=== PATIENT | male | born 1970 | race Caucasian/White ===

== ENCOUNTER 2018-01-04 18:21 | Emergency (ER) | payer MEDICARE, SELFPAY ==
[2018-01-04 18:22] VITALS: BP 115/76; PULSE 89; RESP 16; TEMP 36.6; O2SAT 94; BMI 17.4
--- NOTE | 2018-01-04 18:57 | CT_ITS ---
STUDY: CT BRAIN WITHOUT CONTRAST REASON FOR EXAM: Male, 47 years old. Trauma RADIATION DOSAGE (If Supplied By Facility): CTDIvol = ( 44.99 ) mGy, DLP = ( 1659.71 ) mGycm TECHNIQUE: Transaxial CT imaging of the brain was performed without administration of intravenous contrast material. Individualized dose optimization techniques were used for this CT. COMPARISON: None. FINDINGS: Normal soft tissue structures. Postsurgical changes status post right frontal and left parietal craniotomy.. There is depression of the left parietal bone at the surgical site.. There is markedly distention of the lateral third ventricles with normal size fourth ventricle and tiny sylvian aqueduct which may be consistent with aqueduct stenosis Normal white matter tracts of the cerebral hemispheres. Normal basal ganglia and thalami. Normal brainstem. Normal cerebellum. There are small bilateral bifrontal subdural effusions or cystic hygromas. There is no intracranial hemorrhage. There are no findings of an acute ischemic infarction. Mild mucosal thickening in the right ethmoid sinus CT/Brain/Head without Contrast IMPRESSION: Small bilateral bifrontal subdural effusions or cystic hygromas. 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 At the surgical site on the left there is depression of the bone flap but no evidence for acute hemorrhage Electronically Signed: Ghulam Levin MD at 19:50 EDT , Service support ,
[2018-01-04] MEDS: Lidocaine/Epi/Tetracaine 50 ML 1 APPLIC TOPICAL (19:23)
--- NOTE | 2018-01-04 20:22 | ED.VISSUMM ---
- ER Visit Summary Date of Service: 01/04/18 Chief Complaint: Fall History of Present Illness: The patient is a 47 M with history of schizophrenia, explosive anger fits, and TBI. Patient fell from his wheelchair at his extended care facility. He hit his forehead on the floor. There is no loss of consciousness per staff members. Patient has no complaints on arrival. Physical Examination: Vital signs unremarkable. Patient is lying in bed no acute distress. Head and neck examination was a 3 cm linear laceration of the upper forehead. Bleeding is well controlled at this time. There is no C-spine tenderness. Heart is regular rate and rhythm. Lung sounds are clear. There is no chest wall tenderness. Abdomen is soft nontender. Pelvis is stable. Extremity examination reveals no focal tenderness with good range of motion throughout. Test Results: CT head shows small bilateral bifrontal subdural effusions or cystic hygromas. 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 Postop changes are noted. There is no evidence of hemorrhage. Emergency Department Course and Treatment: Let was initially applied to the laceration. This was followed by 2 cc 1% lidocaine. Wound was cleansed and 6 simple interrupted sutures of 5-0 nylon were placed with good approximation. Patient tolerated the procedure well. I have recommended follow-up with neurology to compare this CT to any that he has had prior to see if the hydrocephalus changes are new. Treatment Plan: [] Disposition: Discharge Impression: 1. Mechanical fall 2. Closed head injury 3. Forehead laceration status post suture This note was generated with [employer] dictation software. It may contain incorrect words, spelling, and punctuation that were not noted in review of the chart prior to signing ED Disposition - Plan for ED Patient: Chief Complaint: Head Injury Referrals: Juan David Lyons [Primary Care Provider] -
--- NOTE | 2018-01-04 20:25 | ED.DEP ---
ED Disposition - Plan for ED Patient: Disposition: Home or Assisted Living Chief Complaint: Head Injury Instructions: ED Head Injury Closed, ED Laceration Facial Sutr Tape Referrals: Juan David Lyons [Primary Care Provider] - 7 Days for suture removal Additional Instructions: CT scan reveals possible changes of hydrocephalus. He needs to be evaluated by his doctor and possibly a neurologist who can compare this to prior CT scans.
[2018-01-04 21:28] VITALS: PULSE 82; RESP 16; O2SAT 95
--- NOTE | 2018-01-04 21:36 | ED.RN ---
report given to staff member at bedside who was on the phone with nurse at facility. States no need to call [facility] Health care for any further report. States understanding of care for wound/sutures. Denies questions.
== END 2018-01-04 21:39 | disposition home or self-care (01) ==
PROVIDERS: Emergency Provider Emergency Medicine; Family Provider Family Medicine; PCP Family Medicine
DX: S01.81XA Laceration without foreign body of other part of head, initial encounter (principal); W05.0XXA Fall from non-moving wheelchair, initial encounter; Y93.9 Activity, unspecified; Y92.129 Unspecified place in nursing home as the place of occurrence of the external cause; F20.9 Schizophrenia, unspecified; Z87.820 Personal history of traumatic brain injury; Z79.899 Other long term (current) drug therapy
CPT/HCPCS: 12013; 70450; 99284

== ENCOUNTER 2018-05-11 20:29 | Observation (INO) | payer MEDICARE, MEDICAID, SELFPAY ==
[2018-05-11 20:30] VITALS: BP 155/87; PULSE 62; RESP 14; TEMP 36.8; O2SAT 97; BMI 21.4
[2018-05-11 20:35] VITALS: BP 155/87; PULSE 60; RESP 14; TEMP 36.8
--- NOTE | 2018-05-11 20:47 | RAD_ITS ---
STUDY: X-RAY CHEST REASON FOR EXAM: Male, 48 years old. Cough TECHNIQUE: PA and 2 lateral views of the chest. COMPARISON: None. FINDINGS: Catheter noted in the upper abdomen The lungs are clear and expanded. There is no demonstrated pleural abnormality. Normal size heart. Normal mediastinum and myles. Normal visualized pulmonary arteries. Normal visualized aortic arch and descending thoracic aorta. Normal visualized thoracic spine. Normal visualized ribs, clavicles, and shoulders. There is no demonstrated abnormality of the visualized soft tissue structures of the upper abdomen. RAD/Chest PA and Lateral IMPRESSION: No acute pulmonary process Electronically Signed: Kevin Torres MD at 22:57 EST , Service support ,
--- NOTE | 2018-05-11 20:50 | ED.VISSUMM ---
- ER Visit Summary Date of Service: 05/11/18 Chief Complaint: Decreased oral intake and decreased urine output History of Present Illness: The patient is a 48 M who presents with decreased oral intake and decreased urine output per [facility] staff that began yesterday. Staff states the patient has not had any urine output since 0700 today. Staff reports that the patient has had decreased oral intake as well however, EMS states the patient was eating upon their arrival. Patient denies any fevers or chills. Patient denies any shortness of breath or chest pain. Patient denies any nausea or vomiting. Patient only answers yes/no questions and is a poor historian. Physical Examination: Vital signs are stable. Patient is afebrile. Patient is not tachycardic. Patient is in no acute distress. Oral mucosa is pink and somewhat dry. Neck is supple. Trachea is midline. There is no JVD noted. Heart was regular rate and rhythm. Lungs are clear but diminished bilaterally. There is adequate respiratory effort noted. Abdomen is soft. Bowel sounds are normal. There is no tenderness. There is no guarding noted. There is an erythematous macular rash to the face. There are no vesicles or crusting noted. There is no discharge or drainage. The rash is consistent with eczema. Patient is alert. Cranial nerves II through XII are intact. There are no focal motor or sensory deficits noted. Test Results: CBC was normal. Basic metabolic profile showed a mild hypokalemia at 3.4. Urinalysis did not show any evidence of urinary tract infection. PA and lateral chest x-ray does not show any acute cardiopulmonary process. Dilantin level was obtained and was elevated at 42.1. Emergency Department Course and Treatment: Patient was given an injection of Haldol. Patient became more cooperative after this. Case was discussed with the hospitalist. Patient will be admitted. Disposition: Admit to hospital Impression: Dilantin toxicity This note was generated with [employer] dictation software. It may contain incorrect words, spelling, and punctuation that were not noted in review of the chart prior to signing ED Disposition - Plan for ED Patient: Disposition: Acute Care Hospital [facility] Chief Complaint: General Illness Diagnosis: Dilantin toxicity Referrals: Juan David Lyons [Primary Care Provider] -
--- NOTE | 2018-05-11 20:55 | ED.DCSUM_ITS ---
- ER Visit Summary Date of Service: 05/11/18 Chief Complaint: Decreased oral intake and decreased urine output History of Present Illness: The patient is a 48 M who presents with decreased oral intake and decreased urine output per assisted staff that began yesterday. Staff states the patient has not had any urine output since 0700 today. Staff reports that the patient has had decreased oral intake as well however, EMS states the patient was eating upon their arrival. Patient denies any fevers or chills. Patient denies any shortness of breath or chest pain. Patient denies any nausea or vomiting. Patient only answers yes/no questions and is a poor historian. Physical Examination: Vital signs are stable. Patient is afebrile. Patient is not tachycardic. Patient is in no acute distress. Oral mucosa is pink and somewhat dry. Neck is supple. Trachea is midline. There is no JVD noted. Heart was regular rate and rhythm. Lungs are clear but diminished bilaterally. There is adequate respiratory effort noted. Abdomen is soft. Bowel sounds are normal. There is no tenderness. There is no guarding noted. There is an erythematous macular rash to the face. There are no vesicles or crusting noted. There is no discharge or drainage. The rash is consistent with eczema. Patient is alert. Cranial nerves II through XII are intact. There are no focal motor or sensory deficits noted. Test Results: CBC was normal. Basic metabolic profile showed a mild hypokalemia at 3.4. Urinalysis did not show any evidence of urinary tract infection. PA and lateral chest x-ray does not show any acute cardiopulmonary process. Dilantin level was obtained and was elevated at 42.1. Emergency Department Course and Treatment: Patient was given an injection of Haldol. Patient became more cooperative after this. Case was discussed with the hospitalist. Patient will be admitted. Disposition: Admit to hospital Impression: Dilantin toxicity This note was generated with [employer] dictation software. It may contain incorrect words, spelling, and punctuation that were not noted in review of the chart prior to signing ED Disposition - Plan for ED Patient: Disposition: Acute Care Hospital [facility] Chief Complaint: General Illness Diagnosis: Dilantin toxicity Referrals: Juan David Lyons [Primary Care Provider] -
[2018-05-11] MEDS: Haloperidol Lactate 5 MG/ML Vial 2 MG IM (21:35)
--- NOTE | 2018-05-11 21:47 | ED.RN ---
PT REFUSING IV AND BLOOD WORK. PT REPORTS, I WANT TO LEAVE, WHERE ARE MY KEYS? PT TRYING TO CLIMB OUT OF BED.THIS RN EDUCATED PT WHY HE IS IS PRESENT IN ED AND WHY HE CANNOT LEAVE. PT MAKING MULTIPLE ATTEMPTS TO HIT THIS RN. DR. RICHTER INFORMED OF PT AGITATION AND ATTEMPTS TO CRAWL OUT OF BED. PT REMOVES MONITOR AND GOWN AND MOVES RESTLESSLY IN THE BED. PT MEDICATED WITH HALDOL, SEE MAR. PT BEING OBSERVED.
[2018-05-11 22:03] LABS: Absolute Neutrophil Count 3.8 X10^3/uL (2.0-7.7); Basophil# 0.04 X10^3/uL; Basophil% 0.4 % (0-1); Eosinophil# 0.44 X10^3/uL; Eosinophils% 4.1 % (0-5); Hematocrit 40.1 % (40-54); Hemoglobin 13.2 g/dl (13.0-16.5); Lymphocyte % 48.1 % (19-41); Mean Corp Hgb Conc 32.9 g/gl (32-36); Mean Corpuscular Hgb 29.9 pg (27.0-32.0); Mean Corpuscular Volume 90.7 fL (80-94); Mean Platelet Vol. 8.9 fl (6.2-12.0); Monocyte# 1.36 X10^3/uL; Monocyte% 12.6 % (0-10); Neutrophil # 3.76 X10^3/uL (2.7-7.7); Neutrophil % 34.7 % (47-70); Platelet Count 317 K/mm3 (150-450); RBC Distribution Width CV 12.5 % (11.6-14.6); RBC Distribution Width SD 41.7 fl (35.1-43.9); Red Blood Count 4.42 M/mm3 (4.6-6.2); White Blood Count 10.8 K/mm3 (4.4-11.0)
[2018-05-11 22:04] LABS: Differential Indicated SCAN CRITERIA MET; POSITIVE COUNT NO; POSITIVE DIFFERENTIAL YES; POSITIVE MORPHOLOGY YES
[2018-05-11] MEDS: 0.9% Normal Saline 1,000 ML 1000 ML IV (22:21)
[2018-05-11 22:22] VITALS: BP 127/85; PULSE 70; RESP 16; O2SAT 95
[2018-05-11 22:31] LABS: Differential Comment SCANNED; Platelet Estimate ADEQUATE (ADEQ)
[2018-05-11 22:37] LABS: AST(SGOT) 17 U/L (15-37); Alanine Aminotransfer ALT/SGPT 26 U/L (16-61); Albumin, Serum 3.7 g/dL (3.2-5.0); Alkaline Phosphatase 225 U/L (45-117); Anion Gap 9 (5-15); BUN 19 mg/dL (7-18); BUN/Creat Ratio 31.1 RATIO (10-20); Calcium,Total 8.7 mg/dL (8.5-10.1); Chloride 103 mmol/L (98-107); Creatinine, Serum 0.61 mg/dL (0.70-1.30); EST Glomerular Filtration Rate 149 mL/min (>60); Est Glom Filt Rate - Afr Amer 180 mL/min (>60); Estimated Creatinine Clearance 120.08 ml/min; Globulin 3.7 g/dL (2.2-4.2); Glucose 61 mg/dL (74-106); Potassium 3.4 mmol/L (3.5-5.1); Protein, Total 7.4 g/dL (6.4-8.2); Sodium Level 141 mmol/L (136-145)
[2018-05-11 23:09] LABS: Mucous, Urine 0 SEEN /hpf (<or=2+); Red Blood Cells-Urine 0 SEEN /hpf (0-5); Squamous Epithelial Cells - UA 0 SEEN /hpf (0-5)
[2018-05-11 23:18] LABS: Color, Urine Yellow (Yellow); Glucose, Dipstick Normal (Normal); Ketone-Dipstick Negative (Negative); Leukocyte Esterase-Dipstick 25 /ul (Negative); Nitrite-Dipstick Negative (Negative); Occult Blood-Urine 10 /ul (Negative); Protein-Dipstick Negative (Negative); Urine Bilirubin Dipstick Negative (Negative); Urine Clarity Sl. Cloudy (Clear); Urine Urobilinogen Normal (Normal)
[2018-05-11 23:19] LABS: Amorphous Sediment 1+; Bacteria RARE /hpf (None Seen); White Blood Cells 0-5 SEEN /hpf (0-5)
[2018-05-11 23:22] LABS: Phenytoin (Dilantin) Level 42.1 mL (10.0-20.0)
--- NOTE | 2018-05-11 23:32 | HP.PCM_ITS ---
Problem List (1) Dilantin toxicity Status: Acute History of Present Illness Date of Admission: 05/11/18 Chief Complaint: Decreased oral intake and no urine output The patient is a 48 year old M who lives at a longterm with a previous history hypertension; subarachnoid hemorrhage and brain surgery; seizure disorder who was sent from the extended care facility to the emergency department because of decreased oral intake and no urine output for 1 day. At emergency department patient was found to have high Dilantin level. His potassium level was 3.4 and his glucose was 61. His creatinine was 0.61. BUN over creatinine was 31.1. On papers from the longterm his temperature was marked at 100.9; respiration of 8. However patient has been afebrile at the hospital. Past Medical History Medical History: Medical History (Last Updated 05/12/18 @ 01:45 by Leonardo Nieves MD) Seizure R56.9 HTN (hypertension) I10 Allergies No Known Allergies Allergy (Verified 05/11/18 20:30) Home Medications: Ambulatory Orders Medication Instructions Recorded Docusate Sodium [Colace Clear] 50 mg PO DAILY 01/04/18 Gabapentin [Neurontin] 400 mg PO QHS 01/04/18 Gabapentin [Neurontin] 400 mg PO TID 01/04/18 Haloperidol Decanoate [Haldol 50 mg IM QWEEK 01/04/18 Decanoate 50] Hydroxyzine Pamoate [Vistaril] 50 mg PO TID PRN PRN 01/04/18 Magnesium Oxide [Mag-Ox 400] 400 mg PO BID 01/04/18 Metoprolol Tartrate 25 mg PO TID 01/04/18 Multivit-Min/Iron Fum/Folic AC 1 each PO DAILY 01/04/18 [Izpqd-Pgbbbry-Pcakdhbl Tablet] Paroxetine HCl [Paxil] 40 mg PO DAILY 01/04/18 Phenytoin Na [Dilantin] 160 mg PO DAILY 01/04/18 Phenytoin Na [Dilantin] 200 mg PO BID 01/04/18 Quetiapine Fumarate [Seroquel] 100 mg PO DAILY 01/04/18 Sodium Bicarbonate 650 mg PO TID 01/04/18 Aspirin 81 mg PO DAILY 05/11/18 Phenytoin Sodium Extended 60 mg PO TID 05/11/18 [Dilantin] Surgical History: - - Unable to obtain since patient is not nontalkative. However emergency department doctor reported history of brain surgery. Lives: Longterm Smoking Status: Current every day smoker - *Family History Maternal History Items: - - Unable to obtain from patient since he is non talkative Paternal History Items: - - Unable to obtain from patient since he is non talkative Review of Systems Unable to obtain accurate/complete ROS d/t: Unable to obtain from patient since he is non talkative VTE Information - Inpt Only VTE Present on Admission: No VTE Mechan Device Prophylaxis: None VTE Pharm Prophylaxis ordered?: Yes Patient Problems: Active and Suspected Problems (Last Updated 05/12/18 @ 01:45 by Leonardo Nieves MD) Dilantin toxicity (Acute) - Physical Exam General: Alert, - - Mom took her to HEENT: Atraumatic Neck: Supple, No JVD, Negative Carotid Bruits Lungs: Clear to auscultation, Normal air movement Cardiovascular: Regular rate, No murmurs Abdomen: Bowel Sounds Present, Soft, Non Tender Extremities: No edema, Capillary Refill Less than 3 Seconds Skin: - - Erythematous rash with yellowish surrounding discolorations. Musculoskeletal: No Tenderness to Palpation of Joints or Extremities Neurological: - - Patient is not following commands. Psych/Mental Status: Normal Affect Vital Signs Temp Pulse Resp BP Pulse Ox 98.2 F 70 16 127/85 H 95 05/11/18 20:35 05/11/18 22:22 05/11/18 22:22 05/11/18 22:22 05/11/18 22:22 Oxygen Delivery Method Room Air Weight: 58.6 kg Body Mass Index (BMI) 21.4 Laboratory Tests Past 24 Hrs 05/11/18 05/11/18 05/11/18 11:00 22:05 22:12 WBC 10.8 RBC 4.42 L Hgb 13.2 Hct 40.1 MCV 90.7 MCH 29.9 MCHC 32.9 RDW 12.5 RDW Differential 41.7 Plt Count 317 MPV 8.9 Immature Gran % (Auto) 0.100 Neut % (Auto) 34.7 L Lymph % (Auto) 48.1 H [place] % (Auto) 12.6 H Eos % (Auto) 4.1 Baso % (Auto) 0.4 Absolute Neuts (auto) 3.8 Absolute Lymphs (auto) 5.20 H Total Counted Not Reportable Differential Comment SCANNED Platelet Estimate ADEQUATE Sodium 141 Potassium 3.4 L Chloride 103 Carbon Dioxide 29.0 Anion Gap 9 BUN 19 H Creatinine 0.61 L Estim Creat Clear Calc 120.08 Est GFR (MDRD) Af Amer 180 Est GFR (MDRD) Non-Af 149 BUN/Creatinine Ratio 31.1 H Glucose 61 L Calcium 8.7 Total Bilirubin 0.20 AST 17 ALT 26 Alkaline Phosphatase 225 H Total Protein 7.4 Albumin 3.7 Globulin 3.7 Albumin/Globulin Ratio 1.0 Urine Color Yellow Urine Clarity Sl. Cloudy Urine pH 7.0 Ur Specific Stamps 1.010 Urine Protein Negative Urine Glucose (UA) Normal Urine Ketones Negative Urine Occult Blood 10 H Urine Nitrite Negative Urine Bilirubin Negative Urine Urobilinogen Normal Ur Leukocyte Esterase 25 H Urine RBC 0 SEEN Urine WBC 0-5 SEEN Ur Squamous Epith Cells 0 SEEN Amorphous Sediment 1+ Urine Bacteria RARE Urine Mucus 0 SEEN Phenytoin 05/11/18 22:12 WBC RBC Hgb Hct MCV MCH MCHC RDW RDW Differential Plt Count MPV Immature Gran % (Auto) Neut % (Auto) Lymph % (Auto) [place] % (Auto) Eos % (Auto) Baso % (Auto) Absolute Neuts (auto) Absolute Lymphs (auto) Total Counted Differential Comment Platelet Estimate Sodium Potassium Chloride Carbon Dioxide Anion Gap BUN Creatinine Estim Creat Clear Calc Est GFR (MDRD) Af Amer Est GFR (MDRD) Non-Af BUN/Creatinine Ratio Glucose Calcium Total Bilirubin AST ALT Alkaline Phosphatase Total Protein Albumin Globulin Albumin/Globulin Ratio Urine Color Urine Clarity Urine pH Ur Specific Stamps Urine Protein Urine Glucose (UA) Urine Ketones Urine Occult Blood Urine Nitrite Urine Bilirubin Urine Urobilinogen Ur Leukocyte Esterase Urine RBC Urine WBC Ur Squamous Epith Cells Amorphous Sediment Urine Bacteria Urine Mucus Phenytoin 42.1 H* Assessment/Plan All Active Problems (Last Updated 05/12/18 @ 01:45 by Leonardo Nieves MD) Dilantin toxicity (Acute) The patient is a 48 year old M who lives at a longterm with a significant history of hypertension; subarachnoid hemorrhage; seizure disorder who was sent from the extended care facility to the emergency department because of decreased oral intake and no urine output for 1 day; and found to have elevated Dilantin level. Dilantin toxicity Notably patient was not noted to have any nystagmus; or unstable vitals. He is not grossly bradycardic or hypotensive. Hold Dilantin for now Placed on telemetry monitoring. Seizure precautions in place Dehydration His BUN is 19; while his creatinine is 0.61. His low creatinine is due to his poor muscle mass from probably lying down all the time. We will hydrate patient with dextrose with potassium especially as patient has mild hyperkalemia and hypoglycemia. Hypoglycemia Likely due to poor oral intake. Dextrose and potassium ordered. Accucheck Hypokalemia Likely due to poor intake Decrease potassium ordered. Seizure disorder Dilantin on hold at this time Cardiac precautions in place Continue gabapentin Hypertension Due to Dilantin toxicity which can cause hypotension although patient is not hypotensive at this time would hold metoprolol. With put patient on as needed labetalol. Elevated alkaline phosphatase level Review of medical records show that this is chronic Depression Paxil continued Tobacco abuse Counseled DVT prophylaxis Subcutaneous heparin Code Visit OBSV E&M: [id number] Initial observation care L3
[2018-05-12] VITALS (19 sets, daily range): BP systolic 96–135; BP diastolic 65–92; PULSE 59–76; RESP 14–18; TEMP 36.3–37.1; O2SAT 95–100; BMI 19.5; BMI 19.6
[2018-05-12] MEDS: Potassium Chloride 40 MEQ in Dext 5%-0.45% NS 1,000 ML 100 MEQ IV (01:42)
[2018-05-12 01:56] LABS: Bedside Glucose 68 mg/dL (70-110)
[2018-05-12 03:56] LABS: Bedside Glucose 92 mg/dL (70-110)
[2018-05-12] MEDS: Heparin Injection (Vial) 5,000 UNIT/ML VIAL 5000 UNIT SC ×3 (06:24→21:34)
[2018-05-12] MEDS: Sodium Bicarbonate 650 MG Tablet PO ×3 (06:24→21:34)
[2018-05-12] MEDS: Gabapentin 400 MG Capsule PO ×3 (08:00→21:34)
[2018-05-12] MEDS: Aspirin 81 MG TAB.CHEW PO (08:00)
[2018-05-12] MEDS: Multivitamins,Ther W-Minerals Tablet 1 TABLET PO (08:00)
[2018-05-12] MEDS: Magnesium Oxide 400 MG Tablet PO ×2 (09:47→21:34)
[2018-05-12] MEDS: QUEtiapine 100 MG Tablet PO (09:47)
[2018-05-12] MEDS: Docusate Sodium 100 MG/10 ML UDC 50 MG PO (09:57)
--- NOTE | 2018-05-12 10:09 | CASEMGMT ---
Patient is from [facility]. 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 Plan: Return to [facility] under intermediate level of care. Poonam DUCKWORTH MSW
--- NOTE | 2018-05-12 11:49 | PCM.TXEXTCAR ---
- Diet 05/12/18 00:34 Diet: Cardiac/Low Cholesterol Food consistency:: Regular Liquid Consistency:: Regular/Thin Is pt able to select menu?: No - Routine Orders/Code Status Code Status: DNRCC - Allergies/Procedures Done in Hospital Allergies/Adverse Reactions: Allergies No Known Allergies Allergy (Verified 05/11/18 20:30) - Type of Care/Length of Stay Estimated LOS: More Than 30 Days Type of Care Needed: Intermediate Rehab Potential: Poor Prognosis: Poor - Additional Orders/Day of Discharge Day of Discharge: 05/12/18 - Follow Up Care Primary Care Physician: Juan David Lyons [Primary Care Provider] -
--- NOTE | 2018-05-12 11:51 | PCM.DC.SUM ---
Discharge Date and Diagnosis - Problem List Patient Problems: Active and Suspected Problems (Last Updated 05/12/18 @ 01:45 by Leonardo Nieves MD) Dilantin toxicity (Acute) Date of Admission: 05/11/18 - Primary Discharge Diagnosis Active and Suspected Problems (Last Updated 05/12/18 @ 01:45 by Leonardo Nieves MD) Dilantin toxicity (Acute) Hospital Course and Treatment Summary of Care Provided: The patient is a 48 year old M [] Patient Problems: Active and Suspected Problems (Last Updated 05/12/18 @ 01:45 by Leonardo Nieves MD) Dilantin toxicity (Acute) - Physical Exam Vital Signs Temp Pulse Resp BP Pulse Ox 98.4 F 66 14 135/76 H 96 05/12/18 08:00 05/12/18 08:00 05/12/18 08:00 05/12/18 08:00 05/12/18 08:00 Oxygen Delivery Method Room Air Weight: 53.3 kg Body Mass Index (BMI) 19.5 Intake and Output for Last 24 Hours 05/10/18 05/11/18 05/12/18 23:59 23:59 23:59 Intake Total 505 / 505 Balance 505 / 505 Laboratory Tests Past 24 Hrs 05/11/18 05/11/18 05/11/18 11:00 22:05 22:12 WBC 10.8 RBC 4.42 L Hgb 13.2 Hct 40.1 MCV 90.7 MCH 29.9 MCHC 32.9 RDW 12.5 RDW Differential 41.7 Plt Count 317 MPV 8.9 Immature Gran % (Auto) 0.100 Neut % (Auto) 34.7 L Lymph % (Auto) 48.1 H [place] % (Auto) 12.6 H Eos % (Auto) 4.1 Baso % (Auto) 0.4 Absolute Neuts (auto) 3.8 Absolute Lymphs (auto) 5.20 H Total Counted Not Reportable Differential Comment SCANNED Platelet Estimate ADEQUATE Sodium 141 Potassium 3.4 L Chloride 103 Carbon Dioxide 29.0 Anion Gap 9 BUN 19 H Creatinine 0.61 L Estim Creat Clear Calc 120.08 Est GFR (MDRD) Af Amer 180 Est GFR (MDRD) Non-Af 149 BUN/Creatinine Ratio 31.1 H Glucose 61 L Calcium 8.7 Total Bilirubin 0.20 AST 17 ALT 26 Alkaline Phosphatase 225 H Total Protein 7.4 Albumin 3.7 Globulin 3.7 Albumin/Globulin Ratio 1.0 Urine Color Yellow Urine Clarity Sl. Cloudy Urine pH 7.0 Ur Specific [place] 1.010 Urine Protein Negative Urine Glucose (UA) Normal Urine Ketones Negative Urine Occult Blood 10 H Urine Nitrite Negative Urine Bilirubin Negative Urine Urobilinogen Normal Ur Leukocyte Esterase 25 H Urine RBC 0 SEEN Urine WBC 0-5 SEEN Ur Squamous Epith Cells 0 SEEN Amorphous Sediment 1+ Urine Bacteria RARE Urine Mucus 0 SEEN Phenytoin 05/11/18 05/12/18 22:12 11:32 WBC RBC Hgb Hct MCV MCH MCHC RDW RDW Differential Plt Count MPV Immature Gran % (Auto) Neut % (Auto) Lymph % (Auto) [place] % (Auto) Eos % (Auto) Baso % (Auto) Absolute Neuts (auto) Absolute Lymphs (auto) Total Counted Differential Comment Platelet Estimate Sodium Potassium Chloride Carbon Dioxide Anion Gap BUN Creatinine Estim Creat Clear Calc Est GFR (MDRD) Af Amer Est GFR (MDRD) Non-Af BUN/Creatinine Ratio Glucose Calcium Total Bilirubin AST ALT Alkaline Phosphatase Total Protein Albumin Globulin Albumin/Globulin Ratio Urine Color Urine Clarity Urine pH Ur Specific [place] Urine Protein Urine Glucose (UA) Urine Ketones Urine Occult Blood Urine Nitrite Urine Bilirubin Urine Urobilinogen Ur Leukocyte Esterase Urine RBC Urine WBC Ur Squamous Epith Cells Amorphous Sediment Urine Bacteria Urine Mucus Phenytoin 42.1 H* Pending POC Glucose 05/12/18 05/12/18 03:50 01:47 POC Glucose 92 68 L Home Medications: Medications to take at Discharge Docusate Sodium [Colace Clear] 50 mg PO DAILY 01/04/18 Gabapentin [Neurontin] 400 mg PO QHS 01/04/18 Gabapentin [Neurontin] 400 mg PO TID 01/04/18 Haloperidol Decanoate [Haldol Decanoate 50] 50 mg IM QWEEK 01/04/18 Hydroxyzine Pamoate [Vistaril] 50 mg PO TID PRN PRN 01/04/18 Magnesium Oxide [Mag-Ox 400] 400 mg PO BID 01/04/18 Metoprolol Tartrate 25 mg PO TID 01/04/18 Multivit-Min/Iron Fum/Folic AC [Yapyx-Qpiexdl-Edzjdgdf Tablet] 1 each PO DAILY 01/04/18 Paroxetine HCl [Paxil] 40 mg PO DAILY 01/04/18 Phenytoin Na [Dilantin] 200 mg PO BID 01/04/18 Quetiapine Fumarate [Seroquel] 100 mg PO DAILY 01/04/18 Sodium Bicarbonate 650 mg PO TID 01/04/18 Aspirin 81 mg PO DAILY 05/11/18 Primary Care Physician: Juan David Lyons [Primary Care Provider] - Medical Necessity - Tobacco Use Smoking Status: Current every day smoker
--- NOTE | 2018-05-12 12:04 | CASEMGMT ---
Patient is ready for discharge back to [facility] today. CÉSAR faxed orders. Called [facility] and arranged for patient to get picked up at 1p via cot. CÉSAR called patient's mom and let her know about d/c. CÉSAR called [facility] and let them know cone picker time for patient. Plan: d/c back to [facility] under intermediate level of care. [facility] to transport via cot. Poonam DUCKWORTH MSW
[2018-05-12 12:39] LABS: Phenytoin (Dilantin) Level 38.3 mL (10.0-20.0)
--- NOTE | 2018-05-12 12:45 | CASEMGMT ---
Patient's discharge is canceled as his Dilantin level is still high. SW notified patient's mom, [place] and [place]. Poonam DUCKWORTH LOAN EXPEDITOR
--- NOTE | 2018-05-12 12:47 | PCM.PN.HOSP ---
Patient Problems: Active and Suspected Problems (Last Updated 05/12/18 @ 01:45 by Leonardo Nieves MD) Dilantin toxicity (Acute) Subjective: Patient is a 48-year-old gentleman with history of subarachnoid hemorrhage with subsequent shunt, seizure disorder currently residing at an extended care facility brought to the emergency department with increasing lethargy decreased oral intake and urinary output for the day. Patient was found to have markedly elevated Dilantin level admitted to a monitored bed for further management Objective: GENERAL: Appears not to be in distress HEENT: moist oral mucosa EYES; Anicteric, Normal Conjunctiva NECK; supple, normal thyroid, RESPIRATORY: Diminished to auscultation bilaterally, CARDIOVASCULAR: Regular S1 S2, GI: soft, non-tender, normoactive bowel sounds, : No Renal angle tenderness; EXTREMITIES: No edema, no clubbing, NEURO: Awake; SKIN: No Rash PSYCH; very flat affect Vitals/I&O's: Vital Signs Temp Pulse Resp BP Pulse Ox 98.5 F 60 16 96/68 97 05/12/18 12:26 05/12/18 12:26 05/12/18 12:26 05/12/18 12:26 05/12/18 12:26 Oxygen Delivery Method Room Air Weight: 53.3 kg Body Mass Index (BMI) 19.5 Intake and Output for Last 24 Hours 05/10/18 05/11/18 05/12/18 23:59 23:59 23:59 Intake Total 1366 / 1366 Balance 1366 / 1366 Laboratory Results 05/11/18 11:00: Urine Color Yellow, Urine Clarity Sl. Cloudy, Urine pH 7.0, Ur Specific [place] 1.010, Urine Protein Negative, Urine Glucose (UA) Normal, Urine Ketones Negative, Urine Occult Blood 10 H, Urine Nitrite Negative, Urine Bilirubin Negative, Urine Urobilinogen Normal, Ur Leukocyte Esterase 25 H, Urine RBC 0 SEEN, Urine WBC 0-5 SEEN, Ur Squamous Epith Cells 0 SEEN, Amorphous Sediment 1+, Urine Bacteria RARE, Urine Mucus 0 SEEN 05/11/18 22:05: WBC 10.8, RBC 4.42 L, Hgb 13.2, Hct 40.1, MCV 90.7, MCH 29.9, MCHC 32.9, RDW 12.5, RDW Differential 41.7, Plt Count 317, MPV 8.9, Immature Gran % (Auto) 0.100, Neut % (Auto) 34.7 L, Lymph % (Auto) 48.1 H, [place] % (Auto) 12.6 H, Eos % (Auto) 4.1, Baso % (Auto) 0.4, Absolute Neuts (auto) 3.8, Absolute Lymphs (auto) 5.20 H, Total Counted Not Reportable, Differential Comment SCANNED, Platelet Estimate ADEQUATE 05/11/18 22:12: Sodium 141, Potassium 3.4 L, Chloride 103, Carbon Dioxide 29.0, Anion Gap 9, BUN 19 H, Creatinine 0.61 L, Estim Creat Clear Calc 120.08, Est GFR (MDRD) Af Amer 180, Est GFR (MDRD) Non-Af 149, BUN/Creatinine Ratio 31.1 H, Glucose 61 L, Calcium 8.7, Total Bilirubin 0.20, AST 17, ALT 26, Alkaline Phosphatase 225 H, Total Protein 7.4, Albumin 3.7, Globulin 3.7, Albumin/Globulin Ratio 1.0 05/11/18 22:12: Phenytoin 42.1 H* 05/12/18 01:47: POC Glucose 68 L 05/12/18 03:50: POC Glucose 92 05/12/18 11:32: Phenytoin 38.3 H* [facility] Admin: 05/12/18 08:00 Dose: 81 mg Bisacodyl (Dulcolax) 5 mg PO DAILY PRN PRN PRN Reason: Constipation Docusate Sodium (Colace Syrup) 50 mg PO DAILY ON LICENSE OF [facility] Last Admin: 05/12/18 09:57 Dose: 50 mg Gabapentin ([facility]ontin) [facility] Admin: 05/12/18 12:25 Dose: 400 mg Heparin Sodium (Porcine) (Heparin Na) 5,000 unit SC Q8 ON LICENSE OF [facility] Last Admin: 05/12/18 06:24 Dose: 5,000 unit Hydroxyzine Pamoate (Vistaril Pamoate Capsule) 50 mg PO TID PRN PRN PRN Reason: AGITATION Labetalol HCl (Trandate) 10 mg IV Q4H PRN PRN PRN Reason: SBP>160 Magnesium Hydroxide (Milk Of Magnesia) 30 ml PO DAILY PRN PRN PRN Reason: Constipation Magnesium Oxide (Mag-Ox 400) 400 mg PO BID ON LICENSE OF [facility] Last Admin: 05/12/18 09:47 Dose: 400 mg Multivitamins/Minerals (Multivitamin With Minerals) 1 tablet PO DAILYCM ON LICENSE OF [facility] Last Admin: 05/12/18 08:00 Dose: 1 tablet Paroxetine HCl (Paxil) 40 mg PO DAILY ON LICENSE OF [facility] Last Admin: 05/12/18 09:47 Dose: 40 mg Quetiapine Fumarate (Seroquel) 100 mg PO DAILY ON LICENSE OF [facility] Last Admin: 05/12/18 09:47 Dose: 100 mg Sodium Bicarbonate (Sodium Bicarbonate) 650 mg PO TID ON LICENSE OF [facility] Last Admin: 05/12/18 06:24 Dose: 650 mg Sodium Chloride () 5 - 15 ml IV UD PRN PRN Reason: SALINE FLUSH Medical Necessity - Tobacco Use Smoking Status: Current every day smoker Assessment/Plan All Active Problems (Last Updated 05/12/18 @ 01:45 by Leonardo Nieves MD) Dilantin toxicity (Acute) Patient is a 48-year-old gentleman with history of subarachnoid hemorrhage with subsequent shunt, seizure disorder currently residing at an extended care facility brought to the emergency department with increasing lethargy decreased oral intake and urinary output for the day. Patient was found to have markedly elevated Dilantin level admitted to a monitored bed for further management 1. Acute Dilantin toxicity patient has been admitted to a monitored bed for continuous telemetry monitoring 2. History of subarachnoid hemorrhage with subsequent evacuation. 3. Seizure disorder did continue patient antiseizure medications except for Dilantin with plans to adjust doses on discharge 4. Hypokalemia corrected per protocol 5. Hypertension patient antihypertensives held on admission in view of patient markedly elevated Dilantin levels which can cause hypotension 6. Depression with anxiety patient is on SSRI 7. DVT prophylaxis SC heparin Code Visit Inpatient E&M: 82998 Subs Hosp L3
[2018-05-12 17:35] LABS: Bedside Glucose 109 mg/dL (70-110)
[2018-05-12 21:50] LABS: Bedside Glucose 106 mg/dL (70-110)
[2018-05-13 03:21] VITALS: PULSE 61
[2018-05-13 03:49] VITALS: BP 137/99; PULSE 61; RESP 16; TEMP 36.9; O2SAT 98
[2018-05-13] MEDS: Heparin Injection (Vial) 5,000 UNIT/ML VIAL 5000 UNIT SC (06:08)
[2018-05-13] MEDS: Sodium Bicarbonate 650 MG Tablet PO (06:30)
[2018-05-13 06:35] LABS: Bedside Glucose 85 mg/dL (70-110)
[2018-05-13 07:01] VITALS: PULSE 65
[2018-05-13 08:00] VITALS: O2SAT 95
[2018-05-13 08:40] VITALS: BP 124/84; PULSE 87; RESP 16; TEMP 36.8; O2SAT 99
[2018-05-13] MEDS: Magnesium Oxide 400 MG Tablet PO (08:46)
[2018-05-13] MEDS: Multivitamins,Ther W-Minerals Tablet 1 TABLET PO (08:46)
[2018-05-13] MEDS: Aspirin 81 MG TAB.CHEW PO (08:46)
[2018-05-13] MEDS: QUEtiapine 100 MG Tablet PO (08:46)
[2018-05-13] MEDS: Gabapentin 400 MG Capsule PO ×2 (08:47→12:46)
[2018-05-13] MEDS: Docusate Sodium 100 MG/10 ML UDC 50 MG PO (08:47)
[2018-05-13 10:08] LABS: Phenytoin (Dilantin) Level 36.5 mL (10.0-20.0)
--- NOTE | 2018-05-13 10:31 | PCM.DC.SUM ---
Discharge Date and Diagnosis - Problem List Patient Problems: Active and Suspected Problems (Last Updated 05/12/18 @ 01:45 by Leonardo Nieves MD) Dilantin toxicity (Acute) Date of Admission: 05/11/18 Date of Discharge: 05/13/18 - Primary Discharge Diagnosis Active and Suspected Problems (Last Updated 05/12/18 @ 01:45 by Leonardo Nieves MD) Dilantin toxicity (Acute) Hospital Course and Treatment Summary of Care Provided: Patient is a 48-year-old gentleman with history of subarachnoid hemorrhage with subsequent shunt, seizure disorder currently residing at an extended care facility brought to the emergency department with increasing lethargy decreased oral intake and urinary output for the day. Patient was found to have markedly elevated Dilantin level admitted to a monitored bed for further management 1. Acute Dilantin toxicity patient has been admitted to a monitored bed for continuous telemetry monitoring patient did improve clinically [facility]in 2. History of subarachnoid hemorrhage with subsequent evacuation. 3. Seizure disorder did continue patient antiseizure medications except for Dilantin with plans to adjust doses on discharge 4. Hypokalemia corrected per protocol 5. Hypertension patient antihypertensives held on admission in view of patient markedly elevated Dilantin levels which can cause hypotension 6. Depression with anxiety patient is on SSRI 7. DVT prophylaxis SC heparin Patient Problems: Active and Suspected Problems (Last Updated 05/12/18 @ 01:45 by Leonardo Nieves MD) Dilantin toxicity (Acute) - Physical Exam General: Cooperative HEENT: Atraumatic Neck: Supple Lungs: Clear to auscultation Cardiovascular: Regular rate, Regular Rhythm Psych/Mental Status: Normal Affect Vital Signs Temp Pulse Resp BP Pulse Ox 98.3 F 87 16 124/84 H 99 05/13/18 08:40 05/13/18 08:40 05/13/18 08:40 05/13/18 08:40 05/13/18 08:40 Oxygen Delivery Method Room Air Weight: 53.3 kg Body Mass Index (BMI) 19.5 Intake and Output for Last 24 Hours 05/11/18 05/12/18 05/13/18 23:59 23:59 23:59 Intake Total 1366 / 1366 Balance 1366 / 1366 Laboratory Tests Past 24 Hrs 12/17/18 12/18/18 11:32 08:45 Phenytoin 38.3 H* 36.5 H* POC Glucose 05/13/18 05/12/18 05/12/18 06:27 21:32 17:30 POC Glucose 85 106 109 Discharge Diet: No Restrictions Discharge Activity: May Not Drive Home Medications: Medications to take at Discharge Docusate Sodium [Colace Clear] 50 mg PO DAILY 01/04/18 Gabapentin [Neurontin] 400 mg PO QHS 01/04/18 Gabapentin [Neurontin] 400 mg PO TID 01/04/18 Haloperidol Decanoate [Haldol Decanoate 50] 50 mg IM QWEEK 01/04/18 Hydroxyzine Pamoate [Vistaril] 50 mg PO TID PRN PRN 01/04/18 Magnesium Oxide [Mag-Ox 400] 400 mg PO BID 01/04/18 Metoprolol Tartrate 25 mg PO TID 01/04/18 Multivit-Min/Iron Fum/Folic AC [Gjwbv-Pavnkny-Ikspvtli Tablet] 1 each PO DAILY 01/04/18 Paroxetine HCl [Paxil] 40 mg PO DAILY 01/04/18 Phenytoin Na [Dilantin] 200 mg PO BID 01/04/18 Quetiapine Fumarate [Seroquel] 100 mg PO DAILY 01/04/18 Sodium Bicarbonate 650 mg PO TID 01/04/18 Aspirin 81 mg PO DAILY 05/11/18 Primary Care Physician: Juan David Lyons [Primary Care Provider] - Please follow up with your Primary Care Physician in: IN 1-2 WEEKS Disposition: Asstd Living/Non-Skill NH Minutes spent on discharge:: 35 Patient Condition:: Stable Medical Necessity - Tobacco Use Smoking Status: Current every day smoker Meaningful Use Info Meaningful Use Diagnoses (Choose all that apply): None applicable Code Visit OBSV E&M: 10667 Observation care discharge
--- NOTE | 2018-05-13 10:36 | DS.PCM_ITS ---
Discharge Date and Diagnosis - Problem List Patient Problems: Active and Suspected Problems (Last Updated 05/12/18 @ 01:45 by Leonardo Nieves MD) Dilantin toxicity (Acute) Date of Admission: 05/11/18 Date of Discharge: 05/13/18 - Primary Discharge Diagnosis Active and Suspected Problems (Last Updated 05/12/18 @ 01:45 by Leonardo Nieves MD) Dilantin toxicity (Acute) Hospital Course and Treatment Summary of Care Provided: Patient is a 48-year-old gentleman with history of subarachnoid hemorrhage with subsequent shunt, seizure disorder currently residing at an [facility] brought to the emergency department with increasing lethargy decreased oral intake and urinary output for the day. Patient was found to have markedly elevated Dilantin level admitted to a monitored bed for further management 1. Acute Dilantin toxicity patient has been admitted to a monitored bed for continuous telemetry monitoring patient did improve clinically [facility] with reduced dose of Dilantin 2. History of subarachnoid hemorrhage with subsequent evacuation. 3. Seizure disorder did continue patient antiseizure medications except for Dilantin with plans to adjust doses on discharge 4. Hypokalemia corrected per protocol 5. Hypertension patient antihypertensives held on admission in view of patient markedly elevated Dilantin levels which can cause hypotension 6. Depression with anxiety patient is on SSRI 7. DVT prophylaxis SC heparin Patient Problems: Active and Suspected Problems (Last Updated 05/12/18 @ 01:45 by Leonardo Nieves MD) Dilantin toxicity (Acute) - Physical Exam General: Cooperative HEENT: Atraumatic Neck: Supple Lungs: Clear to auscultation Cardiovascular: Regular rate, Regular Rhythm Psych/Mental Status: Normal Affect Vital Signs Temp Pulse Resp BP Pulse Ox 98.3 F 87 16 124/84 H 99 05/13/18 08:40 05/13/18 08:40 05/13/18 08:40 05/13/18 08:40 05/13/18 08:40 Oxygen Delivery Method Room Air Weight: 53.3 kg Body Mass Index (BMI) 19.5 Intake and Output for Last 24 Hours 05/11/18 05/12/18 05/13/18 23:59 23:59 23:59 Intake Total 1366 / 1366 Balance 1366 / 1366 Laboratory Tests Past 24 Hrs 05/12/18 05/13/18 11:32 08:45 Phenytoin 38.3 H* 36.5 H* POC Glucose 05/13/18 05/12/18 05/12/18 06:27 21:32 17:30 POC Glucose 85 106 109 Discharge Diet: No Restrictions Discharge Activity: May Not Drive Home Medications: Medications to take at Discharge Docusate Sodium [Colace Clear] 50 mg PO DAILY 01/04/18 Gabapentin [Neurontin] 400 mg PO QHS 01/04/18 Gabapentin [Neurontin] 400 mg PO TID 01/04/18 Haloperidol Decanoate [Haldol Decanoate 50] 50 mg IM QWEEK 01/04/18 Hydroxyzine Pamoate [Vistaril] 50 mg PO TID PRN PRN 01/04/18 Magnesium Oxide [Mag-Ox 400] 400 mg PO BID 01/04/18 Metoprolol Tartrate 25 mg PO TID 01/04/18 Multivit-Min/Iron Fum/Folic AC [Pusah-Vrdokzz-Njteddty Tablet] 1 each PO DAILY 01/04/18 Paroxetine HCl [Paxil] 40 mg PO DAILY 01/04/18 Phenytoin Na [Dilantin] 200 mg PO BID 01/04/18 Quetiapine Fumarate [Seroquel] 100 mg PO DAILY 01/04/18 Sodium Bicarbonate 650 mg PO TID 01/04/18 Aspirin 81 mg PO DAILY 05/11/18 Primary Care Physician: Juan David Lyons [Primary Care Provider] - Please follow up with your Primary Care Physician in: IN 1-2 WEEKS Disposition: Asstd Living/Non-Skill NH Minutes spent on discharge:: 35 Patient Condition:: Stable Medical Necessity - Tobacco Use Smoking Status: Current every day smoker Meaningful Use Info Meaningful Use Diagnoses (Choose all that apply): None applicable Code Visit OBSV E&M: 27194 Observation care discharge
--- NOTE | 2018-05-13 11:05 | CASEMGMT ---
Patient is being discharged back to [facility] today. Called [facility] and let them know. CÉSAR also called [facility] and arranged for patient to get picked up at 1p via cot. CÉSAR notified patient's mom and supervisor in charge. Plan: Return to [facility] under intermediate level of care. [facility] Rub[facility] transported him via cot. Poonam DUCKWORTH MSW
[2018-05-13 11:15] VITALS: PULSE 100
--- NOTE | 2018-05-13 12:28 | PHA.DC.MR ---
Pharmacy Service has performed discharge medication reconciliation for this patient upon transfer to [facility]. The patient's discharge medication list was reviewed for discrepancies and discrepancies were resolved. Home Medications Docusate Sodium [Colace Clear] 50 mg PO DAILY 01/04/18 Gabapentin [Neurontin] 400 mg PO QHS 01/04/18 Gabapentin [Neurontin] 400 mg PO TID 01/04/18 Haloperidol Decanoate [Haldol Decanoate 50] 50 mg IM QWEEK 01/04/18 Hydroxyzine Pamoate [Vistaril] 50 mg PO TID PRN PRN 01/04/18 Magnesium Oxide [Mag-Ox 400] 400 mg PO BID 01/04/18 Metoprolol Tartrate 25 mg PO TID 01/04/18 Multivit-Min/Iron Fum/Folic AC [Kfoyy-Pukfwaf-Zeswbofx Tablet] 1 each PO DAILY 01/04/18 Paroxetine HCl [Paxil] 40 mg PO DAILY 01/04/18 Phenytoin Na [Dilantin] 200 mg PO BID 01/04/18 Quetiapine Fumarate [Seroquel] 100 mg PO DAILY 01/04/18 Sodium Bicarbonate 650 mg PO TID 01/04/18 Aspirin 81 mg PO DAILY 05/11/18
--- NOTE | 2018-05-13 13:30 | CASEMGMT ---
Pt is unable to sign PETER form. Call to pt's mother as she will not be coming to [facility] today and will be meeting pt [place] when he arrives there. This RN CM explained form to mother via phone, she voiced understanding, and verbally consents to PETER form at this time. Original to chart. SStaten MERRY SINCLAIR
--- OUTSIDE RECORDS SUMMARY | 2018-08-13 14:03 | XMS RPT_ITS ---
:1970 Author Organization [place] Care Team Providers Name Role Phone PAULA VALADEZ Admitting Unavailable DARLINE GREWAL) Consulting Unavailable VALERIE ORELLANA Attending Unavailable EVERARDO SARAH) Admitting Unavailable EVERARDO SARAH) Attending Unavailable JUANITO, SYMA Consulting Unavailable Ran, Dr. Colvin Attending Unavailable Ran, Dr. Colvin Attending Unavailable Ran, Dr. Colvin Attending Unavailable FRANCI FELICIANO (DO) Attending Unavailable DONN, ARTI C Referring Unavailable STOJICCURTIS Attending Unavailable DONN, ARTI C Referring Unavailable Patricia Hunter Attending Unavailable Juan David Lyons Primary Care Unavailable Juan David Lyons Primary Care Unavailable Leonardo Nieves Admitting Unavailable aMulik Carrillo Attending Unavailable Leonardo Nieves Admitting Unavailable AgjustingLeonardo Attending Unavailable Juan David Lyons Primary Care Unavailable Leonardo Nieves Consulting Unavailable Leonardo Nieves Admitting Unavailable Maulik Carrillo Attending Unavailable Juan David Lyons Primary Care Unavailable Maulik Carrillo Consulting Unavailable Leonardo Nieves Admitting Unavailable Maulik Carrillo Attending Unavailable Juan David Lyons Primary Care Unavailable Maulik Carrillo Consulting Unavailable CAROLIN JI Attending Unavailable VISWANATH, BASAVARAJAPPA Primary Care Unavailable OMAR LOPEZ Attending Unavailable CORONADO, ARTI Primary Care Unavailable CORONADO, ARTI Primary Care Unavailable SADAF PUENTES Attending Unavailable CORONADO, ARTI Primary Care Unavailable MAULIK ESCOBEDO Attending Unavailable CORONADO, ARTI Primary Care Unavailable JOHAN HERZOG Admitting Unavailable FRANCISCA RICO Attending Unavailable VISWANATH, BASAVARAMARYPPA Attending Unavailable VISWANATH, BASAVARAJAPPA Primary Care Unavailable PROBLEMS PROBLEMS DATE TYPE CONDITION / CODE ATTENDING STATUS SOURCE Final Essential [place] [address] diagnosis (primary) BASAVARAJAPPA Repository (discharge) hypertension / I10(ICD-9) Admitting Hyperlipidemia, [facility] 8 diagnosis unspecified / BASAVARAJAPPA Repository E78.5(ICD-9) [facility] / BASAVARAJAPPA Repository (discharge) E78.5(ICD-9) Admitting Essential [facility] 8 diagnosis (primary) BASAVARAJAPPA Repository hypertension / I10(ICD-9) Final Unspecified FRANCISCA RAN [facility] 8 diagnosis convulsions / Repository (discharge) R56.9(ICD-9) Final Prsnl hx of TIA FRANCISCA [facility] 8 diagnosis (TIA), and cereb Repository (discharge) infrc w/o resid deficits / Z86.73(ICD-9) Final Personal history FRANCISCA RAN [facility] 8 diagnosis of traumatic brain Repository (discharge) injury / Z87.820(ICD-9) Final Unspecified atrial FRANCISCA RAN [facility] 8 diagnosis fibrillation / Repository (discharge) I48.91(ICD-9) Final Presence of FRANCISCA RAN [facility] 8 diagnosis unspecified Repository (discharge) artificial hip joint / Z96.649(ICD-9) Admitting Altered mental FRANCISCA [facility] 8 diagnosis status, Repository unspecified / R41.82(ICD-9) [facility] with [facility] Repository (discharge) disturbance / F01.51(ICD-9) Final Restlessness and FRANCISCA RAN [facility] 8 diagnosis agitation / Repository (discharge) R45.1(ICD-9) Final Other impulse FRANCISCA RAN [facility] 8 diagnosis disorders / Repository (discharge) F63.89(ICD-9) Final Nicotine FRANCISCA RAN [facility] 8 diagnosis dependence, Repository (discharge) unspecified, uncomplicated / F17.200(ICD-9) Final Physical restraint FRANCISCA RAN [facility] 8 diagnosis status / Repository (discharge) Z78.1(ICD-9) Admitting [facility] / Repository F91.8(ICD-9) Admitting Urinary tract FRANCISCA RAN [place] [address] diagnosis infection, site Repository not specified / N39.0(ICD-9) Admitting Encounter for MAULIK ESCOBEDO [place] [address] diagnosis other general Repository examination / Z00.8(ICD-9) Final Hostility / BRANCH, MAULIK [place] [address] diagnosis R45.5(ICD-9) Repository (discharge) Final Tobacco use / BRANCH, MAULIK [place] [address] diagnosis Z72.0(ICD-9) Repository (discharge) Admitting Personal history BRANCH, MAULIK [place] [address] diagnosis of traumatic brain Repository injury / Z87.820(ICD-9) Admitting Prsnl hx of TIA BRANCH, [place] [address] diagnosis (TIA), and cereb Repository infrc w/o resid deficits / Z86.73(ICD-9) Active Unspecified severe SARAHEVERARDO Active [facility] 8 protein-calorie () Clinic Other malnutrition / [place] E43(ICD-10) Repository Active Nontraumatic [facility] 8 subarachnoid () Clinic Other hemorrhage, [place] unspecified / Repository I60.9(ICD-10) Active Secondary [facility] 8 hypertension, () Clinic Other unspecified / [place] I15.9(ICD-10) Repository Active Anuria and [facility] 8 oliguria / () Clinic Other R34(ICD-10) [place] Repository Active Alkalosis / [facility] 8 E87.3(ICD-10) (MD) Clinic Other [place] Repository Active Other disorders of [facility], [facility] 8 electrolyte and (MD) Clinic Other fluid balance, not [place] elsewhere Repository classified / E87.8(ICD-10) Active Hypokalemia / SARAH, [facility] 8 E87.6(ICD-10) () Clinic Other [place] Repository Admitting Encounter for exam PUENTES, DEEPPREET [facility] 8 diagnosis and observation Repository following oth accident / Z04.3(ICD-9) Final Nontraumatic SADAF PUENTES [facility] 8 diagnosis subarachnoid Repository (discharge) hemorrhage, unspecified / I60.9(ICD-9) Final Altered mental SADAF PUENTES [facility] 8 diagnosis status, Repository (discharge) unspecified / R41.82(ICD-9) Final Exposure to other [facility] 8 diagnosis specified factors, Repository (discharge) initial encounter / X58.XXXA(ICD-9) [facility] 8 diagnosis non-institut Repository (discharge) (private) residence as place / Y92.003(ICD-9) Admitting Contusion of [facility] 8 diagnosis unspecified part Repository of head, initial encounter / S00.93XA(ICD-9) Admitting Epilepsy, unsp, BEJ, OMAR D [facility] 8 diagnosis not intractable, Repository without status epilepticus / G40.909(ICD-9) Final Epilepsy, unsp, BEJ, OMAR D [facility] 8 diagnosis not intractable, Repository (discharge) without status epilepticus / G40.909(ICD-9) Admitting Occlusion and MARGY, NAIM Z [facility] 8 diagnosis stenosis of Repository bilateral carotid arteries / I65.23(ICD-9) Final Occlusion and MARGY, NAIM Z [facility] 8 diagnosis stenosis of Repository (discharge) bilateral carotid arteries / I65.23(ICD-9) Final Personal history MARGY, NAIM Z [facility] 8 diagnosis of nicotine Repository (discharge) dependence / Z87.891(ICD-9) Active Unspecified visual VALERIE ORELLANA [facility] 8 loss / M Clinic Other H54.7(ICD-10) [place] Repository Active Other visual VALERIE ORELLANA [facility] 8 disturbances / M Clinic Other H53.8(ICD-10) [place] Repository Active Nontraumatic VALERIE ORELLANA [facility] 8 subdural M Clinic Other hemorrhage, [place] unspecified / Repository I62.00(ICD-10) Active Epilepsy, VALERIE ORELLANA Active [facility] 8 unspecified, not M Clinic Other intractable, [place] without status Repository epilepticus / G40.909(ICD-10) Active Homonymous VALERIE ORELLANA Active [facility] 8 bilateral field [facility] Other defects, right [place] side / Repository H53.461(ICD-10) PROCEDURES PROCEDURES No Procedure Records FoundRESULTS RESULTS DISCHARGE SUMMARY Observed: 05/13/2018 Status: F Source: [place] 10:37 AM [facility] REPOSITORY [facility] Medical Records Department [address] [place] [address] Discharge Summary 05/13/18 1031 MR#: [id number] Acct: [id number] Name: JAYLENE RAM Rep #: [id number] : 1970 48 From: Maulik Carrillo MD PCP: Juan David Lyons Status: ADM AVIANSH Y Location: [place] [address] Discharge Date and Diagnosis - Problem List Patient Problems: Active and Suspected Problems (Last Updated 05/12/18 @ 01:45 by Leonardo Nieves MD) Dilantin toxicity (Acute) Date of Admission: 05/11/18 Date of Discharge: 05/13/18 - Primary Discharge Diagnosis Active and Suspected Problems (Last Updated 05/12/18 @ 01:45 by Leonardo Nieves MD) Dilantin toxicity (Acute) Hospital Course and Treatment Summary of Care Provided: Patient is a 48-year-old gentleman with history of subarachnoid hemorrhage with subsequent shunt, seizure disorder currently residing at an extended care facility brought to the emergency department with increasing lethargy decreased oral intake and urinary output for the day. Patient was found to have markedly elevated Dilantin level admitted to a monitored bed for further management 1. Acute Dilantin toxicity patient has been admitted to a monitored bed for continuous telemetry monitoring patient did improve clinically discharged back to his [facility] with reduced dose of Dilantin 2. History of subarachnoid hemorrhage with subsequent evacuation. 3. Seizure disorder did continue patient antiseizure medications except for Dilantin with plans to adjust doses on discharge 4. Hypokalemia corrected per protocol 5. Hypertension patient antihypertensives held on admission in view of patient markedly elevated Dilantin levels which can cause hypotension 6. Depression with anxiety patient is on SSRI 7. DVT prophylaxis SC heparin Patient Problems: Active and Suspected Problems (Last Updated 05/12/18 @ 01:45 by Leonardo Nieves MD) Dilantin toxicity (Acute) - Physical Exam General: Cooperative HEENT: Atraumatic Neck: Supple Lungs: Clear to auscultation Cardiovascular: Regular rate, Regular Rhythm Psych/Mental Status: Normal Affect Vital Signs Temp Pulse Resp BP Pulse Ox 98.3 F 87 16 124/84 H 99 05/13/18 08:40 05/13/18 08:40 05/13/18 08:40 05/13/18 08:40 05/13/18 08:40 Oxygen Delivery Method Room Air Weight: 53.3 kg Body Mass Index (BMI) 19.5 Intake and Output for Last 24 Hours Intake Total 1366 / 1366 Balance 1366 / 1366 Laboratory Tests Past 24 Hrs Phenytoin 38.3 H* 36.5 H* POC Glucose POC Glucose 85 106 109 Discharge Diet: No Restrictions Discharge Activity: May Not Drive Home Medications: Medications to take at Discharge Docusate Sodium [Colace Clear] 50 mg PO DAILY 01/04/18 Gabapentin [Neurontin] 400 mg PO QHS 01/04/18 Gabapentin [Neurontin] 400 mg PO TID 01/04/18 Haloperidol Decanoate [Haldol Decanoate 50] 50 mg IM QWEEK 01/04/18 Hydroxyzine Pamoate [Vistaril] 50 mg PO TID PRN PRN 01/04/18 Magnesium Oxide [Mag-Ox 400] 400 mg PO BID 01/04/18 Metoprolol Tartrate 25 mg PO TID 01/04/18 Multivit-Min/Iron Fum/Folic AC [Wdmgg-Kbgmnhp-Jpxwiufx Tablet] 1 each PO DAILY 01/04/18 Paroxetine HCl [Paxil] 40 mg PO DAILY 01/04/18 Phenytoin Na [Dilantin] 200 mg PO BID 01/04/18 Quetiapine Fumarate [Seroquel] 100 mg PO DAILY 01/04/18 Sodium Bicarbonate 650 mg PO TID 01/04/18 Aspirin 81 mg PO DAILY 05/11/18 Primary Care Physician: Juan David Lyons [Primary Care Provider] - Please follow up with your Primary Care Physician in: IN 1- 2 WEEKS Disposition: Asstd Living/Non-Skill NH Minutes spent on discharge:: 35 Patient Condition:: Stable Medical Necessity - Tobacco Use Smoking Status: Current every day smoker Meaningful Use Info Meaningful Use Diagnoses (Choose all that apply): None applicable Code Visit OBSV Ade MESSER M: [id number] Observation care discharge 05/13/18 1037 <Electronically signed by Maulik Carrillo MD> Date Maulik Carrillo MD Cosigner Signature (if applicable): Date CC: Maulik Carrillo MD; Juan David Lyons Signed PHENYTOIN (DILANTIN) Collected: 05/13/2018 Status: F Source: [place] LEVEL 8:45 AM [facility] REPOSITORY TYPE CODE TESTS RESULT OUT OF REFERENCE UNITS RANGE LAB L501.7700 10.0-20.0 mL High alert PHENYTOIN 36.5 Result Comment: Critical Result(s) Called at: 10:09:49 05/13/2018 by: Rebecca Aguilar Phenytoin concentrations greater than 30.0 ug/mL are potentially toxic. Performed By: #### L501.7700 #### Laboratory [address] [facility]. [place], [place], [id number] BEDSIDE GLUCOSE Collected: 05/13/2018 Status: F Source: [place] 6:27 AM [facility] REPOS[facility] TYPE CODE TESTS RESULT OUT OF RANGE REFERENCE UNITS LAB L501.080 70-110 mg/dL Normal BEDSIDE GLU 85 Result Comment: MANAGEMENT OF PATIENT CARE PER NURSING PROTOCOL Performed By: #### L501.080 #### Laboratory Point of Care [address] [facility]. [place], [place] [address] BEDSIDE GLUCOSE Collected: 05/12/2018 Status: F Source: [place] 9:32 PM [facility] REPOS[facility]ORY TYPE CODE TESTS RESULT OUT OF RANGE REFERENCE UNITS LAB L501.080 70-110 mg/dL Normal BEDSIDE GLU 106 Result Comment: MANAGEMENT OF PATIENT CARE PER NURSING PROTOCOL Performed By: #### L501.080 #### Laboratory Point of Care [address] [place] [address] BEDSIDE GLUCOSE Collected: 05/12/2018 Status: F Source: [place] 5:30 PM [facility] REPOS[facility] TYPE CODE TESTS RESULT OUT OF RANGE REFERENCE UNITS LAB L501.080 70-110 mg/dL Normal BEDSIDE GLU 109 Result Comment: MANAGEMENT OF PATIENT CARE PER NURSING PROTOCOL Performed By: #### L501.080 #### Laboratory Point of Care [address] [place] [address] TRANSFER TO [facility] Observed: 05/12/2018 Status: F Source: [place] CARE 11:51 AM [facility] RE[facility] Medical Records Department [address] [place] [address] Transfer to Extended Care MR#: [id number] Acct: [id number] Name: RAMJAYLENE Elisabeth Rep #: [id number] : 1970 48 From: Maulik Carrillo MD PCP: Juan David Lyons Status: ADM AVINASH LEANNAJAYLENE Barber [phone] (Patient) (Health Ins. Claim No.) (Day of Discharge to Facility) Certification of patient admission REQUIRED AT TIME OF ADMISSION. I CERTIFY THAT POST-HOSPITAL ECF SERVICES ARE REQUIRED TO BE GIVEN ON AN IN-PATIENT BASIS BECAUSE OF THE ABOVE NAMED PATIENT'S NEED FOR SKILLED NURSING CARE ON A CONTINUING BASIS FOR THE CONDITION(S) FOR WHICH HE/SHE WAS RECEIVING IN-PATIENT HOSPITAL SERVICES PRIOR TO HIS/HER TRANSFER TO THE F. 05/12/18 1151 <Electronically signed by Maulik Carrillo MD> Date Maulik Carrillo MD - Diet 05/12/18 00:34 Diet: Cardiac/Low Cholesterol Food consistency:: Regular Liquid Consistency:: Regular/Thin Is pt able to select menu?: No - Routine Orders/Code Status Code Status: DNRCC - Allergies/Procedures Done in Hospital Allergies/Adverse Reactions: Allergies No Known Allergies Allergy (Verified 05/11/18 20:30) - Type of Care/Length of Stay Estimated LOS: More Than 30 Days Type of Care Needed: Intermediate Rehab Potential: Poor Prognosis: Poor - Additional Orders/Day of Discharge Day of Discharge: 05/12/18 - Follow Up Care Primary Care Physician: Juan David Lyons [Primary Care Provider] - 05/12/18 1151 <Electronically signed by Maulik Carrillo MD> Date Maulik Carrillo MD CC: Juan David Lyons Signed PHENYTOIN (DILANTIN) Collected: 05/12/2018 Status: F Source: [place] LEVEL 11:32 AM [facility] REPOS[facility] TYPE CODE TESTS RESULT OUT OF REFERENCE UNITS RANGE LAB L501.7700 10.0-20.0 mL High alert PHENYTOIN 38.3 Result Comment: Critical Result(s) Called at: 12:40:06 05/12/2018 by: Rebecca Muniz Phenytoin concentrations greater than 30.0 ug/mL are potentially toxic. Performed By: #### L501.7700 #### Laboratory [address] [place], [address] BEDSIDE GLUCOSE Collected: 05/12/2018 Status: F Source: [place] 3:50 AM [facility] REPOSITORY TYPE CODE TESTS RESULT OUT OF RANGE REFERENCE UNITS LAB L501.080 70-110 mg/dL Normal BEDSIDE GLU 92 Result Comment: MANAGEMENT OF PATIENT CARE PER NURSING PROTOCOL Performed By: #### L501.080 #### Laboratory Point of Care [address] [place] [address] HISTORY AND PHYSICAL Observed: 05/12/2018 Status: F Source: [place] EXAM 2:11 AM [facility] RE[facility]ITORY [facility] Medical Records Department [address] [facility] [place] [address] History and Physical 05/11/18 2332 MR#: [id number] Acct: [id number] Name: JAYLENE RAM Rep #: [id number] : 1970 48 From: Leonardo Nieves MD PCP: Juan David Lyons Status: ADM IN Y Location: [place] [address] Problem List (1) Dilantin toxicity Status: Acute History of Present Illness Date of Admission: 05/11/18 Chief Complaint: Decreased oral intake and no urine output The patient is a 48 year old M who [facility] jail with a previous history hypertension; subarachnoid hemorrhage and brain surgery; seizure disorder who was sent from the extended care facility to the emergency department because of decreased oral intake and no urine output for 1 day. At emergency department patient was found to have high Dilantin level. His potassium level was 3.4 and his glucose was 61. His creatinine was 0.61. BUN over creatinine was 31.1. On papers from the jail his temperature was marked at 100.9; respiration of 8. However patient has been afebrile at the hospital. Past Medical History Medical History: Medical History (Last Updated 05/12/18 @ 01:45 by Leonardo Nieves MD) Seizure R56.9 HTN (hypertension) I10 Allergies No Known Allergies Allergy (Verified 05/11/18 20:30) Home Medications: Ambulatory Orders Medication Instructions Recorded Docusate Sodium [Colace Clear] 50 mg PO DAILY 01/04/18 Surgical History: - - Unable to obtain since patient is not nontalkative. However emergency department doctor reported history of brain surgery. Lives: [facility] Smoking Status: Current every day smoker - *Family History Maternal History Items: - - Unable to obtain from patient since he is non talkative Paternal History Items: - - Unable to obtain from patient since he is non talkative Review of Systems Unable to obtain accurate/complete ROS d/t: Unable to obtain from patient since he is non talkative VTE Information - Inpt Only VTE Present on Admission: No VTE Mechan Device Prophylaxis: None VTE Pharm Prophylaxis ordered?: Yes Patient Problems: Active and Suspected Problems (Last Updated 05/12/18 @ 01:45 by Leonardo Nieves MD) Dilantin toxicity (Acute) - Physical Exam General: Alert, - - Mom took her to HEENT: Atraumatic Neck: Supple, No JVD, Negative Carotid Bruits Lungs: Clear to auscultation, Normal air movement Cardiovascular: Regular rate, No murmurs Abdomen: Bowel Sounds Present, Soft, Non Tender Extremities: No edema, Capillary Refill Less than 3 Seconds Skin: - - Erythematous rash with yellowish surrounding discolorations. Musculoskeletal: No Tenderness to Palpation of Joints or Extremities Neurological: - - Patient is not following commands. Psych/Mental Status: Normal Affect Vital Signs Temp Pulse Resp BP Pulse Ox 98.2 F 70 16 127/85 H 95 05/11/18 20:35 05/11/18 22:22 05/11/18 22:22 05/11/18 22:22 05/11/18 22:22 Oxygen Delivery Method Room Air Weight: 58.6 kg Body Mass Index (BMI) 21.4 Laboratory Tests Past 24 Hrs WBC 10.8 RBC 4.42 L Hgb 13.2 Hct 40.1 MCV 90.7 MCH 29.9 WBC RBC Assessment/Plan All Active Problems (Last Updated 05/12/18 @ 01:45 by Leonardo Nieves MD) Dilantin toxicity (Acute) The patient is a 48 year old M who lives at a jail with a significant history of hypertension; subarachnoid hemorrhage; seizure disorder who was sent from the [facility] care facility to the emergency department because of decreased oral intake and no urine output for 1 day; and found to have elevated Dilantin level. Dilantin toxicity Notably patient was not noted to have any nystagmus; or unstable vitals. He is not grossly bradycardic or hypotensive. Hold Dilantin for now Placed on telemetry monitoring. Seizure precautions in place Dehydration His BUN is 19; while his creatinine is 0.61. His low creatinine is due to his poor muscle mass from probably lying down all the time. We will hydrate patient with dextrose with potassium especially as patient has mild hyperkalemia and hypoglycemia. Hypoglycemia Likely due to poor oral intake. Dextrose and potassium ordered. Accucheck Hypokalemia Likely due to poor intake Decrease potassium ordered. Seizure disorder Dilantin on hold at this time Cardiac precautions in place Continue gabapentin Hypertension Due to Dilantin toxicity which can cause hypotension although patient is not hypotensive at this time would hold metoprolol. With put patient on as needed labetalol. Elevated alkaline phosphatase level Review of medical records show that this is chronic Depression Paxil continued Tobacco abuse Counseled DVT prophylaxis Subcutaneous heparin Code Visit OBSV E AND M: [id number] Initial observation care L3 05/12/18 0211 <Electronically signed by Leonardo Nieves MD> Date Leonardo Nieves MD Cosigner Signature: Date (if applicable) CC: Leonardo Nieves MD; Juan David Lyons Signed BEDSIDE GLUCOSE Collected: 05/12/2018 Status: F Source: [place] 1:47 AM [facility] REPOSIT[facility] TYPE CODE TESTS RESULT OUT OF REFERENCE UNITS RANGE LAB L501.080 70-110 mg/dL Low BEDSIDE GLU 68 Result Comment: MANAGEMENT OF PATIENT CARE PER NURSING PROTOCOL Performed By: #### L501.080 #### Laboratory Point of Care [address] [facility] [place] [address] EMERGENCY DEPARTMENT Observed: 05/11/2018 Status: F Source: [place] SUMMARY 11:42 PM [facility] REPOSITORY [facility] Medical Records Department [address] [place] [address] Emergency Department Summary 05/11/182049 MR#: [id number] Acct: [id number] Name: JAYLENE RAM Rep #: [id number] : 1970 48 From: Rell Moody DO PCP: Juan David Lyons Status: REG ER - ER Visit Summary Date of Service: 05/11/18 Chief Complaint: Decreased oral intake and decreased urine output History of Present Illness: The patient is a 48 M who presents with decreased oral intake and decreased urine output per jail staff that began yesterday. Staff states the patient has not had any urine output since 0700 today. Staff reports that the patient has had decreased oral intake as well however, EMS states the patient was eating upon their arrival. Patient denies any fevers or chills. Patient denies any shortness of breath or chest pain. Patient denies any nausea or vomiting. Patient only answers yes/no questions and is a poor historian. Physical Examination: Vital signs are stable. Patient is afebrile. Patient is not tachycardic. Patient is in no acute distress. Oral mucosa is pink and somewhat dry. Neck is supple. Trachea is midline. There is no JVD noted. Heart was regular rate and rhythm. Lungs are clear but diminished bilaterally. There is adequate respiratory effort noted. Abdomen is soft. Bowel sounds are normal. There is no tenderness. There is no guarding noted. There is an erythematous macular rash to the face. There are no vesicles or crusting noted. There is no discharge or drainage. The rash is consistent with eczema. Patient is alert. Cranial nerves II through XII are intact. There are no focal motor or sensory deficits noted. Test Results: CBC was normal. Basic metabolic profile showed a mild hypokalemia at 3.4. Urinalysis did not show any evidence of urinary tract infection. PA and lateral chest x-ray does not show any acute cardiopulmonary process. Dilantin level was obtained and was elevated at 42.1. Emergency Department Course and Treatment: Patient was given an injection of Haldol. Patient became more cooperative after this. Case was discussed with the hospitalist. Patient will be admitted. Disposition: Admit to hospital Impression: Dilantin toxicity This note was generated with [employer] dictation software. It may contain incorrect words, spelling, and punctuation that were not noted in review of the chart prior to signing ED Disposition - Plan for ED Patient: Disposition: Acute Care Hospital [facility] Chief Complaint: General Illness Diagnosis: Dilantin toxicity Referrals: Juan David Lyons [Primary Care Provider] - What to do if you have Problems For any increased pain, shortness of breath, bleeding, nausea or vomiting, chest pain, or any unexpected problems, contact your Primary Care Provider. Call [employer] [facility] ([phone]) or report to the closest Emergency Room. Call 911 if necessary. 05/11/18 1533 <Electronically signed by Rell Moody DO> Date Rell Moody DO Cosigner Signature (If Indicated): Date CC: Juan David Lyons COMPREHENSIVE METABOLIC Collected: 05/11/2018 Status: F Source: [place] 10:12 PM [facility] REPOSITORY TYPE CODE TESTS RESULT OUT OF RANGE REFERENCE UNITS LAB L501.0100 74-106 mg/dL Low GLU 61 Result Comment: Please note revised GLUCOSE reference range effective 2017. LAB L501.1000 7-18 mg/dL High BUN 19 LAB L501.1100 0.70-1.30 mg/dL Low CREAT,SERUM 0.61 Result Comment: The validity of the calculated GFR AND GFRAA in patients over 70 years has not been determined. Clinical correlation is essential. LAB L501.1110 >60 mL/min Normal EST GFR 149 Result Comment: Non- GFR Calc LAB L501.1115 >60 mL/min Normal EST GFR - AA 180 Result Comment: GFR Calc LAB L501.1255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 LAB BILIT(LOINC) 0.0-1.2 mg/dL Bilirubin, Total 0.4 LAB ALP(LOINC) 45-117 U/L Alkaline High Phosphatase 161 LAB TP(LOINC) 6.4-8.2 g/dL Total Protein 7.0 LAB ALT(LOINC) 10-52 U/L ALT (SGPT) 35 LAB AST(LOINC) 13-39 U/L AST (SGOT) 25 Result Comment: MILD HEMOLYSIS DETECTED. The result may be falsely elevated due hemolysis or other interferents. Clinical correlation is recomm Repeat testing may be considered. LAB ANGAP(LOINC) 10-20 mmol/L Anion Gap 15 LAB AGRAT(LOINC) 0.9-2.4 A/G Ratio 1.4 LAB BCRAT(LOINC) 5-25 Urea/Creatini ne Ratio 19 Performed By: #### [id number] #### [facility] [address] [place] [address] HEAD/BRAIN W/O Observed: 12/14/2017 Status: F Source: [facility] CONTRAST 4:38 PM REPOSITORY DATE OF EXAM: Dec 14 2017 4:38PM CLINICAL HISTORY/ Patient Name: JAYLENE RAM STUDY: CT of the brain without contrast dated 12/14/2017. INDICATION: Altered mental status. History of stroke and aneurysm. COMPARISON: CT of the brain dated 11/25/2017 ACCESSION NUMBER(S): [id number] ORDERING CLINICIAN: CORINNE VERGARA TECHNIQUE: Axial noncontrast CT of the brain was performed. Sagittal and coronal 2 dimensional reformats were obtained. FINDINGS: BRAIN PARENCHYMA: No acute intracranial hemorrhage or infarction is evident. VENTRICLES AND EXTRA-AXIAL SPACES: There is prominent dilation of the ventricles which is similar to the prior exam. A component of this may be ex vacuo in nature. There is a subdural hematoma which is felt to be subacute to chronic in nature with evolution as compared to the previous examination. It is of similar size. INTRACRANIAL VESSELS: Calcified atheromatous disease is sseen of the visualized carotid and vertebrobasilar arterial trees. SINUSES AND MASTOIDS: The sinuses and mastoids are clear. OSSEOUS STRUCTURES: Surgical changes are seen of the calvarium. SOFT TISSUES: Visualized associated soft tissues are grossly unremarkable. CONCLUSION: IMPRESSION: 1. No acute intracranial hemorrhage or infarction is evident. 2. Similar appearance to prominent dilation of the ventricles. 3. Subacute to chronic subdural hematoma with evolution since the prior exam. 4. Continued monitoring is recommended. CBC WITH DIFFERENTIAL Collected: 12/12/2017 Status: F Source: [facility] 8:35 PM HEALTHCARE REPOSITORY TYPE CODE TESTS RESULT OUT OF REFERENCE UNITS RANGE LAB WBCIR(LOIN 4.2-11.0 10*3/uL C) WBC 10.4 LAB RBC(LOINC) 4.08-6.37 10*6/uL Low RBC 3.82 LAB HGB(LOINC) 12.8-17.7 g/dL Low HGB 12.3 LAB HCT(LOINC) 38.4-54.9 % Low HCT 36.7 LAB MCV(LOINC) 83.3-98.2 fL MCV 96.1 LAB MCH(LOINC) 27.5-32.9 pg MCH 32.2 LAB MCHC(LOINC 30.5-35.4 g/dL ) MCHC 33.5 LAB RDWCV(LOIN 12.0-15.4 % C) RDW CV 12.7 LAB RDWSD(LOIN 39.3-48.6 fL C) RDW SD 44.3 LAB PLTC(LOINC 155-404 10*3/uL ) Platelet Count High 545 LAB MPV(LOINC) 9.9-12.1 fL Low MPV 8.6 LAB NRBCR(LOIN /100{WBCs} C) NRBC Automated 0.0 LAB NRBCA(LOIN 10*3/uL C) NRBC Absolute 0.00 LAB ASEGR(LOIN 2.22-7.53 10*3/uL C) Neutrophils Absolute 6.65 LAB ALYMR(LOIN 0.40-2.84 10*3/uL C) Lymphocytes Absolute 2.78 LAB AMONR(LOIN 0.25-1.33 10*3/uL C) Monocytes Absolute 0.78 LAB AEOSR(LOIN 0.01-0.46 10*3/uL C) Eosinophils Absolute 0.12 LAB ABASR(LOIN 0.01-0.09 10*3/uL C) Basophils Absolute 0.06 LAB IGRA(LOINC % ) Immature Granulocytes 0.3 LAB IGR(LOINC) 0.00-0.21 10*3/uL Imm Grans Absolute 0.03 LAB SEGC(LOINC 46.2-79.1 % ) Neutrophils 63.7 LAB LYMPC(LOIN 9.4-41.1 % C) Lymphocytes 26.7 LAB MONOC(LOIN 3.0-16.2 % C) Monocytes 7.5 LAB EOSC(LOINC 0.0-6.7 % ) Eosinophils 1.2 LAB BASOC(LOIN 0.0-1.3 % C) Basophils 0.6 Performed By: #### [id number] #### [facility] [address] [place] [id number] BASIC METABOLIC PANEL Collected: 12/12/2017 Status: F Source: [facility] 8:35 PM REPOSITORY TYPE CODE TESTS RESULT OUT OF REFERENCE UNITS RANGE LAB GLU(LOINC) 70-100 mg/dL Glucose High 102 LAB UREA(LOINC 6-23 mg/dL ) Urea Nitrogen 11 LAB CREAT(LOIN 0.50-1.30 mg/dL C) Creatinine 0.52 LAB GFR(LOINC) Glomerular >60 Filtration Rate Result Comment: Interpretation for Chronic Kidney Disease: Stages 1&2 >60 Healthy or potential kidney damage. Mild decrease of GFR. Stage 3 30-59 Moderate decrease of GFR. Stage 4 15-29 Severe decrease of GFR. Stage 5 <15 Kidney failure or on dialysis. LAB SOD(LOINC) 136-145 mmol/L Sodium 137 LAB POT(LOINC) 3.5-5.1 mmol/L Potassium 4.7 LAB CHLOR(LOINC) 98-107 mmol/L Chloride 99 LAB BICAR(LOINC) 21-32 mmol/L Bicarbonate 30 LAB CA(LOINC) 8.6-10.3 mg/dL Calcium 9.1 LAB ANGAP(LOINC) 10-20 mmol/L Anion Gap 13 LAB BCRAT(LOINC) 5-25 Urea/Creatinine Ratio 21 Performed By: #### [id number] #### [facility] [address] [place] [address] PHENYTOIN Collected: 12/12/2017 Status: F Source: [facility] 8:35 PM REPOSITORY TYPE CODE TESTS RESULT OUT OF REFERENCE UNITS RANGE LAB PTN(LOINC) 10.0-20.0 ug/mL Low Phenytoin 2.6 Performed By: #### [id number] #### [facility] [address] [place] [address] ALCOHOL Collected: 12/12/2017 Status: F Source: [facility] 8:35 PM REPOSITORY TYPE CODE TESTS RESULT OUT OF REFERENCE UNITS RANGE LAB ALC(LOINC) <10 mg/dL Alcohol <10 Performed By: #### [id number] #### [facility] [address] [place] [address] HEPATIC FUNCTION Collected: 12/12/2017 Status: F Source: [facility] PANEL 8:35 PM REPOSITORY TYPE CODE TESTS RESULT OUT OF REFERENCE UNITS RANGE LAB TP(LOINC) 6.4-8.2 g/dL Low Total Protein 6.0 LAB ALB(LOINC) 3.4-5.0 g/dL Albumin 3.6 LAB BILIT(LOIN 0.0-1.2 mg/dL C) Bilirubin, Total 0.2 LAB BILID(LOIN 0.0-0.3 mg/dL C) Bilirubin, Direct 0.0 LAB AST(LOINC) 13-39 U/L AST (SGOT) 20 LAB ALT(LOINC) 10-52 U/L ALT (SGPT) 37 LAB ALP(LOINC) 45-117 U/L Alkaline High Phosphatase 135 LAB AGRAT(LOIN 0.9-2.4 C) A/G Ratio 1.5 Performed By: #### [id number] #### [facility] [address] [place] [address] MAGNESIUM Collected: 12/12/2017 Status: F Source: [facility] 8:35 PM REPOSITORY TYPE CODE TESTS RESULT OUT OF REFERENCE UNITS RANGE LAB MG(LOINC) 1.6-2.4 mg/dL Magnesium 2.0 Performed By: #### [id number] #### [facility] [address] [place] [address] URINALYSIS Collected: 12/12/2017 Status: F Source: [facility] 8:03 PM REPOSITORY TYPE CODE TESTS RESULT OUT OF RANGE REFERENCE UNITS LAB UCOLR(IDRIS NC) Color Yellow LAB UAPP(LOIN Clear C) Appearance Cloudy LAB USPG(LOIN 1.003-1.035 C) Specific Breaks 1.012 LAB UPH(LOINC 5.0-9.0 ) pH 7.0 LAB ULEU(LOIN Negative C) Leukocytes Abnormal Esterase Moderate LAB UNIT(LOIN Negative C) Nitrite Negative LAB UPRO(LOIN Negative mg/dL C) Protein Negative LAB UGLU(LOIN Negative mg/dL C) Glucose Negative LAB UKET(LOIN Negative mg/dL C) Ketones Negative LAB UURO(LOIN Negative mg/dL C) Urobilinogen <2.0 LAB UBIL(LOIN Negative C) Bilirubin Negative LAB UBLD(LOIN Negative C) Blood Negative LAB UASA(LOIN Negative mg/dL C) Ascorbic Acid Positive Result Comment: Presence of Ascorbic Acid may interfere with the detection of blood, glucose, nitrite, and bilirubin. LAB UWBC(LOINC) 0-5 /[HPF] WBC 22 LAB UBAC(LOINC) None /[HPF] Bacteria Rare LAB UMUCS(LOINC) None /[LPF] Mucous Rare LAB UAMOR(LOINC) None /[HPF] Amorphous Occasional Crystal LAB UMICP(LOINC) Automated Urine Performed Microscopy Performed By: #### [id number] #### [facility] [address] [place] [address] DRUGS OF ABUSE, Collected: 12/12/2017 Status: F Source: [facility] URINE(7) 8:03 PM REPOSITORY TYPE CODE TESTS RESULT OUT OF RANGE REFERENCE UNITS LAB UBAR1(LOIN C) Not Detected Barbiturate s, Urine LAB UBEN1(LOIN C) Abnormal Detected Benzodiazep jaylyn, Urine LAB UCOC1(LOIN C) Not Detected Cocaine, Urine LAB UOPI1(LOIN C) Not Detected Opiates, Urine LAB UAMP1(LOIN C) Not Detected Amphetamine s/Metamphet amines, Urine LAB UCAN1(LOIN C) Not Detected Cannabinoid s, Urine LAB UPCP1(LOIN C) PCP, Not Detected Urine Result Comment: Urine toxicology screen results are to be used for medical purposes only. It is recommended that any result reported as Detected be confirmed by a more specific alternative chemical method. Drug Analyzed Cutoff Concentration(ng/mL) Barbiturates 200 Benzodiazepines 200 Cocaine 150 Opiates 300 Amphetamines 500 Cannabinoids 50 Methadone 150 PCP 25 LAB UMET1(LOINC) Methadone, Not Urine Detected Performed By: #### [id number] #### [facility] [address] [place] [id number] PROGRESS Observed: 12/06/2017 Status: COMPLETED Source: [facility] 5:27 PM [facility] REPOSITORY HNO ID: [id number] Author: Namita Del Rosario Service: (none) Author Type: Nurse Practitioner Type: Progress Notes Filed: 12/07/2017 1:34 PM Note Text: Patient Name: Jaylene Ram Reason For Visit: Fpc Visit at [facility] for a follow up for New admission Past Medical Hx: 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 shunt 04/2011 - Seizure disorder (HCC) questionable, on phenytoin, none since 04/2011 - Subdural hematoma, acute (HCC) resolved from TBI - TBI (traumatic brain injury) (HCC) 03/2011 rt sided weakness, hx subarachnoid bleed Subjective Data: 47MRDD w chr med conditions, includes hydrocephalus w Previous [employer] shunt, admitted to after recent fall at home w CT showed bilateral hygromas and a small left-sided subarachnoid hemorrhage/ did not need surgical intervention, Admitted to [facility] for further Rx and rehab Hx of TBI, seizure and underlying MRDD/ current on dilantin, paxil and abilify R in bed, AANDo, calm AND relax and cooperative w exam at this time. Feeling fine. Denies any pain or discomfort. Ok w appetite. Sleep fine. Limited information Staff: No reports of or complaints of change in function or behaviors, chest pain or discomfort, palpitations, shortness of breath, cough or cold symptoms, change in bowel habit, abdominal pain, nausea or vomiting. No complaints of headaches, dizziness or lightheadedness. Denies dysuria or change in urinating habit. No fevers. Family/Social History: Unchanged, see HANDP. Medications: see current medication list in [facility] chart, reviewed (Medications in [facility] may not accurate, please see update in [facility] chart) ? Objective Data: BP 122/77 Pulse 74 Temp 36.8 ?C (98.2 ?F) Resp 18 Wt 43.8 kg (96 lb 8 oz) SpO2 95% BMI 15.58 kg/m? General: very cachectic/skeleton, Alert, no distress, comfortable Skin: warm dry intact. Neck: supple, no goiter, Chest: good resp effort, decreased breath sound Cardiac: normal S1S2, no murmur, no edema Abdomen: Soft scaphiod, non tender, +ve BS Extremities: Very thin at all limbs w muscle wasting, weak hands grasp Pulses: 2+radial, 2+dorsalis pedis Neuro: AANDoX 2/ MRDD Psy: calm AND relax at this time The reminder of the physical exam is noncontributory. Assessment/Plan: I have reviewed this patient's medications and treatment plan, as well as most recent labwork. ASSESSMENT/PLAN: 1. SAH (subarachnoid hemorrhage) (HCC) - ICD9: 430, ICD10: I60.9 (primary diagnosis) 2. Obstructive hydrocephalus - ICD9: 331.4, ICD10: G91.1 3. Severe protein-calorie malnutrition (HCC) - ICD9: 262, ICD10: E43 4. Essential hypertension - ICD9: 401.9, ICD10: I10 5. History of traumatic brain injury - ICD9: V15.52, ICD10: Z87.820 Cont' current meds regimen Monitor BW, VS, IANDO Observe clinical condition AND behavior Cont' therapy Discuss plan of care w staff I'll make no further changes at this time. We will continue to monitor for overall comfort, function and safety. Signature: Namita Del Rosario APRN.CNP Date: December 06, 2017 CNOV Observed: 12/06/2017 Status: COMPLETED Source: [facility] 12:00 AM [facility] REPOSITORY Office Visit (MARY) JAYLENE RAM ([id number]) 1970 M Date Time Provider Department 12/06/17 NAMITA DEL ROSARIO (EXPLOSIVE OPERATOR SUPERVISOR) MARY During your visit today, we recorded the following information about you: Temperature Pulse Respiration Blood pressure 98.2 degrees 74/minute 18/minute 122/77 Weight 43.8 kg Namita Del Rosario APRN.CNP 12/07/2017 1:34 PM Signed Patient Name: Jaylene Ram Reason For Visit: Fpc Visit at [facility] for a follow up for New admission Past Medical Hx: 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 shunt 04/2011 - Seizure disorder (HCC) questionable, on phenytoin, none since 04/2011 - Subdural hematoma, acute (HCC) resolved from TBI - TBI (traumatic brain injury) (HCC) 03/2011 rt sided weakness, hx subarachnoid bleed Subjective Data: 47MRDD w chr med conditions, includes hydrocephalus w Previous [employer] shunt, admitted to after recent fall at home w CT showed bilateral hygromas and a small left-sided subarachnoid hemorrhage/ did not need surgical intervention, Admitted to [facility] for further Rx and rehab Hx of TBI, seizure and underlying MRDD/ current on dilantin, paxil and abilify R in bed, AANDo, calm AND relax and cooperative w exam at this time. Feeling fine. Denies any pain or discomfort. Ok w appetite. Sleep fine. Limited information Staff: No reports of or complaints of change in function or behaviors, chest pain or discomfort, palpitations, shortness of breath, cough or cold symptoms, change in bowel habit, abdominal pain, nausea or vomiting. No complaints of headaches, dizziness or lightheadedness. Denies dysuria or change in urinating habit. No fevers. Family/Social History: Unchanged, see HANDP. Medications: see current medication list in [facility] chart, reviewed (Medications in [facility] may not accurate, please see update in [facility] chart) ? Objective Data: BP 122/77 Pulse 74 Temp 36.8 ?C (98.2 ?F) Resp 18 Wt 43.8 kg (96 lb 8 oz) SpO2 95% BMI 15.58 kg/m? General: very cachectic/skeleton, Alert, no distress, comfortable Skin: warm dry intact. Neck: supple, no goiter, Chest: good resp effort, decreased breath sound Cardiac: normal S1S2, no murmur, no edema Abdomen: Soft scaphiod, non tender, +ve BS Extremities: Very thin at all limbs w muscle wasting, weak hands grasp Pulses: 2+radial, 2+dorsalis pedis Neuro: AANDoX 2/ MRDD Psy: calm AND relax at this time The reminder of the physical exam is noncontributory. Assessment/Plan: I have reviewed this patient's medications and treatment plan, as well as most recent labwork. ASSESSMENT/PLAN: 1. SAH (subarachnoid hemorrhage) (HCC) - ICD9: 430, ICD10: I60.9 (primary diagnosis) 2. Obstructive hydrocephalus - ICD9: 331.4, ICD10: G91.1 3. Severe protein-calorie malnutrition (HCC) - ICD9: 262, ICD10: E43 4. Essential hypertension - ICD9: 401.9, ICD10: I10 5. History of traumatic brain injury - ICD9: V15.52, ICD10: Z87.820 Cont' current meds regimen Monitor BW, VS, IANDO Observe clinical condition AND behavior Cont' therapy Discuss plan of care w staff I'll make no further changes at this time. We will continue to monitor for overall comfort, function and safety. Signature: Namita Del Rosario APRN.EXPLOSIVE OPERATOR SUPERVISOR Date: December 06, 2017 Allergies As of Date: 12/06/2017 (No Known Allergies) Date Reviewed: 12/03/2017 Reviewed by: Yancy (Rn) DERIC Heredia - Fully Assessed Primary Visit Diagnosis:SAH (subarachnoid hemorrhage) (HCC) [I60.9] Other Visit Diagnoses:Obstructive hydrocephalus [G91.1] Severe protein-calorie malnutrition (HCC) [E43] Essential hypertension [I10] History of traumatic brain injury [Z87.820] Prescriptions as of 12/06/2017 Sig: B-COMPLEX WITH VITAMIN C TABL* TAKE 1 TABLET BY MOUTH EVERY * PAROXETINE 40 MG TABLET Take 1 tablet by mouth once d* ASPIRIN 81 MG TABLET,DELAYED * Take 1 tablet by mouth once d* VITAMIN C ORAL Take by mouth. VITAMIN D (WITH CALCIUM) ORAL Take by mouth. PHENYTOIN SODIUM EXTENDED 30 * Take 130 MG in the morning. PHENYTOIN SODIUM EXTENDED 100* Take 2 capsules by mouth piter* ASCORBATE CALCIUM 500 MG TABL* Take 1 tablet by mouth twice * Problem List As Of Date 12/06/2017 Noted Resolved HTN (hypertension) [I10] Obstructive hydrocephalus [G91.1] HT (hammer toe) [M20.40] INVALID FOR* Hallux valgus (acquired) [M20.10] INVALID FOR* Postop check [Z09] INVALID FOR* Gait disorder [R26.9] INVALID FOR* Ulcer of other part of foot [L97.509] INVALID FOR* Osteopenia [M85.80] INVALID FOR* More... Ulcer of toe of left foot (HCC) [L97.529] INVALID FOR*11/15/2015 Fixation hardware in foot [Z96.7] INVALID FOR* Seizure disorder (HCC) [G40.909] INVALID FOR* Ulcer of toe of right foot (HCC) [L97.519] INVALID FOR* Surgical follow-up care [Z09] INVALID FOR* Ingrown toenail [L60.0] INVALID FOR* Subdural hematoma (HCC) [S06.5X9A] INVALID FOR*07/17/2017 Shunt malfunction [T85.618A] INVALID FOR* Blurry vision, left eye [H53.8] INVALID FOR* Vision loss [H54.7] INVALID FOR* TBI (traumatic brain injury) ([facility]) [S06.9X9A] INVALID FOR* SAH (subarachnoid hemorrhage) ([facility]) [I60.9] INVALID FOR* Severe protein-calorie malnutrition (HCC) [E43] INVALID FOR* Essential hypertension [I10] INVALID FOR* Mental retardation [F79] INVALID FOR* History of traumatic brain injury [Z87.820] INVALID FOR* Encounter Status:Closed by NAMITA DEL ROSARIO CNP on 12/07/17 PROGRESS Observed: 12/04/2017 Status: COMPLETED Source: [facility] 11:55 AM [facility] REPOSITORY O ID: [id number] Author: Luis Carlos Lake Ma Service: (none) Author Type: (none) Type: Progress Notes Filed: 12/30/2017 11:39 AM Note Text: TRANSITION CARE MANAGEMENT (TCM) INITIAL CONTACT Provider Action/FYI: Attempted to reach pt, Left message for pt to call office. 1st Attempted. [facility] Initial contact with patient post discharge, spoke to . Patient identified by name and . SUMMARY: -Pt discharged from [facility] on 12/03/17. -Follow up appointment on . -Medication review done . -Admitted for: Subarachnoid Hemorrhage CONCERNS: NEW MEDICATIONS: N/A MEDS HELD/DISCONTINUED: N/A BRIEF HOSPITAL COURSE: pt is 47 yo male with past med hx significant for MRDD with shunt placements, (recent removal) known to [facility] dept. who fell out of bed this am. Pt reported by family to have had very poor appetitie lately. Pt originally went to [facility] and had CT scan which revealed known clif hygromas and a amll Left sided SAH. Pt was a transfer to ED as a trauma 2.alert. Upon review of imaging pt found to appear to have elevation WBC and abnormal, K . Went to Nsgy in [place] (Dr. Smith) to inspect out side CT scan.He is familiar with this patient. no need for neurosurgical intervention. will plan for admission to SICU with medicine on consult to manage many electrolyte issues. Getting sepsis workup. dalton placed at bedside iN ED. 2:51 PM upon revisiting pt in ED , pt has become more somnelent , opens eyes and follows commands.Now GCS score of 10 . ?appears sleepy, and not vocalizing as he was on arrival. Will plan to assess in ICU setting overnight PROGRESS Observed: 12/04/2017 Status: COMPLETED Source: [facility] 12:00 AM [facility] REPOSITORY HNO ID: [id number] Author: Beau Cordova Service: (none) Author Type: Physician Type: Progress Notes Filed: 12/06/2017 10:17 AM Note Text: [facility] SKILLED NURSING NOTE NAME: JAYLENE RAM [facility] NO.: [id number] DATE OF SERVICE: 12/04/2017 [facility] DATE OF : 1970 History and Physical He is in [place] [address]. He is at [place], [place]. The patient is a 47-year-old male transferred here from the [facility] last evening. The patient has a longstanding history of mental retardation and has had hydrocephalus of the brain. He has been followed by the [facility] Neurosurgery Department and recently had a shunt removed from his head. He fell out of bed recently and struck his head. The patient was taken to [facility]. CAT scan showed bilateral hygromas and a small left-sided subarachnoid hemorrhage. He was then transferred to [facility] as a trauma 2. He did have an elevated white blood count. He was seen by Neurosurgery. They felt that he did not need surgical intervention, was placed in the surgical ICU for observation. He had a sepsis workup. He was seen by Infectious Disease, felt that he did not have any signs of overt sepsis and antibiotics were stopped. He did have a right temporal contusion, a right shoulder abrasion, and a small subarachnoid hemorrhage. The patient was treated with IV fluids. He was seen by Neurology and Psychiatry. Some minor medication arrangements made and he is now sent here for physical and occupational therapy. It is not clear whether he will be able to go home or not. Apparently he was living with family members. It is not possible to get any history from the patient and staff this morning. When I walked in the room he was just being evaluated by PT. The patient is very aggressive and very antagonistic. He refused to talk to me except to use expletive-laden phrases describing all healthcare workers, hospitals, etc. The patient would not cooperate with an interview or examination to any great degree. He apparently has been sitting up to the nurse's stations. Has been seeing things and having some visual hallucinations at times and he was becoming very upset with his wheelchair. His previous medical history does show paroxysmal atrial fibrillation, hypertension, and obstructive hydrocephalus. He has had a HOME VISITOR HOME BASE HEAD START shunt, possible seizure disorder. He has had a subdural hematoma, a traumatic brain injury, and right-sided weakness. He had a previous subarachnoid bleed in 2010 and now just a recent one. There is an underlying element of mental retardation. Past surgical history has been the HOME VISITOR HOME BASE HEAD START shunt. He has had a prior tracheostomy and PEG tube. He has had a total left hip replacement on the left. He is single and apparently has no children that the hospital is aware of. Has a 20-year smoking history of a pack of cigarettes per day. He has not had alcohol apparently for 5 to 6 months, but has had a history of alcohol consumption. The patient has no known allergies to medications. The patient's family history is noncontributory. I did watch him work with the PT people for several minutes. They had him out in the hallway. He intermittently would pay attention to them and cooperate a little bit and then suddenly would refuse to do anything and would not assist them at all. However, he was calming down and perhaps he is getting more used to being here. The patient's medications are reviewed and his orders are signed. The patient is on a regular texture thin liquid diet. He will be following up with Dr. Smith in 3 to 4 weeks with [facility]. He is a full code. He is on Abilify 2 mg twice a day, Dilantin 100 mg once daily and 30 mg once a day. He is on heparin sodium 5000 units every 12 hours, which we will stop in 5 days, Mag-Ox 400 mg a day, metoprolol 25 mg every 8 hours, Neurontin 300 mg t.i.d., Neurontin 400 mg at bedtime, nicotine patch for smoking cessation, we will stop that in 2 weeks 7 mg per day, Paxil 40 mg a day, and sodium bicarbonate 650 mg once a day. He is on vitamin B12. The patient's admitting blood work showed a creatinine of 0.44, white count 18,000, hemoglobin 14.1, INR of 1.1, and normal liver function tests. His examination shows him to be 5 feet 6. He is listed as 101 pounds. Blood pressure is 108/88, pulse rate this morning was 78 and regular. He is a very cachectic male who looks much older than his stated age. He would not make any eye contact with me, kept turning away and looking at his feet; however, I would I could not get a good look at his eyes. The patient's throat appears to be thin. He has no carotid bruits. Very decreased breath sounds. Heart examination shows a regular rate and rhythm with no systolic or diastolic murmurs. No gallop rhythms. Scaphoid abdomen. Very thin arms and legs with marked muscle wasting. His voice is difficult to understand and he speaks with a very loud, harsh voice. ASSESSMENT: 1. Subarachnoid hemorrhage secondary to a fall. 2. Mental retardation baseline. 3. Hydrocephalus obstructive type. 4. Significant malnutrition. 5. Hypertension. 6. History of traumatic brain injury. The plan is supportive care. PT is trying to work with him. It is not clear if they are making a great deal of progress, but at least he is beginning to cooperate a little bit. We will see how he progresses over the next few days. DICTATED BY: MD ELLA Pierce/Cecilia JOB# [id number] cc:Leosuzanne Briggs ETOUTRWOLFGANGCH Observed: 12/04/2017 Status: COMPLETED Source: [place] 12:00 AM [facility] REPOSITORY Patient Outreach (INTMNR) JAYLENE RAM ([id number]) 1970 M Date Time Provider Department 12/04/17 ARTI ACOSTA INTMNR During your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 admission? No HANDOFF COMMUNICATION: RN to RN report TRANSPORTATION ARRANGEMENTS: Mode of Transportation: Ambulance Transportation Agency and Phone #: Hector Lagunas [phone] . Date of Trip: 12/03/17 Type of Service: BLS Non-emergency Is Patient Medicaid Pending: No Discussion of financial coverage occurred with mother Dot . Security Police Officer Location: [place] [address] Destination: [facility] Financial Care Management Responsibility: TBD ADDITIONAL CONTACT RESOURCES: na Discharge Information Row Name ED to Hosp-Admission (Current) from 11/25/2017 in [facility] Transportation Agency Hector Huston Transport Arranged To: [facility] Facility Agency [place], [place] Needs Prior to Discharge: Ready for Discharge Patient has been medically cleared for discharge to [facility] today. TCC called patient's mother, Dot and gave her the facility demographics and transport arrangements, she is in agreement to plan. Hector Huston bulk picker scheduled for 12:30pm. TCC spoke to bedside nurse and gave her the arrangement plan. Discharge packet and report phone number given to bedside nurse. SIGNATURE: Patricia Gaxiola, RN,BSN PATIENT NAME: Jaylene Ram DATE: December 03, 2017 TIME: 8:47 AM PAGER/CONTACT PROGRESS Observed: 12/03/2017 Status: COMPLETED Source: [place] 8:18 AM [facility] OTHER CAMPUS REPOSITORY HNO ID: [id number] Author: Troy Arce [facility] Service: Trauma Author Type: Nurse Practitioner Type: Progress Notes Filed: 12/03/2017 10:17 AM Note Text: TRAUMA PROGRESS NOTE SERVICE DATE: 12/03/2017 SERVICE TIME: 8:18 AM Subjective HISTORY (LAST 24 HOURS): pt is 47 yo male with past med hx significant for MRDD with shunt placements, (recent removal) known to [facility] dept. who fell out of bed this am. Pt reported by family to have had very poor appetitie lately. Pt originally went to [facility] and had CT scan which revealed known clif hygromas and a amll Left sided SAH. Pt was a transfer to ED as a trauma 2.alert. Upon review of imaging pt found to appear to have elevation WBC and abnormal, K . Went to [place] (Dr. Smith) to inspect out side CT scan.He is familiar with this patient. no need for neurosurgical intervention. will plan for admission to SICU with medicine on consult to manage many electrolyte issues. Getting sepsis workup. dalton placed at bedside iN ED. 2:51 PM upon revisiting pt in ED , pt has become more somnelent , opens eyes and follows commands.Now GCS score of 10 . ?appears sleepy, and not vocalizing as he was on arrival. Will plan to assess in ICU setting overnight ? 11/26/17 Pt seen this am sleeping in bed. He was very difficult to arouse and nurse said he was the same this earlier this am. When he was woken up he did not have any complaints. DEBBYGY is on board to see him. reapeat CT scan show stable intracranial hemorrhage. Transfer To [facility] Once cleared by NSGY ? 11/27/17 Pt is awake and lying in bed this morning. Was transferred to regular nursing floor. Pt is stable. ?Patient was talkative, but unable to be understood this morning. Being seen by Neurosurgery,no acute surgical intervention with final recs pending. ? November 28, 2017?pt seen this am, will answer simple questions, reported to have been violent striking, spitting on staff at times. this has been endorsed by pt mother who cares for him at home. Given concern for mother (elderly, frail) and violent outbursts will need case management ?to intervene if home enviroment is safe for pt and family. Severe protein malnutrition, pt not eating here as well as reported refusal to eat at home. Nutrition on consult, will place medical consult to assist with optimization of labs, medical management. psych consult to be placed as well. blood cx negative ? November 29, 2017 pt seen this am sleeping, at times, combative. psych is on. will keep K above 4 and mag above 2 per recs. Pt is medically cleared for discharge to SNF ? November 30, 2017 Pt seen this am after having 3 episodes of emesis and temp of 99.4. When asked why he thinks he is vomiting he states that he is not getting sick and became combative and threatening during examination. Pt was able to converse and threaten others. Minimal concern for exacerbation of SAH as source for N/V. Will order zofran and scopolamine patch for nausea. He has no other complaints. ? December 01, 2017 Pt has no new complaints. He states he has not vomited since yesterday and does not feel nauseous today. He had a tmax of 100.0 oral yesterday. Has no had an increase in WBC from 9.98 to 18.55. Will begin work up for source of infection starting with CXR and UA. ? December 02, 2017 pt evaluated, no overnight events, spoke to ID re pt persistent Leukocytosis, no immediate concerns, noted may be chronic issue. reported 1 episode pof low grade temp overnight 38.1. asymptomatic, staright cath for urinalysis and blood cx ordered, lung sounds clear throughtout. will plan for discharge. December 03, 2017 seen by ID. no need for concern for leukocytosis, may f/u with PCP for worrkup after D/C ,. treating leuk and nitrate pos UTI. Pt able to be D/C to SNF today. Afebrile overnight. medically cleared for discharge. PERTINENT ROS: GENERAL: No weight loss, malaise or fevers HEENT: Negative for frequent or significant headaches, No changes in hearing or vision, no nose bleeds or other nasal problems RESPIRATORY: Negative for cough, hemoptysis, wheezing, COPD, dyspnea or shortness of breath CARDIOVASCULAR: Negative for chest pain, leg swelling, hypertension, CHF or palpitations GI: No nausea, vomiting, or diarrhea : No history of dysuria, frequency or incontinence MUSCULOSKELETAL: Negative for joint pain or swelling, back pain or muscle pain NEURO: No history of headaches, syncope, paralysis, seizures or tremors Current hospital medications: sodium bicarbonate 650 mg tab(s) 650 mg ORAL TID ondansetron (PF) 4 mg injection (ZOFRAN) 4 mg INTRAVENOUS q 6 H PRN scopolamine 1 mg over 3 days 1 Patch (TRANSDERM-SCOP) 1 Patch TRANSDERMAL q 72 HR scopolamine - REMOVE PATCH OTHER q 72 HR scopolamine - VERIFY patch OTHER q 8 H acetaminophen 650 mg tab(s) (TYLENOL) 650 mg ORAL q 4 H PRN heparin 5,000 Units injection 5,000 Units SUBCUTANEOUS q 12 H nicotine 7 mg/24 hr 1 Patch (NICODERM) 1 Patch TRANSDERMAL DAILY nicotine -- REMOVE patch OTHER DAILY nicotine - verify patch OTHER q 8 H magnesium oxide 400 mg tab(s) (MAG-OX) 400 mg ORAL BID cyanocobalamin 1,000 mcg (VITAMIN B-12) 1,000 mcg ORAL DAILY ARIPiprazole 2 mg tablet (ABILIFY) 2 mg ORAL BID 9a/4p gabapentin 200 mg cap(s) (NEURONTIN) 200 mg ORAL TID 9a/1p/5p gabapentin 300 mg cap(s) (NEURONTIN) 300 mg ORAL AT BEDTIME gabapentin 400 mg cap(s) (NEURONTIN) 400 mg ORAL HS PRN gabapentin 300 mg cap(s) (NEURONTIN) 300 mg ORAL TID PRN gabapentin 300 mg cap(s) (NEURONTIN) 300 mg ORAL TID PRN LORazepam 0.5 mg injection (ATIVAN) 0.5 mg INTRAVENOUS TID PRN labetalol 5-10 mg injection (NORMODYNE) 5-10 mg INTRAVENOUS q 2 H PRN metoprolol tartrate (short acting) 25 mg tab(s) (LOPRESSOR) 25 mg ORAL q 8 H phenytoin ER (DILANTIN) cap(s) 130 mg 130 mg ORAL DAILY (8 AM) phenytoin ER 200 mg cap(s) (DILANTIN) 200 mg ORAL AT BEDTIME PARoxetine 40 mg tab(s) (PAXIL) 40 mg ORAL DAILY docusate sodium 100 mg cap(s) (COLACE) 100 mg ORAL BID Objective ASSESSMENT: BP 151/85 Pulse 85 Temp (Src) 99 (Temporal Artery) Resp 18 Ht 5' 5.984 (1.68m) Wt 101 lb 6.6 oz (46.0kg) SpO2 98% BMI 16.38 kg/(m2). Genl: ?Appears age appropriate. ?No acute distress. ?Resting comfortably. Head/Face: Normocephalic. ?Atraumatic. Post cranial surgery scars Eyes: ??EOMI. ?Sclera not icteric ENMT: ?TMs clear. ?External auditory canals clear. ?Oropharynx is clear. ?Nasopharynx is clear. Neck: ?C-spine non-tender. Back: ?T AND?L Spine non-tender, no step-offs noted. ?No flank tenderness. Chest:???Breathing is non-labored. GI: ?Abdomen is soft, non-tender, not distended. ?Bowel sounds normal. ?No peritonitis. MSK: ?Extremities without clubbing, cyanosis, edema. ?Normal ROM x 4. Skin: ?Warm and dry. ?No lesions of concern. ?Not jaundiced. ?No abrasions/contusions. Neuro: AANDOx3. ?Baseline RUE deficit. ?No cerebellar signs Psych: Talkative but difficult to understand this morning. DATA: CXR: Labs: Recent Labs 12/03/17 0717 12/01/17 0543 WBC 30.33* 18.55* HB 13.4 12.9* HCT 39.0 37.8* PLT 533* 490* NA -- 133* K -- 4.5 CHLOR -- 95* CO2 -- 27 CREAT -- 0.39* P -- 3.6 BUN -- 8* GLUC -- 99 MG -- 2.1 CA -- 8.8 Assessment/Plan ACTIVE PROBLEM LIST Htn (Hypertension) Obstructive Hydrocephalus Ht (Hammer Toe) Hallux Valgus (Acquired) Postop Check Gait Disorder Ulcer of Other Part of Foot Osteopenia Fixation Hardware in Foot Seizure Disorder (Hcc) Ulcer of Toe of Right Foot (Hcc) Surgical Follow-Up Care Ingrown Toenail Shunt Malfunction Blurry Vision, Left Eye Vision Loss Tbi (Traumatic Brain Injury) (Hcc) Sah (Subarachnoid Hemorrhage) (Hcc) Severe Protein-Calorie Malnutrition (Hcc) Medication and Non-Pharmacologic VTE Prophylaxis/Anticoagulants Anticoagulant AND Antiplatelet Medications Start Dose Route Frequency Ordered Stop 11/29/17 0900 heparin 5,000 Units injection 5,000 Units SUBCUTANEOUS EVERY 12 HOURS 11/29/17 0845 -- 11/26/17 1030 activity - mobilize patient (vt,md) 11/25/17 1600 vte pharmacologic prophylaxis contraindicated (vt,md) 11/25/17 1600 pneumatic compression stockings ([place]) 11/25/17 1600 activity - mobilize patient ([place]) VTE Prophylaxis: VTE prophylaxis appropriate Right temporal contusion Right shoulder abrasion Small left SAH- stable on repeat CT 11/26 Neurosurgery consult- no acute surgical intervention severe protein calorie malnutrition nutrition consult speech language consult- dysphagia level 2 , thin liquids will attempt to get modified barium swallow violent out bursts have been norm at home enviroment lately- escalation recent psych consult Keep K above 4.0 and Mag above 2.0 per psych Pt, ot, Case management - SNF Needs pre cert UTi hospital aquired then plan for dispo start Cipro for leuk, nitrate pos UTI for 7 days Medically cleared for discharge SIGNATURE: Troy Durán APRN.CNP PATIENT NAME: Jaylene Ram DATE: December 03, 2017 TIME: 8:18 AM PAGER/CONTACT #: [phone] cell BASIC METABOLIC PANL Collected: 12/03/2017 Status: F Source: [place] 7:17 AM CLINIC OTHER CAMPUS REPOSITORY TYPE CODE TESTS RESULT OUT OF REFERENCE UNITS RANGE LAB GLU 65-100 mg/dL Glucose High 108 LAB BUN 10-25 mg/dL Low BUN 8 LAB CRET 0.70-1.40 mg/dL Low Creatinine 0.43 LAB NA 135-146 mmol/L Sodium 135 LAB K 3.5-5.0 mmol/L Potassium 4.8 LAB CL 98-110 mmol/L Low Chloride 93 LAB CO2 23-32 mmol/L CO2 28 LAB AGAP 9-18 mmol/L Anion Gap 14 LAB CA 8.5-10.5 mg/dL Calcium, Total 9.0 LAB GFRAA >60 eGFR- >60 Amer. LAB GFRNAA >60 . eGFR-All Other Races >60 Performed By: #### BMP, CBCDIF #### [place] [id number] [place] [address] CBC AND DIFFERENTIAL Collected: 12/03/2017 Status: F Source: [place] 7:17 AM [facility]IN[facility] OTHER CAMPUS REPOSITORY TYPE CODE TESTS RESULT OUT OF REFERENCE UNITS RANGE LAB WBC 3.70-11.00 k/uL WBC High 30.33 LAB RBC 4.20-6.00 m/uL RBC 4.20 LAB HGB 13.0-17.0 g/dL Hemoglobin 13.4 LAB HCT 39.0-51.0 % Hematocrit 39.0 LAB MCV 80.0-100.0 fL MCV 92.9 LAB MCH 26.0-34.0 pG MCH 31.9 LAB MCHC 30.5-36.0 g/dL MCHC 34.4 LAB RDWCV 11.5-15.0 % RDW-CV 13.1 LAB PLTCT 150-400 k/uL Platelet High Count 533 LAB MPV 9.0-12.7 fL MPV 9.2 LAB NEUTS % Neut% 81.0 LAB AANEUT 1.45-7.50 k/uL Abs Neut High 24.57 LAB LYMPHS % Lymph% 3.0 LAB AALYMP 1.00-4.00 k/uL Abs Low Lymph 0.91 LAB MONOS % [place]% 15.0 LAB AAMONO <0.87 k/uL Abs [place] High 4.55 LAB EOS % Eosin% 0.0 LAB AAEOS <0.46 k/uL Abs Eosin 0.00 LAB BASOS % Baso% 0.0 LAB AABASO <0.11 k/uL Abs Baso 0.00 LAB ABIMMG k/uL ANC(includeSEG+B 24.57 AND) LAB META % [place]% 1.0 LAB RBCMOR Red Cell Morph SEE COMMENT Result Comment: Unremarkable LAB PLTEST Platelet Platelet Estimate estimate increased LAB DTYP DTYPE Manual Diff Performed By: #### BMP, CBCDIF #### [place] [id number] [place] [address] CONSULT PROG Observed: 12/02/2017 Status: COMPLETED Source: [place] 6:01 PM [facility] OTHER [facility]AMPUS REPOSITORY HNO ID: [id number] Author: Gautam Acevedo V Service: Infectious Disease Author Type: Physician Type: Consult Progress Note Filed: 12/02/2017 6:27 PM Note Text: INFECTIOUS DISEASE CONSULT PROGRESS NOTE SERVICE DATE: 12/02/2017 SUBJECTIVE: INTERVAL HISTORY: There is no apparent change in the patient's clinical picture, the patient is a poor historian, does not agree for physical exam, but his vitals are normal, and seems to be at his baseline. White cell counts went up again today. MEDICATIONS: reviewed ABX: None OBJECTIVE: PHYSICAL EXAM: Vital Signs: AF/VSS. Constitutional: awake and alert. comfortable. NAD DATA: Micro: BCx negative. ASSESSMENT: This is a 47-year-old, with pulse medical history of traumatic brain bleeding, complicated with hydrocephalus, and developmental delay. Admitted with new small subarachnoid hemorrhage. ID was consulted because he had a white cell count that was high, but no fever, and clinically he appeared at his baseline. The white cell count went down without antibiotic therapy. And today went up again. With no change in the clinical picture. It is unlikely that the new hypodense area in the CT scan represents an infected fluid, because the patient appears asymptomatic. Plan: 1. Unexplained leukocytosis: - No need to start antibiotics. There is no apparent signs or symptoms of infection. - Patient can go home from ID standpoint of view, he will need to follow-up with his PCP for further workup for this and explained high white cell counts. Plan was discussed with Dr. Gallo. SIGNATURE: Cass Tyson MD PATIENT NAME: Jaylene Ram DATE: December 02, 2017 TIME: 6:01 PM PAGER/CONTACT #: [phone] I have gone over pertinent lab data and X ray findings. Rebollar elements confirmed.Plan as outlined by resident. Gautam Acevedo MD 12/02/2017 PROGRESS Observed: 12/02/2017 Status: COMPLETED Source: [place] 3:39 PM [facility] OTHER CAMPUS REPOSITORY HNO ID: [id number] Author: Troy Arce (Grocery Carrier) Luis Armando Service: Trauma Author Type: Nurse Practitioner Type: Progress Notes Filed: 12/02/2017 3:40 PM Note Text: 3:39 PM/ Urinalysis returned with leuk and nitrate pos UTI., will start PO cipro today . Troy Durán, BENCH ASSEMBLER OPERATOR.[facility] Results for JAYLENE RAM ( ) as of 12/02/2017 15:39 Ref. Range 12/02/2017 09:40 Color Latest Ref Range: Yellow Yellow Clarity Latest Ref Range: Clear Cloudy (A) Specific Breaks, Ur Latest Ref Range: 1.005 - 1.030 1.019 pH, Urine Latest Ref Range: 5.0 - 8.0 8.0 Protein, Urine Latest Ref Range: Negative mg/dL 30 (A) Glucose, Urine Latest Ref Range: Negative mg/dL Negative Ketones, Urine Latest Ref Range: Negative Negative Bilirubin, Urine Latest Ref Range: Negative Negative Hemoglobin/Blood,Ur Latest Ref Range: Negative Negative Urobilinogen Latest Ref Range: <2.0 <2.0 Leukest Latest Ref Range: Negative Trace (A) Nitrites Latest Ref Range: Negative Positive (A) WBC, Urine Latest Ref Range: Negative /HPF 5-10 (A) RBC, Urine Latest Ref Range: Negative /HPF 0-5 (A) Bacteria Latest Ref Range: Negative /HPF Rare (A) Crystal Latest Ref Range: 0 /HPF SEE COMMENT (A) CASE MANAGEM Observed: 12/02/2017 Status: COMPLETED Source: [place] 1:38 PM [facility] OTHER CAMPUS REPOSITORY HNO ID: [id number] Author: Thea Patel ADM Service: (none) Author Type: (none) Type: Care Mgt Progress Note Filed: 12/02/2017 1:38 PM Note Text: CARE MANAGEMENT PROGRESS NOTE SERVICE DATE: 12/02/2017 SERVICE TIME: 1:37pm LOS: 7 days IM letter given to patient on 12-02-17. SIGNATURE: Thea Patel ADM PATIENT NAME: Jaylene Ram DATE: December 02, 2017 TIME: 1:38 PM PAGER/CONTACT #: [phone] CASE MANAGEM Observed: 12/02/2017 Status: COMPLETED Source: [place] 10:08 AM [facility] OTHER CAMPUS REPOSITORY HNO ID: [id number] Author: Keisha (Deric) DERIC Bautista Service: Care Management Author Type: Registered Nurse Type: Care Mgt Progress Note Filed: 12/02/2017 10:09 AM Note Text: CARE MANAGEMENT PROGRESS NOTE SERVICE DATE: 12/02/2017 SERVICE TIME: 10:08 AM LOS: 7 days Updates sent to [facility] to obtain precert. SIGNATURE: Keisha Bautista RN,BSN, ACM PATIENT NAME: Jaylene Ram DATE: December 02, 2017 TIME: 10:08 AM PAGER/CONTACT #: [phone] URINALYSIS Collected: 12/02/2017 Status: F Source: [place] 9:40 AM [facility] OTHER CAMPUS REPOSITORY TYPE CODE TESTS RESULT OUT OF RANGE REFERENCE UNITS LAB UCOL Yellow Color Yellow LAB [facility] Clear Clarity Abnormal Cloudy Alert LAB UGLUC Negative mg/dL Glucose, Urine Negative LAB UBIL Negative Bilirubin, Urine Negative LAB UKET Negative Ketones, Urine Negative LAB USPG 1.005-1.030 Specific Breaks, Ur 1.019 LAB UHGB Negative Hemoglobin/Blood, Negative Ur LAB UPH 5.0-8.0 pH 8.0 LAB UPROT Negative mg/dL Protein, Abnormal Urine 30 Alert LAB UUROB <2.0 Urobilinogen <2.0 LAB UNITR Negative Nitrites Abnormal Positive Alert LAB ULKEST Negative Leukest Abnormal Trace Alert LAB UCOM Comments SEE COMMENT Result Comment: Microscopic Examination Performed LAB UWBC Negative /HPF Abnormal Alert WBC 5-10 LAB URBC Negative /HPF Abnormal Alert RBC 0-5 LAB UBACT Negative /HPF Abnormal Alert Bacteria Rare LAB UCRYS 0 /HPF Abnormal Alert Crystals SEE COMMENT Result Comment: Moderate Amorphous LAB MUCSI Present Mucus Performed By: #### UA #### [place] [address] Observed: 12/02/2017 Status: F Source: [place] BLOOD CULTURE 9:28 AM [facility] REPOSITORY Sp. Request/Comment: - The blood culture bottles are underfilled. Adding volume lower or higher than the 8 to 10 mL per bottle, which is the manufacturers recommended volume, may adversely affect the re covery and/or detection of organisms. 8.4CC Culture Result - No growth 5 days Performed By: #### BLCUL #### [facility] [address] [place], [place] [address] PROGRESS Observed: 12/02/2017 Status: COMPLETED Source: [place] 8:52 AM [facility] REPOSITORY HNO ID: [id number] Author: Troy Arce (Grocery Carrier) Luis Armando Service: Trauma Author Type: Nurse Practitioner Type: Progress Notes Filed: 12/02/2017 1:24 PM Note Text: TRAUMA PROGRESS NOTE SERVICE DATE: 12/02/2017 SERVICE TIME: 8:53 AM Subjective HISTORY (LAST 24 HOURS): pt is 47 yo male with past med hx significant for MRDD with shunt placements, (recent removal) known to [facility] dept. who fell out of bed this am. Pt reported by family to have had very poor appetitie lately. Pt originally went to [facility] and had CT scan which revealed known clif hygromas and a amll Left sided SAH. Pt was a transfer to ED as a trauma 2.alert. Upon review of imaging pt found to appear to have elevation WBC and abnormal, K . Went to [facility] [place] (Dr. Smith) to inspect out side CT scan.He is familiar with this patient. no need for neurosurgical intervention. will plan for admission to SICU with medicine on consult to manage many electrolyte issues. Getting sepsis workup. dalton placed at bedside iN ED. 2:51 PM upon revisiting pt in ED , pt has become more somnelent , opens eyes and follows commands.Now GCS score of 10 . ?appears sleepy, and not vocalizing as he was on arrival. Will plan to assess in ICU setting overnight ? 11/26/17 Pt seen this am sleeping in bed. He was very difficult to arouse and nurse said he was the same this earlier this am. When he was woken up he did not have any complaints. NSGY is on board to see him. reapeat CT scan show stable intracranial hemorrhage. Transfer To [facility] Once cleared by NSGY ? 11/27/17 Pt is awake and lying in bed this morning. Was transferred to regular nursing floor. Pt is stable. ?Patient was talkative, but unable to be understood this morning. Being seen by Neurosurgery,no acute surgical intervention with final recs pending. November 28, 2017?pt seen this am, will answer simple questions, reported to have been violent striking, spitting on staff at times. this has been endorsed by pt mother who cares for him at home. Given concern for mother (elderly, frail) and violent outbursts will need case management ?to intervene if home enviroment is safe for pt and family. Severe protein malnutrition, pt not eating here as well as reported refusal to eat at home. Nutrition on consult, will place medical consult to assist with optimization of labs, medical management. psych consult to be placed as well. blood cx negative ? November 29, 2017 pt seen this am sleeping, at times, combative. psych is on. will keep K above 4 and mag above 2 per recs. Pt is medically cleared for discharge to SNF ? November 30, 2017 Pt seen this am after having 3 episodes of emesis and temp of 99.4. When asked why he thinks he is vomiting he states that he is not getting sick and became combative and threatening during examination. Pt was able to converse and threaten others. Minimal concern for exacerbation of SAH as source for N/V. Will order zofran and scopolamine patch for nausea. He has no other complaints. ? December 01, 2017 Pt has no new complaints. He states he has not vomited since yesterday and does not feel nauseous today. He had a tmax of 100.0 oral yesterday. Has no had an increase in WBC from 9.98 to 18.55. Will begin work up for source of infection starting with CXR and UA. December 02, 2017 pt evaluated, no overnight events, spoke to ID re pt persistent Leukocytosis, no immediate concerns, noted may be chronic issue. reported 1 episode pof low grade temp overnight 38.1. asymptomatic, staright cath for urinalysis and blood cx ordered, lung sounds clear throughtout. will plan for discharge. PERTINENT ROS: GENERAL: No weight loss, malaise or fevers HEENT: Negative for frequent or significant headaches, No changes in hearing or vision, no nose bleeds or other nasal problems RESPIRATORY: Negative for cough, hemoptysis, wheezing, COPD, dyspnea or shortness of breath CARDIOVASCULAR: Negative for chest pain, leg swelling, hypertension, CHF or palpitations GI: No nausea, vomiting, or diarrhea : No history of dysuria, frequency or incontinence MUSCULOSKELETAL: Negative for joint pain or swelling, back pain or muscle pain NEURO: No history of headaches, syncope, paralysis, seizures or tremors Current hospital medications: ondansetron (PF) 4 mg injection (ZOFRAN) 4 mg INTRAVENOUS q 6 H PRN scopolamine 1 mg over 3 days 1 Patch (TRANSDERM-SCOP) 1 Patch TRANSDERMAL q 72 HR [START ON 12/03/2017] scopolamine - REMOVE PATCH OTHER q 72 HR scopolamine - VERIFY patch OTHER q 8 H acetaminophen 650 mg tab(s) (TYLENOL) 650 mg ORAL q 4 H PRN heparin 5,000 Units injection 5,000 Units SUBCUTANEOUS q 12 H nicotine 7 mg/24 hr 1 Patch (NICODERM) 1 Patch TRANSDERMAL DAILY nicotine -- REMOVE patch OTHER DAILY nicotine - verify patch OTHER q 8 H magnesium oxide 400 mg tab(s) (MAG-OX) 400 mg ORAL BID cyanocobalamin 1,000 mcg (VITAMIN B-12) 1,000 mcg ORAL DAILY ARIPiprazole 2 mg tablet (ABILIFY) 2 mg ORAL BID 9a/4p gabapentin 200 mg cap(s) (NEURONTIN) 200 mg ORAL TID 9a/1p/5p gabapentin 300 mg cap(s) (NEURONTIN) 300 mg ORAL AT BEDTIME gabapentin 400 mg cap(s) (NEURONTIN) 400 mg ORAL HS PRN gabapentin 300 mg cap(s) (NEURONTIN) 300 mg ORAL TID PRN gabapentin 300 mg cap(s) (NEURONTIN) 300 mg ORAL TID PRN LORazepam 0.5 mg injection (ATIVAN) 0.5 mg INTRAVENOUS TID PRN labetalol 5-10 mg injection (NORMODYNE) 5-10 mg INTRAVENOUS q 2 H PRN metoprolol tartrate (short acting) 25 mg tab(s) (LOPRESSOR) 25 mg ORAL q 8 H phenytoin ER (DILANTIN) cap(s) 130 mg 130 mg ORAL DAILY (8 AM) phenytoin ER 200 mg cap(s) (DILANTIN) 200 mg ORAL AT BEDTIME PARoxetine 40 mg tab(s) (PAXIL) 40 mg ORAL DAILY docusate sodium 100 mg cap(s) (COLACE) 100 mg ORAL BID Objective ASSESSMENT: BP 136/74 Pulse 85 Temp (Src) 98.3 (Oral) Resp 18 Ht 5' 5.984 (1.68m) Wt 101 lb 6.6 oz (46.0kg) SpO2 96% BMI 16.38 kg/(m2). Genl: ?Appears age appropriate. ?No acute distress. ?Resting comfortably. Head/Face: Normocephalic. ?Atraumatic. Post cranial surgery scars Eyes: ??EOMI. ?Sclera not icteric ENMT: ?TMs clear. ?External auditory canals clear. ?Oropharynx is clear. ?Nasopharynx is clear. Neck: ?C-spine non-tender. Back: ?T AND?L Spine non-tender, no step-offs noted. ?No flank tenderness. Chest:???Breathing is non-labored. GI: ?Abdomen is soft, non-tender, not distended. ?Bowel sounds normal. ?No peritonitis. MSK: ?Extremities without clubbing, cyanosis, edema. ?Normal ROM x 4. Skin: ?Warm and dry. ?No lesions of concern. ?Not jaundiced. ?No abrasions/contusions. Neuro: AANDOx3. ?Baseline RUE deficit. ?No cerebellar signs Psych: Talkative but difficult to understand this morning. DATA: 12/01/17: RESULT: Lines, tubes, and devices: ?None. Lungs and pleura: ?No new consolidation, large effusion or pneumothorax seen. Cardiomediastinal silhouette: ?The heart is not enlarged and pulmonary vessels within normal limits. CXR: Labs: Recent Labs 12/01/17 0543 11/30/17 0647 WBC 18.55* 9.98 HB 12.9* 12.4* HCT 37.8* 37.4* PLT 490* 450* NA 133* 140 K 4.5 4.0 CHLOR 95* 96* CO2 27 33* CREAT 0.39* 0.37* P 3.6 3.2 BUN 8* 11 GLUC 99 96 MG 2.1 1.9 CA 8.8 8.9 Results for JAYLENE RAM ( ) as of 12/02/2017 08:56 Ref. Range 11/25/2017 13:00 Color Latest Ref Range: Yellow Stephany (A) Clarity Latest Ref Range: Clear Cloudy (A) Specific Breaks, Ur Latest Ref Range: 1.005 - 1.030 1.025 pH, Urine Latest Ref Range: 5.0 - 8.0 5.0 Protein, Urine Latest Ref Range: Negative mg/dL 100 (A) Glucose, Urine Latest Ref Range: Negative mg/dL Negative Ketones, Urine Latest Ref Range: Negative Negative Bilirubin, Urine Latest Ref Range: Negative Positive (A) Hemoglobin/Blood,Ur Latest Ref Range: Negative Small (A) Urobilinogen Latest Ref Range: <2.0 4 (H) Leukest Latest Ref Range: Negative Negative Nitrites Latest Ref Range: Negative Negative WBC, Urine Latest Ref Range: Negative /HPF 5-10 (A) RBC, Urine Latest Ref Range: Negative /HPF 10-25 (A) Cast Latest Ref Range: 0 /LPF SEE COMMENT (A) Assessment/Plan ACTIVE PROBLEM LIST Htn (Hypertension) Obstructive Hydrocephalus Ht (Hammer Toe) Hallux Valgus (Acquired) Postop Check Gait Disorder Ulcer of Other Part of Foot Osteopenia Fixation Hardware in Foot Seizure Disorder (Hcc) Ulcer of Toe of Right Foot (Hcc) Surgical Follow-Up Care Ingrown Toenail Shunt Malfunction Blurry Vision, Left Eye Vision Loss Tbi (Traumatic Brain Injury) (Hcc) Sah (Subarachnoid Hemorrhage) (Hcc) Severe Protein-Calorie Malnutrition (Hcc) Medication and Non-Pharmacologic VTE Prophylaxis/Anticoagulants Anticoagulant AND Antiplatelet Medications Start Dose Route Frequency Ordered Stop 11/29/17 0900 heparin 5,000 Units injection 5,000 Units SUBCUTANEOUS EVERY 12 HOURS 11/29/17 0845 -- 11/26/17 1030 activity - mobilize patient (vt,md) 11/25/17 1600 vte pharmacologic prophylaxis contraindicated (vt,md) 11/25/17 1600 pneumatic compression stockings ([place], [place]) 11/25/17 1600 activity - mobilize patient (vt,md) VTE Prophylaxis: VTE prophylaxis appropriate VTE Prophylaxis: VTE prophylaxis appropriate Right temporal contusion Right shoulder abrasion Small left SAH- stable on repeat CT 11/26 Neurosurgery consult- no acute surgical intervention severe protein calorie malnutrition nutrition consult speech language consult- dysphagia level 2 , thin liquids will attempt to get modified barium swallow violent out bursts have been norm at home enviroment lately- escalation recent psych consult Keep K above 4.0 and Mag above 2.0 per psych Pt, ot, Case management - SNF Needs pre cert Nausea/vomiting low suspicion due to worsening sah, zofran and scopolamine patch Pt has had recent slightly elevated temp and increase in WBC- CXR and UA for infection work up. reconsult ID then plan for dispo start Na phos for repletion SIGNATURE: Troy Durán, MISTY.EXPLOSIVE OPERATOR SUPERVISOR PATIENT NAME: Jaylene Ram DATE: December 02, 2017 TIME: 8:53 AM PAGER/CONTACT #: [phone] cell NURSING PROG Observed: 12/02/2017 Status: COMPLETED Source: [place] 8:04 AM [facility] REPOSITORY HNO ID: [id number] Author: Guillermina De La TorreRn) Vito RN Service: Nursing Author Type: Registered Nurse Type: Nursing Progress Note Filed: 12/02/2017 9:55 AM Note Text: Nursing Progress Note Patient Name: Jaylene Ram Patient Location: [place] [address] [address] Daily Note: Patient AOx1, disoriented to place and time. Uncooperative and agitated at times, sitter at bedside. Patient refusing telemetry. Lungs clear bilat, patient on room air- sats WNL. Abodmen soft/non tender/BS+. No edema noted. Safety maintained, call light within reach. Will continue to monitor. 0930 Patient straight cath for UA at this time, tolerated well This note was completed by: Guillermina Padron RN NURSING PROG Observed: 12/01/2017 Status: COMPLETED Source: [place] 10:29 PM [facility] REPOSITORY HNO ID: [id number] Author: Abram De La TorreRn) DERIC Meyer Service: (none) Author Type: Registered Nurse Type: Nursing Progress Note Filed: 12/01/2017 10:32 PM Note Text: Nursing Progress Note Patient Name: Jaylene Ram Patient [facility]: [id number] Daily Note: pt AANDOx1, alert to self. Uncooperative and agitated at times. Refusing telemetry. Incontinent of bowel and bladder. Sitter at bedside. One bout of emesis around 1999. Safety maintained, call light in reach, will continue to monitor. This note was completed by: Abram Meyer RN NURSING PROG Observed: 12/01/2017 Status: COMPLETED Source: [place] 5:33 PM [facility] OTHER [facility] REPOSITORY HNO ID: [id number] Author: Marlene Mejias (Rn) DERIC Villalpando Service: (none) Author Type: Registered Nurse Type: Nursing Progress Note Filed: 12/01/2017 5:37 PM Note Text: Nursing Progress Note Patient Name: Jaylene Ram Patient Location: [id number] Daily Note: Pt has been alert, confused, oriented to self, agitated and uncooperative at times, cursing at staff and his mother at bedside and swinging at staff at times. Other times pt cooperative, follows simple commands, poor short term memory, speech garbled at times. Pt not cooperative with delerium assessment, refused medications this morning and then agreeable to take them later in the morning. Poor appetite, did drink ensure at lunch time. Pt incontinent of urine, ordered to have UA, have attempted to assist pt with urinal to obtain sample but unable at this time, pt does not seem like he would cooperate with a straight cath. Will continue to attempt. 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 This note was completed by: Marlene Villalpando RN [facility]IED [facility] Observed: 12/01/2017 Status: COMPLETED Source: [place] 1:16 PM [facility] OTHER CAMPUS REPOSITORY HNO ID: [id number] Author: Gisele Denton (Tech) Service: (none) Author Type: Sequins Winder Type: Allied Health Filed: 12/01/2017 1:16 PM Note Text: Radiology Service Progress Note PATIENT NAME: Jaylene Ram DATE OF SERVICE: December 01, 2017 TIME: 1:16 PM PATIENT IDENTITY VERIFICATION COMPLETED USING TWO (2) METHODS: Patient confirmed name verbally and ID band matches.. PATIENT GENDER DATA: Male PATIENT RELEVANT IMPLANT DATA REVIEWED: Not Applicable RADIOLOGY DEPARTMENT: General X-ray: Exam(s) Completed: Chest X-Ray PERIPHERAL IV DATA: Not applicable SIGNED BY: Gisele Denton December 01, 2017 1:16 PM XR CHEST 1V FRONTAL Observed: 12/01/2017 Status: F Source: [facility] 1:12 PM [facility] [place] REPOSITORY * * *Final Report* * * DATE OF EXAM: Dec 01 2017 1:12PM FVX [id number] - XR CHEST 1V FRONTAL PORT / PROCEDURE REASON: Cough, new onset * * * * Physician Interpretation * * * * EXAMINATION: CHEST RADIOGRAPH (PORTABLE SINGLE VIEW AP) Exam Date/Time: 12/01/2017 1:12 PM Clinical History: Cough, new onset MQ: XCPR_5 Comparison: 11/25/2017 RESULT: Lines, tubes, and devices: None. Lungs and pleura: No new consolidation, large effusion or pneumothorax seen. Cardiomediastinal silhouette: The heart is not enlarged and pulmonary vessels within normal limits. Other: . IMPRESSION: As above Filler Room Attendant: PSCB Transcribe Date/Time: Dec 02 2017 9:03A Dictated by : AMOS POOLE MD This examination was interpreted and the report reviewed and electronically signed by: AMOS POOLE MD on Dec 02 2017 9:07AM EST [id number] Observed: 12/01/2017 Status: COMPLETED Source: [place] 12:09 PM [facility] OTHER CAMPUS REPOSITORY HNO ID: [id number] Author: Otoniel Ramirez (Pa) Service: Trauma Author Type: Physician Candy Catcher Type: Progress Notes Filed: 12/01/2017 12:15 PM Note Text: TRAUMA PROGRESS NOTE SERVICE DATE: 12/01/2017 SERVICE TIME: 12:09 PM Subjective HISTORY (LAST 24 HOURS): November 28, 2017?pt seen this am, will answer simple questions, reported to have been violent striking, spitting on staff at times. this has been endorsed by pt mother who cares for him at home. Given concern for mother (elderly, frail) and violent outbursts will need case management ?to intervene if home enviroment is safe for pt and family. Severe protein malnutrition, pt not eating here as well as reported refusal to eat at home. Nutrition on consult, will place medical consult to assist with optimization of labs, medical management. psych consult to be placed as well. blood cx negative ? November 29, 2017 pt seen this am sleeping, at times, combative. psych is on. will keep K above 4 and mag above 2 per recs. Pt is medically cleared for discharge to SNF ? November 30, 2017 Pt seen this am after having 3 episodes of emesis and temp of 99.4. When asked why he thinks he is vomiting he states that he is not getting sick and became combative and threatening during examination. Pt was able to converse and threaten others. Minimal concern for exacerbation of SAH as source for N/V. Will order zofran and scopolamine patch for nausea. He has no other complaints. ? December 01, 2017 Pt has no new complaints. He states he has not vomited since yesterday and does not feel nauseous today. He had a tmax of 100.0 oral yesterday. Has no had an increase in WBC from 9.98 to 18.55. Will begin work up for source of infection starting with CXR and UA. PERTINENT ROS: REVIEW OF SYSTEMS GENERAL: No weight loss, malaise or fevers HEENT: Negative for frequent or significant headaches, No changes in hearing or vision, no nose bleeds or other nasal problems RESPIRATORY: Negative for cough, hemoptysis, wheezing, COPD, dyspnea or shortness of breath CARDIOVASCULAR: Negative for chest pain, leg swelling, hypertension, CHF or palpitations GI: No nausea, vomiting, or diarrhea : No history of dysuria, frequency or incontinence MUSCULOSKELETAL: Negative for joint pain or swelling, back pain or muscle pain NEURO: No history of headaches, syncope, paralysis, seizures or tremors Current hospital medications: ondansetron (PF) 4 mg injection (ZOFRAN) 4 mg INTRAVENOUS q 6 H PRN scopolamine 1 mg over 3 days 1 Patch (TRANSDERM-SCOP) 1 Patch TRANSDERMAL q 72 HR [START ON 12/03/2017] scopolamine - REMOVE PATCH OTHER q 72 HR scopolamine - VERIFY patch OTHER q 8 H acetaminophen 650 mg tab(s) (TYLENOL) 650 mg ORAL q 4 H PRN heparin 5,000 Units injection 5,000 Units SUBCUTANEOUS q 12 H nicotine 7 mg/24 hr 1 Patch (NICODERM) 1 Patch TRANSDERMAL DAILY nicotine -- REMOVE patch OTHER DAILY nicotine - verify patch OTHER q 8 H magnesium oxide 400 mg tab(s) (MAG-OX) 400 mg ORAL BID cyanocobalamin 1,000 mcg (VITAMIN B-12) 1,000 mcg ORAL DAILY ARIPiprazole 2 mg tablet (ABILIFY) 2 mg ORAL BID 9a/4p gabapentin 200 mg cap(s) (NEURONTIN) 200 mg ORAL TID 9a/1p/5p gabapentin 300 mg cap(s) (NEURONTIN) 300 mg ORAL AT BEDTIME gabapentin 400 mg cap(s) (NEURONTIN) 400 mg ORAL HS PRN gabapentin 300 mg cap(s) (NEURONTIN) 300 mg ORAL TID PRN gabapentin 300 mg cap(s) (NEURONTIN) 300 mg ORAL TID PRN LORazepam 0.5 mg injection (ATIVAN) 0.5 mg INTRAVENOUS TID PRN labetalol 5-10 mg injection (NORMODYNE) 5-10 mg INTRAVENOUS q 2 H PRN metoprolol tartrate (short acting) 25 mg tab(s) (LOPRESSOR) 25 mg ORAL q 8 H phenytoin ER (DILANTIN) cap(s) 130 mg 130 mg ORAL DAILY (8 AM) phenytoin ER 200 mg cap(s) (DILANTIN) 200 mg ORAL AT BEDTIME PARoxetine 40 mg tab(s) (PAXIL) 40 mg ORAL DAILY docusate sodium 100 mg cap(s) (COLACE) 100 mg ORAL BID Objective ASSESSMENT: BP 119/72 Pulse 78 Temp (Src) 97.5 (Axillary) Resp 18 Ht 5' 5.984 (1.68m) Wt 101 lb 6.6 oz (46.0kg) SpO2 97% BMI 16.38 kg/(m2). Genl: ?Appears age appropriate. ?No acute distress. ?Resting comfortably. Head/Face: Normocephalic. ?Atraumatic. Post cranial surgery scars Eyes: ??EOMI. ?Sclera not icteric ENMT: ?TMs clear. ?External auditory canals clear. ?Oropharynx is clear. ?Nasopharynx is clear. Neck: ?C-spine non-tender. Back: ?T AND?L Spine non-tender, no step-offs noted. ?No flank tenderness. Chest:???Breathing is non-labored. GI: ?Abdomen is soft, non-tender, not distended. ?Bowel sounds normal. ?No peritonitis. MSK: ?Extremities without clubbing, cyanosis, edema. ?Normal ROM x 4. Skin: ?Warm and dry. ?No lesions of concern. ?Not jaundiced. ?No abrasions/contusions. Neuro: AANDOx3. ?Baseline RUE deficit. ?No cerebellar signs Psych: Talkative but difficult to understand this morning. DATA: CXR:pending Labs: Recent Labs 12/01/17 0543 11/30/17 0647 11/29/17 0717 WBC 18.55* 9.98 14.41* HB 12.9* 12.4* 12.5* HCT 37.8* 37.4* 36.6* PLT 490* 450* 412* NA 133* 140 133* K 4.5 4.0 3.5 CHLOR 95* 96* 95* CO2 27 33* 25 CREAT 0.39* 0.37* 0.35* P 3.6 3.2 2.6 BUN 8* 11 11 GLUC 99 96 98 MG 2.1 1.9 1.7 CA 8.8 8.9 8.6 Assessment/Plan Medication and Non-Pharmacologic VTE Prophylaxis/Anticoagulants Anticoagulant AND Antiplatelet Medications Start Dose Route Frequency Ordered Stop 11/29/17 0900 heparin 5,000 Units injection 5,000 Units SUBCUTANEOUS EVERY 12 HOURS 11/29/17 0845 -- 11/26/17 1030 activity - mobilize patient (vt,md) 11/25/17 1600 vte pharmacologic prophylaxis contraindicated (vt,md) 11/25/17 1600 pneumatic compression stockings (vt,md) 11/25/17 1600 activity - mobilize patient (vt,md) VTE Prophylaxis: VTE prophylaxis appropriate Right temporal contusion Right shoulder abrasion Small left SAH- stable on repeat CT 11/26 Neurosurgery consult- no acute surgical intervention severe protein calorie malnutrition nutrition consult speech language consult- dysphagia level 2 , thin liquids will attempt to get modified barium swallow violent out bursts have been norm at home enviroment lately- escalation recent psych consult Keep K above 4.0 and Mag above 2.0 per psych Pt, ot, Case management - SNF Needs pre cert Nausea/vomiting low suspicion due to worsening sah, zofran and scopolamine patch Pt has had recent slightly elevated temp and increase in WBC- CXR and UA for infection work up. SIGNATURE: PATY Qiuntero PATIENT NAME: Jaylene Ram DATE: December 01, 2017 TIME: 12:09 PM PAGER/CONTACT #: CASE MANAGEM Observed: 12/01/2017 Status: COMPLETED Source: [place] 8:21 AM [facility] REPOSITORY HNO ID: [id number] Author: Kim (Rn) DERIC Naranjo Service: Care Management Author Type: Registered Nurse Type: Care Mgt Progress Note Filed: 12/01/2017 8:22 AM Note Text: CARE MANAGEMENT PROGRESS NOTE SERVICE DATE: 12/01/2017 SERVICE TIME: 821 LOS: 6 days Needs Prior to Discharge: Discharge Transportation;Precertification Need precert prior to SNF placement at [facility]. CM to follow-up Saturday about authorization. SIGNATURE: Kim Naranjo RN,BSN PATIENT NAME: Jaylene Ram DATE: December 01, 2017 TIME: 8:22 AM PAGER/CONTACT #: [phone] BASIC METABOLIC PANL Collected: 12/01/2017 Status: F Source: [place] 5:43 AM [facility] [place] REPOSITORY TYPE CODE TESTS RESULT OUT OF REFERENCE UNITS RANGE LAB GLU 65-100 mg/dL Glucose 99 LAB BUN 10-25 mg/dL Low BUN 8 LAB CRET 0.70-1.40 mg/dL Low Creatinine 0.39 LAB NA 135-146 mmol/L Low Sodium 133 LAB K 3.5-5.0 mmol/L Potassium 4.5 LAB CL 98-110 mmol/L Low Chloride 95 LAB CO2 23-32 mmol/L CO2 27 LAB AGAP 9-18 mmol/L Anion Gap 11 LAB CA 8.5-10.5 mg/dL Calcium, Total 8.8 LAB GFRAA >60 eGFR- >60 Amer. LAB GFRNAA >60 . eGFR-All Other Races >60 Performed By: #### BMP, MG1, PHOS, CBCDIF #### [place] [address] MAGNESIUM Collected: 12/01/2017 Status: F Source: [place] 5:43 AM [facility] REPOSITORY TYPE CODE TESTS RESULT OUT OF REFERENCE UNITS RANGE LAB MG 1.7-2.6 mg/dL Magnesium 2.1 Performed By: #### BMP, MG1, PHOS, CBCDIF #### [place] [address] PHOSPHORUS Collected: 12/01/2017 Status: F Source: [place] 5:43 AM [facility] REPOSITORY TYPE CODE TESTS RESULT OUT OF REFERENCE UNITS RANGE LAB PHOS 2.5-4.5 mg/dL Phosphorus 3.6 Performed By: #### SANAM, MG1, PHOS, CBCDIF #### [place] [address] CBC AND DIFFERENTIAL Collected: 12/01/2017 Status: F Source: [place] 5:43 AM [facility] REPOSITORY TYPE CODE TESTS RESULT OUT OF REFERENCE UNITS RANGE LAB WBC 3.70-11.00 k/uL WBC High 18.55 LAB RBC 4.20-6.00 m/uL RBC Low 4.10 LAB HGB 13.0-17.0 g/dL Low Hemoglobin 12.9 LAB HCT 39.0-51.0 % Low Hematocrit 37.8 LAB MCV 80.0-100.0 fL MCV 92.2 LAB MCH 26.0-34.0 pG MCH 31.5 LAB MCHC 30.5-36.0 g/dL MCHC 34.1 LAB RDWCV 11.5-15.0 % RDW-CV 12.8 LAB PLTCT 150-400 k/uL Platelet High Count 490 LAB MPV 9.0-12.7 fL MPV 9.3 LAB NEUTS % Neut% 77.0 LAB AANEUT 1.45-7.50 k/uL Abs Neut High 14.28 LAB LYMPHS % Lymph% 13.0 LAB AALYMP 1.00-4.00 k/uL Abs Lymph 2.41 LAB MONOS % [place]% 9.0 LAB AAMONO <0.87 k/uL Abs [place] High 1.67 LAB EOS % Eosin% 1.0 LAB AAEOS <0.46 k/uL Abs Eosin 0.19 LAB BASOS % Baso% 0.0 LAB AABASO <0.11 k/uL Abs Baso 0.00 LAB ABIMMG k/uL ANC(includeSEG+B 14.28 AND) LAB RBCMOR Red Cell Morph SEE COMMENT Result Comment: Unremarkable LAB PLTEST Platelet Platelet Estimate estimate increased LAB DTYP DTYPE Manual Diff Performed By: #### BMP, MG1, PHOS, CBCDIF #### [place] [address] NURSING PROG Observed: 11/30/2017 Status: COMPLETED Source: [place] 9:20 PM [facility] REPOSITORY HNO ID: [id number] Author: Abram Luna) DERIC Meyer Service: (none) Author Type: Registered Nurse Type: Nursing Progress Note Filed: 11/30/2017 9:22 PM Note Text: Nursing Progress Note Patient Name: Jaylene Ram Patient [facility] Daily Note: Pt AANDOx1 to self, drowsy but arousable, uncooperative at times. Lungs diminished throughout, on RA. Refusing telemetry. Incontinent of bowel and bladder. Sitter at bedside. Safety maintained, call light in reach, will continue to monitor. This note was completed by: Abram Meyer RN PROGRESS Observed: 11/30/2017 Status: COMPLETED Source: [place] 11:20 AM [facility] [place] REPOSITORY HNO ID: [id number] Author: Otoniel Ramirez (Pa) Service: Trauma Author Type: Physician Candy Catcher Type: Progress Notes Filed: 11/30/2017 11:28 AM Note Text: TRAUMA PROGRESS NOTE SERVICE DATE: 11/30/2017 SERVICE TIME: 11:21 AM Subjective HISTORY (LAST 24 HOURS): pt is 47 yo male with past med hx significant for MRDD with shunt placements, (recent removal) known to [facility] de[facility]. who fell out of bed this am. Pt reported by family to have had very poor appetitie lately. Pt originally went to [facility] and had CT scan which revealed known clif hygromas and a amll Left sided SAH. Pt was a transfer to ED as a trauma 2.alert. Upon review of imaging pt found to appear to have elevation WBC and abnormal, K . Went to [place] in [place] (Dr. Smith) to inspect out side CT scan.He is familiar with this patient. no need for neurosurgical intervention. will plan for admission to SICU with medicine on consult to manage many electrolyte issues. Getting sepsis workup. dalton placed at bedside iN ED. 2:51 PM upon revisiting pt in ED , pt has become more somnelent , opens eyes and follows commands.Now GCS score of 10 . ?appears sleepy, and not vocalizing as he was on arrival. Will plan to assess in ICU setting overnight ? 11/26/17 Pt seen this am sleeping in bed. He was very difficult to arouse and nurse said he was the same this earlier this am. When he was woken up he did not have any complaints. NSGY is on board to see him. reapeat CT scan show stable intracranial hemorrhage. Transfer To [facility] Once cleared by NSGY ? 11/27/17 Pt is awake and lying in bed this morning. Was transferred to regular nursing floor. Pt is stable. ?Patient was talkative, but unable to be understood this morning. Being seen by Neurosurgery,no acute surgical intervention with final recs pending. ? November 28, 2017?pt seen this am, will answer simple questions, reported to have been violent striking, spitting on staff at times. this has been endorsed by pt mother who cares for him at home. Given concern for mother (elderly, frail) and violent outbursts will need case management ?to intervene if home enviroment is safe for pt and family. Severe protein malnutrition, pt not eating here as well as reported refusal to eat at home. Nutrition on consult, will place medical consult to assist with optimization of labs, medical management. psych consult to be placed as well. blood cx negative ? November 29, 2017 pt seen this am sleeping, at times, combative. psych is on. will keep K above 4 and mag above 2 per recs. Pt is medically cleared for discharge to SNF November 30, 2017 Pt seen this am after having 3 episodes of emesis and temp of 99.4. When asked why he thinks he is vomiting he states that he is not getting sick and became combative and threatening during examination. Pt was able to converse and threaten others. Minimal concern for exacerbation of SAH as source for N/V. Will order zofran and scopolamine patch for nausea. He has no other complaints. PERTINENT ROS: REVIEW OF SYSTEMS GENERAL: No weight loss, malaise or fevers HEENT: Negative for frequent or significant headaches, No changes in hearing or vision, no nose bleeds or other nasal problems RESPIRATORY: Negative for cough, hemoptysis, wheezing, COPD, dyspnea or shortness of breath CARDIOVASCULAR: Negative for chest pain, leg swelling, hypertension, CHF or palpitations GI: No nausea, vomiting, or diarrhea : No history of dysuria, frequency or incontinence MUSCULOSKELETAL: Negative for joint pain or swelling, back pain or muscle pain NEURO: No history of headaches, syncope, paralysis, seizures or tremors Current hospital medications: heparin 5,000 Units injection 5,000 Units SUBCUTANEOUS q 12 H nicotine 7 mg/24 hr 1 Patch (NICODERM) 1 Patch TRANSDERMAL DAILY nicotine -- REMOVE patch OTHER DAILY nicotine - verify patch OTHER q 8 H magnesium oxide 400 mg tab(s) (MAG-OX) 400 mg ORAL BID cyanocobalamin 1,000 mcg (VITAMIN B-12) 1,000 mcg ORAL DAILY ARIPiprazole 2 mg tablet (ABILIFY) 2 mg ORAL BID 9a/4p gabapentin 200 mg cap(s) (NEURONTIN) 200 mg ORAL TID 9a/1p/5p gabapentin 300 mg cap(s) (NEURONTIN) 300 mg ORAL AT BEDTIME gabapentin 400 mg cap(s) (NEURONTIN) 400 mg ORAL HS PRN gabapentin 300 mg cap(s) (NEURONTIN) 300 mg ORAL TID PRN gabapentin 300 mg cap(s) (NEURONTIN) 300 mg ORAL TID PRN LORazepam 0.5 mg injection (ATIVAN) 0.5 mg INTRAVENOUS TID PRN labetalol 5-10 mg injection (NORMODYNE) 5-10 mg INTRAVENOUS q 2 H PRN metoprolol tartrate (short acting) 25 mg tab(s) (LOPRESSOR) 25 mg ORAL q 8 H phenytoin ER (DILANTIN) cap(s) 130 mg 130 mg ORAL DAILY (8 AM) phenytoin ER 200 mg cap(s) (DILANTIN) 200 mg ORAL AT BEDTIME PARoxetine 40 mg tab(s) (PAXIL) 40 mg ORAL DAILY docusate sodium 100 mg cap(s) (COLACE) 100 mg ORAL BID Objective ASSESSMENT: BP 158/84 Pulse 98 Temp (Src) 99.4 (Oral) Resp 20 Ht 5' 5.984 (1.68m) Wt 101 lb 6.6 oz (46.0kg) SpO2 98% BMI 16.38 kg/(m2). Genl: ?Appears age appropriate. ?No acute distress. ?Resting comfortably. Head/Face: Normocephalic. ?Atraumatic. Post cranial surgery scars Eyes: ??EOMI. ?Sclera not icteric ENMT: ?TMs clear. ?External auditory canals clear. ?Oropharynx is clear. ?Nasopharynx is clear. Neck: ?C-spine non-tender. Back: ?T AND?L Spine non-tender, no step-offs noted. ?No flank tenderness. Chest:???Breathing is non-labored. GI: ?Abdomen is soft, non-tender, not distended. ?Bowel sounds normal. ?No peritonitis. MSK: ?Extremities without clubbing, cyanosis, edema. ?Normal ROM x 4. Skin: ?Warm and dry. ?No lesions of concern. ?Not jaundiced. ?No abrasions/contusions. Neuro: AANDOx3. ?Baseline RUE deficit. ?No cerebellar signs Psych: Talkative but difficult to understand this morning. DATA: Labs: Recent Labs 11/30/17 0647 11/29/17 0717 11/28/17 1519 WBC 9.98 14.41* 15.94* HB 12.4* 12.5* 12.7* HCT 37.4* 36.6* 35.9* PLT 450* 412* 410* NA 140 133* 136 K 4.0 3.5 3.3* CHLOR 96* 95* 95* CO2 33* 25 28 CREAT 0.37* 0.35* 0.39* P 3.2 2.6 -- BUN 11 11 13 GLUC 96 98 116* MG 1.9 1.7 -- CA 8.9 8.6 8.7 Assessment/Plan Medication and Non-Pharmacologic VTE Prophylaxis/Anticoagulants Anticoagulant AND Antiplatelet Medications Start Dose Route Frequency Ordered Stop 11/29/17 0900 heparin 5,000 Units injection 5,000 Units SUBCUTANEOUS EVERY 12 HOURS 11/29/17 0845 -- 11/26/17 1030 activity - mobilize patient (vt,md) 11/25/17 1600 vte pharmacologic prophylaxis contraindicated (vt,md) 11/25/17 1600 pneumatic compression stockings (vt,md) 11/25/17 1600 activity - mobilize patient (vt,md) VTE Prophylaxis: VTE prophylaxis appropriate A/P Right temporal contusion Right shoulder abrasion Small left SAH- stable on repeat CT 11/26 Neurosurgery consult- no acute surgical intervention severe protein calorie malnutrition nutrition consult speech language consult- dysphagia level 2 , thin liquids will attempt to get modified barium swallow violent out bursts have been norm at home enviroment lately- escalation recent psych consult Keep K above 4.0 and Mag above 2.0 per psych Pt, ot, Case management - SNF Needs pre cert medically cleared for discharge Nausea/vomiting low suspicion due to worsening sah, zofran and scopolamine patch SIGNATURE: PATY Quintero PATIENT NAME: Jaylene Ram DATE: November 30, 2017 TIME: 11:21 AM PAGER/CONTACT #: NURSING PROG Observed: 11/30/2017 Status: COMPLETED Source: [facility] 8:10 AM CLINIC OTHER CAMPUS REPOSITORY O ID: [id number] Author: Guillermina (Rn) DERIC Padron Service: Nursing Author Type: Registered Nurse Type: Nursing Progress Note Filed: 11/30/2017 10:48 AM Note Text: Nursing Progress Note Patient Name: Jaylene Ram [facility] Daily Note: Patient AOx1, can be agitated and uncooperative at times. Lungs diminished bilat, patient on room air- sats WNL. Abdomen soft/non tender/BS+. No edema noted. Sitter at bedside. Patient incontinent of urine and stool. Safety maintained, call light within reach. Will continue to monitor. 1045 Page sent to at this time. Patient has small emesis this morning, temp 99.4, states he is not feeling right. This note was completed by: Guillermina Padron RN CBC AND DIFFERENTIAL Collected: 11/30/2017 Status: F Source: [facility] 6:47 AM CLINIC OTHER CAMPUS REPOSITORY TYPE CODE TESTS RESULT OUT OF REFERENCE UNITS RANGE LAB WBC 3.70-11.00 k/uL WBC 9.98 LAB RBC 4.20-6.00 m/uL Low RBC 3.95 LAB HGB 13.0-17.0 g/dL Low Hemoglobin 12.4 LAB HCT 39.0-51.0 % Low Hematocrit 37.4 LAB MCV 80.0-100.0 fL MCV 94.7 LAB MCH 26.0-34.0 pG MCH 31.4 LAB MCHC 30.5-36.0 g/dL MCHC 33.2 LAB RDWCV 11.5-15.0 % RDW-CV 13.0 LAB PLTCT 150-400 k/uL Platelet High Count 450 LAB MPV 9.0-12.7 fL MPV 9.4 LAB NEUTS % Neut% 64.2 LAB AANEUT 1.45-7.50 k/uL Abs Neut 6.40 LAB LYMPHS % Lymph% 21.2 LAB AALYMP 1.00-4.00 k/uL Abs Lymph 2.12 LAB MONOS % [place]% 12.5 LAB AAMONO <0.87 k/uL Abs [place] High 1.25 LAB EOS % Eosin% 2.0 LAB AAEOS <0.46 k/uL Abs Eosin 0.20 LAB BASOS % Baso% 0.1 LAB AABASO <0.11 k/uL Abs Baso <0.03 LAB DTYP DTYPE Auto Diff Performed By: #### CBCDIF, MG1, PHOS, BMP #### [place] [address] MAGNESIUM Collected: 11/30/2017 Status: F Source: [facility] 6:47 AM CLINIC OTHER [place] REPOSITORY TYPE CODE TESTS RESULT OUT OF REFERENCE UNITS RANGE LAB MG 1.7-2.6 mg/dL Magnesium 1.9 Performed By: #### CBCDIF, MG1, PHOS, BMP #### [place] [address] PHOSPHORUS Collected: 11/30/2017 Status: F Source: [facility] 6:47 AM [facility] REPOSITORY TYPE CODE TESTS RESULT OUT OF REFERENCE UNITS RANGE LAB PHOS 2.5-4.5 mg/dL Phosphorus 3.2 Performed By: #### CBCDIF, MG1, PHOS, BMP #### [place] [address] BASIC METABOLIC PANL Collected: 11/30/2017 Status: F Source: [facility] 6:47 AM [facility] REPOSITORY TYPE CODE TESTS RESULT OUT OF REFERENCE UNITS RANGE LAB GLU 65-100 mg/dL Glucose 96 LAB BUN 10-25 mg/dL BUN 11 LAB CRET 0.70-1.40 mg/dL Low Creatinine 0.37 LAB NA 135-146 mmol/L Sodium 140 Result Comment: Reviewed LAB K 3.5-5.0 mmol/L Potassium 4.0 LAB CL 98-110 mmol/L Low Chloride 96 LAB CO2 23-32 mmol/L CO2 High 33 LAB AGAP 9-18 mmol/L Anion Gap 11 LAB CA 8.5-10.5 mg/dL Calcium, Total 8.9 LAB GFRAA >60 eGFR- Amer. >60 LAB GFRNAA >60 . eGFR-All Other Races >60 Performed By: #### CBCDIF, MG1, PHOS, BMP #### [place] [address] NURSING PROG Observed: 11/29/2017 Status: COMPLETED Source: [facility] 10:32 PM CLINIC [facility] REPOSITORY HNO ID: [id number] Author: Abram (Rn) DERIC Meyer Service: (none) Author Type: Registered Nurse Type: Nursing Progress Note Filed: 11/29/2017 10:39 PM Note Text: Nursing Progress Note Patient Name: Jaylene Ram Patient Location: [place] [address] [address] Daily Note: pt AANDOx1 to self, drowsy but arousable. Uncooperative at times. Repositioned in bed. Lungs dim on RA. Refusing telemetry. Safety maintained, call light in reach, will continue to monitor 2200 - pt repositioned in bed, one bout of emesis upon repositioning This note was completed by: Abram Meyer RN THERAPY NT Observed: 11/29/2017 Status: COMPLETED Source: [facility] 3:53 PM CLINIC OTHER CAMPUS REPOSITORY HNO ID: [id number] Author: Alejandra (Auto Body Repair Teacher) Post Service: Speech/Swallow Author Type: Speech Language Pathologist Type: Therapy (PT/OT/Speech/Resp) Filed: 11/29/2017 4:13 PM Note Text: Speech Therapy MBSS Evaluation SERVICE DATE: 11/29/2017 SERVICE TIME: 1405 to 1432 ROOM: [place] [address] Nursing Recommendations: Reinforce use of swallowing strategies;Simplify commands to 1 step Diet Recommendations: Dysphagia Level 2 (Dysphagia Mechanically Altered);Thin liquids;Medications whole in puree (pudding/applesauce) Swallowing Precautions Recommendations: ? 1:1 Supervision; ? Alert (patient should be fully alert for P.O. intake); ? Check oral cavity for remaining food; ? Feed / Eat at a slow rate; ? Double swallows; ? Medications one at a time; ? Medications whole in puree; ? Limit Distractions; ? Small Bite/Sip; ? Sit upright 90 degrees for all PO; ? Supervision/Assistance for meals. Instrumental Swallow Assessment Recommendations: Modified Barium Swallow Study (MBSS) Results and Recommendations Discussed With: Patient;Nurse Recommended Discharge Disposition: Subacute/SNF Recommended Discharge Disposition Comments: dysphagia Tx Justification For Post Acute Needs: May not tolerate higher intensity programing;Medically complex;Living the community premorbidly IMPRESSION: Patient demonstrates moderate oral dysphagia and mild pharyngeal dysphagia which is negatively impacting his/her ability to effectively maintain adequate nutrition and hydration and/or airway safety. MBSS completed and the patient presented with improved cooperation throughout the exam vs/ previous sessions. Patient tolerated single cup and straw sips of thin liquids without penetration or aspiration on multiple trials; however, the patient presented with trace penetration of thin liquids during the swallow on large, consecutive sips with observed decreased laryngeal elevation. Patient did not follow commands to produce a cough-reswallow to clear penetrated amounts; however, trace amounts appeared to clear on future presentations. In addition, the patient presented with slowed, prolonged, disorganized mastication of soft and regular solids with noted tongue pumping. Trace pharyngeal residues present which the patient cleared with double swallows. See additional results of the MBSS below: Prior to the start of the procedure, a time out was taken to verbally confirm the identification of the patient utilizing but not limited to name and date of and to verify a Modified Barium Swallow is being conducted according to standard operating procedure. Instrumental Swallow Assessment Type: Modified Barium Swallow Study Modified Barium Swallow Views: Lateral position MBS Consistencies Tested: Thin Barium Liquids;Puree With Barium Paste;Soft Solid With Barium Paste;Solid With Barium Paste Oral Phase: Within Functional Limits Except: ? Bolus Preparation/Mastication: Slow prolonged mastication with complete re-collection necessary ? Bolus Transport/Lingual Motion: Repetitive/disorganized tongue motion (tongue pumping);Delayed initiation of tongue motion for A- P movement of the bolus Pharyngeal Phase: Within Functional Limits Except: ? Laryngeal Elevation: Partial superior movement of thyroid cartilage and/or partial approximation of arytenoids to epiglottic petiole ? Laryngeal Vestibular Closure/Height of the Swallow: Incomplete - narrow column of air/contrast in laryngeal vestibule ? Pharyngeal Residue: Trace residue within or on the pharyngeal structures ? Penetration: Before the swallow (trace penetration on large sips of thin liquids) ? Penetration With: Thin Liquids ? Penetration/Aspiration Scale: 2-Material enters the airway, remains above the vocal folds, and is ejected from the airway (trace amounts cleared on futher swallows) ? Rehabilitation Precautions: Modified Diet;Aspiration Precautions;Cognitive Linguistics Deficits Precaution/Activity Restriction Comments: reg diet; mobilize pt; c-spine cleared Isolation Type: None ASSESSMENT: Tolerated Full Session (increased cooperation today) Cooperation Goals for Plan of Care: Current Swallow Goals: ? --Patient, Family?will demonstrate adequate return of knowledge of all compensatory strategies/instruction to effectively assist the patient in immediate safety with oral intake and swallowing. --Patient will tolerate Dysphagia Level 2 (mechanically altered), Thin Liquids?diet consistency while utilizing compensatory/swallowing strategies given rare, minimal?cues in 90% of trials so that the patient will minimize the signs/symptoms of dysphagia. --Patient will participate in a Modified Barium Swallow Study (MBS) to thoroughly evaluate the oral and pharyngeal phase of the swallow, which cannot be substantiated through a clinical swallowing evaluation only. Through further diagnostic testing a definitive diagnosis/identification of the patient's current swallowing function and recommended treatment plan can be established. GOAL MET 11/29/17 Patient /Caregiver Goals: (unable to state) Progress Toward Goals: Progressing as expected Rehab Potential: Fair PLAN: Treatment Frequency (times per week): 2 Current admission Treatment Interventions: Dysphagia Management Plan of Care Developed with: Patient;Caregiver (RN) TREATMENT INTERVENTIONS: Therapy Diagnosis: Dysphagia, oropharyngeal phase Interventions Provided: Modified Barium Swallow Study (29134);Dysphagia Therapy (04206) $ Modified Barium Swallow Study (44877) Billed Units: 1 unit $ Dysphagia Therapy (51512) Billed Units: 1 unit Skilled Interventions: Provided education related to a typical swallowing mechanism in a compare and contrast manner compared to this patient's current skill set. , Educated and advised patient / caregiver on texture and liquid consistency recommendations., Instructed patient / caregiver on recommended compensatory strategies to maximize safety with oral intake while maintaining nutrition, hydration and medication stability. Total Treatment Time (minutes): 27 FUNCTIONAL G CODE: G Code Functional Limitations: Swallowing (11/29/17 1405) Swallow Current Status (G8996): CK - At least 40 percent but less than 60 percent impaired, limited or restricted (11/29/17 1405) Swallow Goal Status (G8997): CJ - At least 20 percent but less than 40 percent impaired, limited or restricted (11/29/17 1405) Based on clinical assessment and the score on the Functional Communication Measure (FCM), the G code and corresponding severity modifiers are documented above. SUBJECTIVE: Current Hospital Course: Chart reviewed and no significant medical updates relevant to therapy were noted Reason for Speech Therapy Consult: Assess risk for aspiration Relevant Past Medical History: TBI/Right Brain Injury, MRDD, Chronic Subdural Hematoma, Obstructive Hydrocephalus, Atrial Fibrilation, Patient Report: Patient reports he has an increased appetite. Home Environment Prior Functional Level: Required Assistance Assistance Required With: (Unable to Determine) Assistance Available: Unable to determine at this time Prior Swallowing Function/Diet Textures: Regular Consistency;Thin liquids Please see discipline specific clinical documentation flowsheet for complete details for this therapy evaluation/treatment. SIGNATURE: LEIGH Harden PATIENT NAME: Jaylene Ram DATE: November 29, 2017 TIME: 3:54 PM PAGER: [phone] [facility] Observed: 11/29/2017 Status: COMPLETED Source: [facility] 2:30 PM [facility] OTHER [place] REPOSITORY HNO ID: [id number] Author: Gisele Cortes (Rt) Service: Radiology Author Type: Sequins Winder Type: [facility] Filed: 11/29/2017 2:30 PM Note Text: Radiology Service Progress Note PATIENT NAME: Jaylene Ram DATE OF SERVICE: November 29, 2017 TIME: 2:30 PM PATIENT IDENTITY VERIFICATION COMPLETED USING TWO (2) METHODS: Patient confirmed name verbally and ID band matches.. PATIENT GENDER DATA: Male PATIENT RELEVANT IMPLANT DATA REVIEWED: Not Applicable RADIOLOGY DEPARTMENT: General X-ray: Exam(s) Completed: GI/ Procedure(s): Modified barium swallow with barium contrast PERIPHERAL IV DATA: Not applicable SIGNED BY: Augusta Jaquez November 29, 2017 2:30 PM XR MOD BARIUM Observed: 11/29/2017 Status: F Source: [facility] SWALLOW W SPEECH 2:29 PM [facility] OTHER [place] REPOSITORY * * *Final Report* * * DATE OF EXAM: Nov 29 2017 2:29PM FVX [id number] - XR MOD BARIUM SWALLOW W SPEECH / PROCEDURE REASON: Dysphagia, oropharyngeal, unexplained * * * * Physician Interpretation * * * * VIDEO SWALLOW HISTORY: dysphagia Fluoroscopic Radiation Summary: Plane A, Air Kerma: 40.5 mGy Plane B, Air Kerma: 0.0 mGy Dose Area Product (DAP): 0.0 mGy*cmS2 Fluoro time: 5:06 min:sec RESULT: Fluoroscopy was provided during performance of a swallowing evaluation by the speech pathologist. IMPRESSION: THE SPEECH PATHOLOGIST REPORT AND RECOMMENDATIONS ARE PRESENT IN THE NOTES COMPONENT OF EPIC Filler Room Attendant: DANITZA Transcribe Date/Time: Nov 29 2017 3:07P Dictated by : MARQUITA AGUILERA MD This examination was interpreted and the report reviewed and electronically signed by: MARQUITA AGUILERA MD on Nov 29 2017 3:07PM EST [id number] THERAPY NT Observed: 11/29/2017 Status: COMPLETED Source: [facility] 1:49 PM CLINIC OTHER CAMPUS REPOSITORY HNO ID: [id number] Author: Patricia Booker (Pt) Javid Service: Physical Therapy Author Type: Physical Therapist Type: Therapy (PT/OT/Speech/Resp) Filed: 11/29/2017 1:53 PM Note Text: Physical Therapy Treatment Left frontal SAH, subacute SDH SERVICE DATE: 11/29/2017 SERVICE TIME: 1327 to 1335 ROOM: [place] [address] ([facility] 12) Recommended Discharge Disposition: Subacute/SNF Justification For Post Acute Needs: Anticipate that patient will require daily (5x/wk) skilled therapy in a post-acute facility setting at the time of acute hospital discharge;May not tolerate higher intensity programing;Willing to participate;Medically complex;Living the community premorbidly;Good family support Anticipated Discharge Needs: Physical Assist at Home;Supervision at Home;Equipment Physical Assist at Home for: Transfers;Ambulation;Cleaning;Laundry;Meals;Medication Management;Stairs;Safety;Self Care;Shopping;Transportation;Finances Supervision at Home due to: Decreased safety awareness;Impaired cognition Recommended Discharge Equipment: To Be Determined PT Recommendations to Nursing: Passive lift to/from chair;With assist of 2 people Device: Hand Held Assist PT 6 Clicks Score: 10 Precautions/Activity Restrictions: Fall Risk;Lines/Tubes/Drains;Bed/Chair Alarm;Seizure Precaution/Activity Restriction Comments: reg diet; mobilize pt; c-spine cleared Isolation Type: None ASSESSMENT : Patient presents with fall resulting in SAH and SDH. Requires skilled PT for ongoing assessment of functional mobility and instruction in transfers. Patient Disposition at Start of Session: Sitter Present (sitting on EOB) Patient Disposition at End of Session: Supine in Bed Tolerated Full Session Other: See Comment (acuity of illness and impaired cognition) Physical Therapy Problem List: Cognitive Deficit;Education Deficit;Safety Deficits;Impaired Self Care;Decreased Activity Tolerance;Decreased Range Of Motion;Decreased Strength;Functional Mobility Impairment;Balance Impaired Patient /Caregiver Goals: Other: See Comment (continue to assess) Goals for Plan of Care: Able to perform HEP with: Minimal Assistance Rolling with: Moderate Assistance Transfer supine to/from sit with: Moderate Assistance Transfer sit to/from stand with: Moderate Assistance Ambulate with: Moderate Assistance Distance: 10 Device: Wheeled Walker;Other: See Comment (LRAD) Progress Toward Goals: Progressing as expected Rehab Potential: Fair PLAN: Treatment Frequency (times per week): 1;2 Current admission Treatment Interventions: Education;Self Care / Home Management;Energy Conservation Training;Joint Mobility;Strengthening;Functional Mobility Training;Balance Training Plan of Care developed with: Patient TREATMENT INTERVENTIONS: Therapy Diagnosis: Reduced mobility-other;Decreased activities of daily living (ADL);Muscle Weakness (generalized);Unsteadiness on feet Interventions Provided: Therapeutic Activity (67260) Therapeutic Activity (60977) Treatment Minutes: 8 1 unit Skilled Intervention(s): Instructed patient in log roll technique Instructed patient in supine to sit pushing with upper extremities to sit up Instructed patient in sit to supine using safe, effective technique Instruction in sit to stand technique with proper hand placement and body positioning at edge of bed/chair Instruction in stand to sit technique with lower extremities touching chair/bed and reaching back for surface Total Timed Code Treatment Minutes: 8 Total Treatment Time (minutes): 8 FUNCTIONAL G CODE: PT 6 Clicks Score: 10 (11/29/17 132) Mobility: Walking and Moving Around Current Status (G8978): CL (11/29/17 132) Mobility: Walking and Moving Around Goal Status (G8979): CK (11/29/17 132) Based on clinical assessment and the score on the 6 Clicks Functional Assessment Tool, the G code and corresponding severity modifiers are documented above. SUBJECTIVE: Current Hospital Course: Chart reviewed and no significant medical updates relevant to therapy were noted Reason for Physical Therapy Consult : mobility assessment Relevant Past Medical History: atrial fibrillation, MRDD, obstructive hydrocephalus status post HOME VISITOR HOME BASE HEAD START shunt, HTN, seizure disorder, TBI, subdural hematoma, L total hip replacement, see chart for full H Patient Report: Patient sitting on EOB with sitter in room. Cooperative with treatment, assisted onto transport cart. Home Environment Patient Lives With: Family (mother; hx obtained from chart) Assistance Available: circulation tender (mother works machined parts metal sprayer per chart) Entry To Home: Stairs;With Rail Number Of Stairs Into Home: 3 Number Of Stairs To Bed/Bath: 13 to bed in basement; bath on first floor Stairs to Bed/Bath with: Unilateral Rail Tub/Shower Type: tub shower Laundry: basement Equipment Owned: Cane;Wheeled Walker Prior Functional Level: Required Assistance Assistance Required With: Cleaning;Laundry;Meals;Medication Management;Shopping;Transportation Prior Functional Level Comments: per chart (06/2017 CM note), pt was able to perform ADLS w/ supervision, required assist w/ all IADLs OBJECTIVE: CURRENT FUNCTIONAL STATUS: Current Functional Mobility Assist Level Additional Information Rolling Supine to Sit Total Assistance (total x2) Sit to Supine Total Assistance (total x2) Scooting Moderate Assistance Sit to Stand Maximal Assistance Stand to Sit Maximal Assistance Bed to Chair Maximal Assistance Toilet/Commode Gait (unable to take steps) Stairs Curb Step Car Transfer Max assist for sit to stand transfers with manual assist for hand placement, push off and blocking of left knee to come to stance. Difficulty extending hips and knees to have both feet flat on floor in trial gait. Returned to sitting and instructed in standing pivot transfer bed to cart. Balance: Static Sitting;Dynamic Sitting;Static Standing Static Sitting Balance: Contact Guard Assistance Dynamic Sitting Balance: Maximal Assistance Static Standing Balance: Maximal Assistance Activity Tolerance: Sitting Activity Sitting Activity: transfers Sitting Activity Tolerance (in minutes): 6 Standing Activity: transfers, trial gait Standing Activity Tolerance (in minutes): 2 Please see discipline specific clinical documentation flowsheet for complete details for this therapy evaluation/treatment. SIGNATURE: Patricia Hua PT PATIENT NAME: Jaylene Ram DATE: November 29, 2017 TIME: 1:49 PM PAGER/CONTACT #: [phone] THERAPY NT Observed: 11/29/2017 Status: COMPLETED Source: [facility] 1:26 PM CLINIC OTHER CAMPUS REPOSITORY HNO ID: [id number] Author: Kamilah Bravo Service: Occupational Therapy Author Type: Occupational Therapist Type: Therapy (PT/OT/Speech/Resp) Filed: 11/29/2017 1:30 PM Note Text: Occupational Therapy Treatment SERVICE DATE: 11/29/2017 SERVICE TIME: 1305 to 1322 ROOM: [place] [address] Recommended Discharge Disposition: Subacute/SNF Justification For Post Acute Needs: Good sitting tolerance;Anticipate that patient will require daily (5x/wk) skilled therapy in a post-acute facility setting at the time of acute hospital discharge Anticipated Discharge Needs: Physical Assist at Home;Supervision at Home;Equipment Physical Assist at Home for: Transfers;Ambulation;Cleaning;Laundry;Meals;Medication Management;Stairs;Safety;Self Care;Shopping;Transportation;Finances Supervision at Home due to: Decreased safety awareness;Impaired cognition Recommended Discharge Equipment: To Be Determined OT Recommendations to Nursing: With assist of 2 people;Encourage patient participation with in-bed ADL?s OT 6 Clicks Score: 10 Precautions/Activity Restrictions: Fall Risk;Lines/Tubes/Drains;Bed/Chair Alarm;Seizure Precaution/Activity Restriction Comments: reg diet; mobilize pt; c-spine cleared Isolation Type: None ASSESSMENT: Patient Disposition at Start of Session: Supine in Bed;Sitter Present Patient Disposition at End of Session: Supine in Bed (sitter) Tolerated Full Session Physiologic Response;Fatigue Occupational Therapy Problem List: Cognitive Deficit;Education Deficit;Safety Deficits;Impaired Self Care;Decreased Activity Tolerance;Decreased Range Of Motion;Decreased Strength;Functional Mobility Impairment;Balance Impaired Patient /Caregiver Goals: (pt unable to report) Goals for Plan of Care: Feeding with: Minimal Assistance Grooming with: Moderate Assistance Upper Body Bathing with: Moderate Assistance Upper Body Dressing with: Moderate Assistance Lower Body Bathing with: Maximal Assistance Lower Body Dressing with: Maximal Assistance Toilet Hygiene with: Maximal Assistance Chair Transfer with: Maximal Assistance Toilet Transfer with: Maximal Assistance Tolerate (minutes of functional activity): 30 Functional Activity with: Maximal Assistance Increased Awareness of Cognitive Impairments as Related to ADL's/IADL's: Demonstrated Progress Toward Goals: Progressing as expected Rehab Potential: Good PLAN: Treatment Frequency (times per week): 1 Current admission Treatment Interventions: Education;Self Care / Home Management;Energy Conservation Training;Joint Mobility;Strengthening;Functional Mobility Training;Balance Training;Cognitive Training Plan of Care developed with: Patient TREATMENT INTERVENTIONS: Therapy Diagnosis: Reduced mobility-other;Decreased activities of daily living (ADL);Muscle Weakness (generalized);Signs and Symptoms Involving Cognitive Functions and Awareness;Lack of coordination-other;Unsteadiness on feet Interventions Provided: Self Penitentiary Management (87492) Self Penitentiary Management (50128) Treatment Minutes: 15 1 unit Skilled Intervention(s): Cues for sequencing in hygiene tasks . Pt able to wash his face after being assisted with meds in pudding by RN. Pt requires mod assist for thoughness along with verbal cues. Education in functional transfer safety requiring mod assist x 1 for sit to/from stand transfer (first attempt requiring max x 1. 2nd attempt requiring mod x 1) pt requires max verbal cues for posture and safety. Mod A x 2 to take steps towards HOB with mod verbal/tactile cues for safety and directionality. Pt returned to supine position for comfort with needs in reach and sitter at bedside. Total Timed Code Treatment Minutes: 15 Total Treatment Time (minutes): 17 FUNCTIONAL G CODE: OT 6 Clicks Score: 10 (11/29/17 1305) Self Care Current Status (G8987): CL (11/29/17 1305) Self Care Goal Status (G8988): CL (11/29/17 1305) Based on clinical assessment and the score on the 6 Clicks Functional Assessment Tool, the G code and corresponding severity modifiers are documented above. 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 Pt able to follow simple commands with frequent cues for safety throughout session. Home Environment Patient Lives With: Family (mother; hx obtained from chart) Assistance Available: circulation tender (mother works machined parts metal sprayer per chart) Entry To Home: Stairs;With Rail Number Of Stairs Into Home: 3 Number Of Stairs To Bed/Bath: 13 to bed in basement; bath on first floor Stairs to Bed/Bath with: Unilateral Rail Tub/Shower Type: tub shower Laundry: basement Equipment Owned: Cane;Wheeled Walker Prior Functional Level: Required Assistance Assistance Required With: Cleaning;Laundry;Meals;Medication Management;Shopping;Transportation Prior Functional Level Comments: per chart (06/2017 CM note), pt was able to perform ADLS w/ supervision, required assist w/ all IADLs OBJECTIVE: Communication Deficits: Expressive Deficits Orientation Deficits: Not oriented to Place;Not oriented to Time;Confused (able to state name only) Responsiveness: Awake Follows Commands: 1-step Commands Cueing to Follow Commands: Moderate Attention Deficits: Divided Memory Deficits: Short Term;Motorcoach Driver Executive Function Deficits: Safety Awareness;Sequencing;Problem Solving Sequencing Deficit: Maximum impairment Safety Awareness Deficit: Maximum impairment Problem Solving Deficit: Maximum impairment CURRENT FUNCTIONAL STATUS: Current Activities of Daily Living Assist Level Feeding Moderate Assistance ( ) Grooming Moderate Assistance Bathing Upper Body Maximal Assistance Bathing Lower Body Maximal Assistance Dressing Upper Body Maximal Assistance Dressing Lower Body Total Assistance Toileting Total Assistance Instrumental Activities of Daily Living Assist Level Meal/Beverage Prep Light Cleaning Laundry Medication Management with Strategies Functional Mobility Assist Level Rolling Supine to Sit Moderate Assistance ( ) Sit to Supine Scooting Total Assistance Sit to Stand Moderate Assistance Stand to Sit Moderate Assistance Bed to Chair Toilet/Commode Functional Mobility Moderate Assistance (x2) Hand Held Assist Balance: Static Standing;Dynamic Standing Static Sitting Balance: Contact Guard Assistance Dynamic Sitting Balance: Minimal Assistance Static Standing Balance: Moderate Assistance Dynamic Standing Balance: Moderate Assistance (x2) Please see discipline specific clinical documentation flowsheet for complete details for this therapy evaluation/treatment. SIGNATURE: SOFY Lance/Tim PATIENT NAME: Jaylene Ram DATE: November 29, 2017 TIME: 1:26 PM PAGER: [phone] CONSULT PROG Observed: 11/29/2017 Status: COMPLETED Source: [facility] 9:41 AM CLINIC OTHER CAMPUS REPOSITORY HNO ID: [id number] Author: Shaun Dalal Service: Psychiatry Author Type: Physician Type: Consult Progress Note Filed: 11/29/2017 1:33 PM Note Text: PSYCHIATRY CONSULT SERVICE PROGRESS NOTE STAFF NOTE SERVICE DATE: November 29, 2017 SERVICE TIME: 1:24 PM 24 HR Events:As per nursing, pt slept last night, not eating, but no longer swinging/spitting at staff. No recent bouts of agitation. ? ? In the past 24 hrs pt has received: Dilantin Paxil Abilify 2 mg Scheduled Gabapentin No PRNs given for anxiety, insomnia, or agitation Subjective Pt is a grossly poor historian Prob following simple commands such as pointing to 3 consecutive objects, but able to stick tongue out Only able to state 1/7 days of week forwards ? Slept well No hallucination No SI/HI. ? Objective Vital Signs 11/28/17 2244 11/28/17 2300 11/28/17 2315 11/29/17 0636 BP: 154/88 149/78 141/82 158/93 Pulse: 77 76 77 81 Resp: 20 Temp: 36.7 ?C (98.1 ?F) TempSrc: Axillary SpO2: 97% Weight: Height: MENTAL STATUS: Appearance: Pt is unkempt/bearded male, appearing older than stated age, lying in bed, NAD Behavior: Eye Contact: better Demeanor: Calm, but regressed Neurologic: w/o PMA/PMR, no tremors of hands, no tongue fasciculations. no cog wheeling or rigidity. no clonus. No mydriasis, diaphoresis, lacrimation, rhinorrhea, piloerection, or yawning evident. MSK: unable to assess gait Speech: Hesitant, Slowed and Monotone rhythm. Low volume. not pressured. Poor enunciations. Mood: ---. Affect: Blunted. Thought Processing: [place] Perceptual Disturbances: does not appear to be responding to stimuli Thought Content: The patient's thought content is limited and concrete. The patient demonstrates thought content that is immature to the chronological age. Suicidal or Homicidal Ideation: None expressed or evidenced Cognition: Alertness: Alert. Insight: Grossly impaired Judgment: Grossly impaired Current hospital medications: heparin 5,000 Units injection 5,000 Units SUBCUTANEOUS q 12 H ARIPiprazole 2 mg tablet (ABILIFY) 2 mg ORAL BID 9a/4p gabapentin 200 mg cap(s) (NEURONTIN) 200 mg ORAL TID 9a/1p/5p gabapentin 300 mg cap(s) (NEURONTIN) 300 mg ORAL AT BEDTIME gabapentin 400 mg cap(s) (NEURONTIN) 400 mg ORAL HS PRN gabapentin 300 mg cap(s) (NEURONTIN) 300 mg ORAL TID PRN gabapentin 300 mg cap(s) (NEURONTIN) 300 mg ORAL TID PRN LORazepam 0.5 mg injection (ATIVAN) 0.5 mg INTRAVENOUS TID PRN labetalol 5-10 mg injection (NORMODYNE) 5-10 mg INTRAVENOUS q 2 H PRN metoprolol tartrate (short acting) 25 mg tab(s) (LOPRESSOR) 25 mg ORAL q 8 H phenytoin ER (DILANTIN) cap(s) 130 mg 130 mg ORAL DAILY (8 AM) phenytoin ER 200 mg cap(s) (DILANTIN) 200 mg ORAL AT BEDTIME PARoxetine 40 mg tab(s) (PAXIL) 40 mg ORAL DAILY docusate sodium 100 mg cap(s) (COLACE) 100 mg ORAL BID LABS (pertinent): B12: 222 Dilantin 14.8 14.41>12.5/36.6>412 Chem 7 notable for K: 3.5 Ma.7 Impression/Recommendations Mr. Ram is a 47 year old male p/w multifactorial encephalopathy (2/2 fall/trauma to head, poor cognitive baseline, insomnia) superimposed on h/o significant intellectual impairments. ? Will cont scheduled Abilify to target encephalopathy, impulsivity, AND agitation. Abilify will not prolong QTc. Suspect encephalopathy will take several months in order to completely resolve; however, this will be based on tx of underlying precipitants AND pt's baseline cognitive reserve. ? Unable to assess for mood sxs given current gross confusion. Will use gabapentin tot target anxiety, insomnia, AND agitation. May consider IV Depacon for agitation; however ,concerned about interactions w/dilantin. Will only use IV ativan for severe agitation with the understanding it will worsened conclusion, reps depression, AND increase risk of paradoxical stimulatory responses. ? Not overtly manic or psychotic. No voiced SI/HI. Psych clear for dispo options ? PLAN: 1.Encephalopathy superimposed on cognitive d/o -recommend speaking to pt in VERY simple/concrete terms -would not stop Paxil given potential to cause non-life threatening sxs of w/d -cont Abilify 2 mg po bid (9+4 pm) X 14 days (12/12/17). THIS MEDICATION IS NOT INTENDED FOR DETENTION USE. -cont to cue pt gently, maintain sleep/wake cycle -minimize pain meds/anti cholinergics/sedatives (no lunesta/Ambien) as these cause delirium -No Benadryl AND NO benzoes- as this causes Encephalopathy ? 2. Anxiety + insomnia + agitation + prolonged QTc -gabapentin 200 mg po tid (9-1-5) + 300 mg po qhs -Rx at d/c -gabapentin 200 mg po tid PRN anxiety or restlessness -gabapentin 400 mg po qhs PRN insomnia -po gabapentin or IV ativan -please make sure to replete K greater than 4 AND Mg greater than 2. ? 3. Capacity -Pt currently does not have capacity to participate in medical decisions, dispo options, or leave AMA. Of note capacity is situation AND time specific. ANY physician may assess for capacity. ? 4. Dispo -psych clear for dispo options Psych s/o. Please re-consult on PRN basis. ? Tx recommendations have been communicated via EMR AND nursing. Clinical Global Impression- Severity of illness Scale Considering your total clinical experience with this particular population, how ill is the patient at this time (i.e. take into account patients? history, psychological circumstance, symptoms, behavior, impact of symptoms on functioning)? 5 = Markedly ill (intrusive symptoms, distinctly impair social/occupational function) SIGNATURE: Shaun Dalal MD, Attng PATIENT NAME: Jaylene Ram DATE: November 29, 2017 TIME: 9:41 AM PAGER/CONTACT #: [phone] NURSING PROG Observed: 11/29/2017 Status: COMPLETED Source: [facility] 9:15 AM CLINIC OTHER CAMPUS REPOSITORY HNO ID: [id number] Author: Rebecca (Rn) DERIC Fofana Service: (none) Author Type: Registered Nurse Type: Nursing Progress Note Filed: 11/29/2017 5:11 PM Note Text: Nursing Progress Note Patient Name: Jaylene Ram Patient Location: [place] [address] [address] Daily Note: 0800: Sitter at bedside, pt remains asleep/comfortable. Vitals stable. 0940: Spoke to speech therapy and they are requesting a modified barium swallow. Explained patients aggression, will request order from [employer] C[facility] MANAGER with trauma. 1000: Patient assessed, alert to self only. Angry with some care provided but much more cooperative today than I heard in report. Sitter remains at bedside. Hypertensive, medicated with IV labetalol as ordered. Lungs clear, continues to refuse telemetry. 1030: BP improved upon recheck, see VS flowsheets. 1115: Patient asking sitter for cigarette. Called patient's mother to verify that he smokes nearly 1 ppd. Page out to Troy with trauma for possible nicotine patch. 1710: Patient sitter discontinued this afternoon for improved behavior. IV ativan given at 1700 for severe agitation. Patient was refusing neurontin and all pills at that time. This note was completed by: Rebecca Fofana RN PROGRESS Observed: 11/29/2017 Status: COMPLETED Source: [facility] 8:43 AM CLINIC OTHER CAMPUS REPOSITORY O ID: [id number] Author: Troy Arce (Grocery Carrier) Luis Armando Service: Trauma Author Type: Nurse Practitioner Type: Progress Notes Filed: 11/29/2017 12:53 PM Note Text: TRAUMA PROGRESS NOTE SERVICE DATE: 11/29/2017 SERVICE TIME: 8:43 AM Subjective HISTORY (LAST 24 HOURS): pt is 47 yo male with past med hx significant for MRDD with shunt placements, (recent removal) known to [facility] de[facility]. who fell out of bed this am. Pt reported by family to have had very poor appetitie lately. Pt originally went to [facility] and had CT scan which revealed known clif hygromas and a amll Left sided SAH. Pt was a transfer to ED as a trauma 2.alert. Upon review of imaging pt found to appear to have elevation WBC and abnormal, K . Went to [facility] in [place] (Dr. Smith) to inspect out side CT scan.He is familiar with this patient. no need for neurosurgical intervention. will plan for admission to SICU with medicine on consult to manage many electrolyte issues. Getting sepsis workup. dalton placed at bedside iN ED. 2:51 PM upon revisiting pt in ED , pt has become more somnelent , opens eyes and follows commands.Now GCS score of 10 . ?appears sleepy, and not vocalizing as he was on arrival. Will plan to assess in ICU setting overnight ? 11/26/17 Pt seen this am sleeping in bed. He was very difficult to arouse and nurse said he was the same this earlier this am. When he was woken up he did not have any complaints. NSGY is on board to see him. reapeat CT scan show stable intracranial hemorrhage. Transfer To [facility] Once cleared by NSGY ? 11/27/17 Pt is awake and lying in bed this morning. Was transferred to regular nursing floor. Pt is stable. ?Patient was talkative, but unable to be understood this morning. Being seen by Neurosurgery,no acute surgical intervention with final recs pending. ? November 28, 2017 pt seen this am, will answer simple questions, reported to have been violent striking, spitting on staff at times. this has been endorsed by pt mother who cares for him at home. Given concern for mother (elderly, frail) and violent outbursts will need case management to intervene if home enviroment is safe for pt and family. Severe protein malnutrition, pt not eating here as well as reported refusal to eat at home. Nutrition on consult, will place medical consult to assist with optimization of labs, medical management. psych consult to be placed as well. blood cx negative ? November 29, 2017 pt seen this am sleeping, at times, combative. psych is on. will keep K above 4 and mag above 2 per recs. Pt is medically cleared for discharge to SNF PERTINENT ROS: NEURO: Unable to obtain due to mental status or language barrier HEENT: Unable to obtain due to mental status or language barrier NECK: Unable to obtain due to mental status or language barrier RESPIRATORY: Unable to obtain due to mental status or language barrier? CARDIOVASCULAR: Unable to obtain due to mental status or language barrier ABDOMEN: Unable to obtain due to mental status or language barrier PELVIC/PERINEAL: Unable to obtain due to mental status or language barrier BACK/SPINE: Unable to obtain due to mental status or language barrier EXTREMITIES: Unable to obtain due to mental status or language barrier Current hospital medications: ARIPiprazole 2 mg tablet (ABILIFY) 2 mg ORAL BID 9a/4p gabapentin 200 mg cap(s) (NEURONTIN) 200 mg ORAL TID 9a/1p/5p gabapentin 300 mg cap(s) (NEURONTIN) 300 mg ORAL AT BEDTIME gabapentin 400 mg cap(s) (NEURONTIN) 400 mg ORAL HS PRN gabapentin 300 mg cap(s) (NEURONTIN) 300 mg ORAL TID PRN gabapentin 300 mg cap(s) (NEURONTIN) 300 mg ORAL TID PRN LORazepam 0.5 mg injection (ATIVAN) 0.5 mg INTRAVENOUS TID PRN labetalol 5-10 mg injection (NORMODYNE) 5-10 mg INTRAVENOUS q 2 H PRN metoprolol tartrate (short acting) 25 mg tab(s) (LOPRESSOR) 25 mg ORAL q 8 H phenytoin ER (DILANTIN) cap(s) 130 mg 130 mg ORAL DAILY (8 AM) phenytoin ER 200 mg cap(s) (DILANTIN) 200 mg ORAL AT BEDTIME PARoxetine 40 mg tab(s) (PAXIL) 40 mg ORAL DAILY docusate sodium 100 mg cap(s) (COLACE) 100 mg ORAL BID Objective ASSESSMENT: BP 158/93 Pulse 81 Temp (Src) 98.1 (Axillary) Resp 20 Ht 5' 5.984 (1.68m) Wt 101 lb 6.6 oz (46.0kg) SpO2 97% BMI 16.38 kg/(m2). Genl: ?Appears age appropriate. ?No acute distress. ?Resting comfortably. Head/Face: Normocephalic. ?Atraumatic. Post cranial surgery scars Eyes: ??EOMI. ?Sclera not icteric ENMT: ?TMs clear. ?External auditory canals clear. ?Oropharynx is clear. ?Nasopharynx is clear. Neck: ?C-spine non-tender. Back: ?T AND?L Spine non-tender, no step-offs noted. ?No flank tenderness. Chest:???Breathing is non-labored. GI: ?Abdomen is soft, non-tender, not distended. ?Bowel sounds normal. ?No peritonitis. MSK: ?Extremities without clubbing, cyanosis, edema. ?Normal ROM x 4. Skin: ?Warm and dry. ?No lesions of concern. ?Not jaundiced. ?No abrasions/contusions. Neuro: AANDOx3. ?Baseline RUE deficit. ?No cerebellar signs Psych: Talkative but difficult to understand this morning. DATA: Labs: Recent Labs 11/29/17 0717 11/28/17 1519 11/27/17 0638 WBC -- 15.94* 17.72* HB -- 12.7* 11.8* HCT -- 35.9* 35.6* PLT -- 410* 372 NA 133* 136 -- K 3.5 3.3* -- CHLOR 95* 95* -- CO2 25 28 -- CREAT 0.35* 0.39* -- P 2.6 -- -- BUN 11 13 -- GLUC 98 116* -- MG 1.7 -- -- CA 8.6 8.7 -- Assessment/Plan ACTIVE PROBLEM LIST Htn (Hypertension) Obstructive Hydrocephalus Ht (Hammer Toe) Hallux Valgus (Acquired) Postop Check Gait Disorder Ulcer of Other Part of Foot Osteopenia Fixation Hardware in Foot Seizure Disorder (Hcc) Ulcer of Toe of Right Foot (Hcc) Surgical Follow-Up Care Ingrown Toenail Shunt Malfunction Blurry Vision, Left Eye Vision Loss Tbi (Traumatic Brain Injury) (Hcc) Sah (Subarachnoid Hemorrhage) (Hcc) Severe Protein-Calorie Malnutrition (Hcc) Medication and Non-Pharmacologic VTE Prophylaxis/Anticoagulants 11/26/17 1030 activity - mobilize patient (vt,oh) 11/25/17 1600 vte pharmacologic prophylaxis contraindicated (vt,oh) 11/25/17 1600 pneumatic compression stockings (vt,oh) 11/25/17 1600 activity - mobilize patient (vt,oh) VTE Prophylaxis: VTE prophylaxis appropriate start Sub Q Heparin BID A/P Right temporal contusion Right shoulder abrasion Small left SAH- stable on repeat CT 11/26 Neurosurgery consult- no acute surgical intervention severe protein calorie malnutrition nutrition consult speech language consult- dysphagia level 2 , thin liquids will attempt to get modified barium swallow violent out bursts have been norm at home enviroment lately- escalation recent psych consult Keep K above 4.0 and Mag above 2.0 per psych Pt, ot, Case management - SNF Needs pre cert medically cleared for discharge ? SIGNATURE: Troy Durán APRN.EXPLOSIVE OPERATOR SUPERVISOR PATIENT NAME: Jaylene Ram DATE: November 29, 2017 TIME: 8:43 AM PAGER/CONTACT #: [phone] cell CASE MANAGEM Observed: 11/29/2017 Status: COMPLETED Source: [place] 8:39 AM [facility] OTHER CAMPUS REPOSITORY HNO ID: [id number] Author: Magy Malone (Sw) Service: Care Management Author Type: Recycling Assistant Type: Care Mgt Progress Note Filed: 11/29/2017 11:21 AM Note Text: CARE MANAGEMENT PROGRESS NOTE SERVICE DATE: 11/29/2017 SERVICE TIME: 8:39 AM LOS: 4 days FREEDOM OF CHOICE GIVEN: Yes FOC provided to pt's mom Dot Financial Disclosure Provided The patient and/or family has been given the Provider List: Yes Provider List: Snf Facility Preference: [facility] CÉSAR called pt's mom Dot, to inform of recommendation for pt to go to SNF. Dot agreeable to SNF placement. CÉSAR provided FOC to dot who sts preference as [facility], [facility] or [facility]. Dot gave permission for [facility] to transport at [place]. CÉSAR will send referrals. Pt will need pre cert for SNF. ADDENDUM 11:20AM: CÉSAR called pt's Insurance [employer] Mary [phone] and informed of plan for SNF placement. Mary requesting p/c at time of DC. SIGNATURE: TONI Gates PATIENT NAME: Jaylene Ram DATE: November 29, 2017 TIME: 8:39 AM PAGER/CONTACT #: [phone] BASIC METABOLIC PANL Collected: 11/29/2017 Status: F Source: [facility] 7:17 AM CLINIC OTHER CAMPUS REPOSITORY TYPE CODE TESTS RESULT OUT OF REFERENCE UNITS RANGE LAB GLU 65-100 mg/dL Glucose 98 LAB BUN 10-25 mg/dL BUN 11 LAB CRET 0.70-1.40 mg/dL Low Creatinine 0.35 LAB NA 135-146 mmol/L Low Sodium 133 LAB K 3.5-5.0 mmol/L Potassium 3.5 LAB CL 98-110 mmol/L Low Chloride 95 LAB CO2 23-32 mmol/L CO2 25 LAB AGAP 9-18 mmol/L Anion Gap 13 LAB CA 8.5-10.5 mg/dL Calcium, Total 8.6 LAB GFRAA >60 eGFR- >60 Amer. LAB GFRNAA >60 . eGFR-All Other Races >60 Performed By: #### BMP, MG1, PHOS, CBCDIF #### [place] [phone] MAGNESIUM Collected: 11/29/2017 Status: F Source: [place] 7:17 AM [facility] OTHER [place] REPOSITORY TYPE CODE TESTS RESULT OUT OF REFERENCE UNITS RANGE LAB MG 1.7-2.6 mg/dL Magnesium 1.7 Performed By: #### BMP, MG1, PHOS, CBCDIF #### [place] [address] PHOSPHORUS Collected: 11/29/2017 Status: F Source: [facility] 7:17 AM [facility] OTHER [facility] REPOSITORY TYPE CODE TESTS RESULT OUT OF REFERENCE UNITS RANGE LAB PHOS 2.5-4.5 mg/dL Phosphorus 2.6 Performed By: #### BMP, MG1, PHOS, CBCDIF #### [place] [address] CBC AND DIFFERENTIAL Collected: 11/29/2017 Status: F Source: [facility] 7:17 AM CLINIC OTHER [facility]US REPOSITORY TYPE CODE TESTS RESULT OUT OF REFERENCE UNITS RANGE LAB WBC 3.70-11.00 k/uL WBC High 14.41 LAB RBC 4.20-6.00 m/uL Low RBC 4.00 LAB HGB 13.0-17.0 g/dL Low Hemoglobin 12.5 LAB HCT 39.0-51.0 % Low Hematocrit 36.6 LAB MCV 80.0-100.0 fL MCV 91.5 LAB MCH 26.0-34.0 pG MCH 31.3 LAB MCHC 30.5-36.0 g/dL MCHC 34.2 LAB RDWCV 11.5-15.0 % RDW-CV 12.7 LAB PLTCT 150-400 k/uL Platelet High Count 412 LAB MPV 9.0-12.7 fL MPV 9.5 LAB NEUTS % Neut% 71.1 LAB AANEUT 1.45-7.50 k/uL Abs Neut High 10.24 LAB LYMPHS % Lymph% 16.0 LAB AALYMP 1.00-4.00 k/uL Abs Lymph 2.31 LAB MONOS % [place]% 11.2 LAB AAMONO <0.87 k/uL Abs [place] High 1.61 LAB EOS % Eosin% 1.5 LAB AAEOS <0.46 k/uL Abs Eosin 0.22 LAB BASOS % Baso% 0.2 LAB AABASO <0.11 k/uL Abs Baso 0.03 LAB DTYP DTYPE Auto Diff Performed By: #### BMP, MG1, PHOS, CBCDIF #### [place] [address] NURSING PROG Observed: 11/28/2017 Status: COMPLETED Source: [facility] 7:33 PM [facility] REPOSITORY HNO ID: [id number] Author: Yajaira (Rn) DERIC Anaya Service: ASSESSMENT Author Type: Registered Nurse Type: Nursing Progress Note Filed: 11/28/2017 10:41 PM Note Text: Nursing Progress Note Patient Name: Jaylene Ram Patient Location: [facility]/ Daily Note: 1935. Labs back. Potassium 3.3. General surgery paged. Awaiting orders. 2013 25 mg scheduled metropolol given. Pt refuses other medications. He is cussing and kicking towards RN. Will try again later. wctm. 2014 Dr Paula Bustillos put orders for 20 mEq Po potassium. 7 Potassium given. 2224. 10 mg of labetalol IV given for BP 174/92. Will check the BP in 15 min. This note was completed by: Yajaira Anaya RN NURSING PROG Observed: 11/28/2017 Status: COMPLETED Source: [facility] 6:46 PM [facility] REPOSITORY HNO ID: [id number] Author: Tesha Luna) DERIC Montes Service: (none) Author Type: Registered Nurse Type: Nursing Progress Note Filed: 11/28/2017 6:53 PM Note Text: Nursing Progress Note Patient Name: Jaylene Ram Patient Location: [place] [address]/[facility]-15 Daily Note: Oriented to self only, sitter at bedside for safety. Pt agitated, combative, resistant to care; hitting, kicking, and using profanity towards staff. Refused tele, removes tele box and leads continuously. Medicated with PRN gabapentin for agitation. This note was completed by: TESHA MONTES RN CONSULT PROG Observed: 11/28/2017 Status: COMPLETED Source: [facility] 3:52 PM [facility] REPOSITORY HNO ID: [id number] Author: Braden Phillips Service: Neurosurgery Author Type: Physician Candy Catcher Type: Consult Progress Note Filed: 11/29/2017 9:34 AM Note Text: Attestation signed by Holly Smith at 11/29/2017 1:36 PM Holly Smith MD PROGRESS NOTE NEUROSURGERY SERVICE DATE: 11/28/2017 SERVICE TIME: 350 pm Subjective INTERVAL HPI No new c/o. Current hospital medications: ARIPiprazole 2 mg tablet (ABILIFY) 2 mg ORAL BID 9a/4p gabapentin 200 mg cap(s) (NEURONTIN) 200 mg ORAL TID 9a//5p gabapentin 300 mg cap(s) (NEURONTIN) 300 mg ORAL AT BEDTIME gabapentin 400 mg cap(s) (NEURONTIN) 400 mg ORAL HS PRN gabapentin 300 mg cap(s) (NEURONTIN) 300 mg ORAL TID PRN gabapentin 300 mg cap(s) (NEURONTIN) 300 mg ORAL TID PRN LORazepam 0.5 mg injection (ATIVAN) 0.5 mg INTRAVENOUS TID PRN labetalol 5-10 mg injection (NORMODYNE) 5-10 mg INTRAVENOUS q 2 H PRN metoprolol tartrate (short acting) 25 mg tab(s) (LOPRESSOR) 25 mg ORAL q 8 H phenytoin ER (DILANTIN) cap(s) 130 mg 130 mg ORAL DAILY (8 AM) phenytoin ER 200 mg cap(s) (DILANTIN) 200 mg ORAL AT BEDTIME PARoxetine 40 mg tab(s) (PAXIL) 40 mg ORAL DAILY docusate sodium 100 mg cap(s) (COLACE) 100 mg ORAL BID Objective Awake and alert Moving UE spontaneously and purposefully Face symmetric Speech clear EOMI VITAL SIGNS 24 HOUR REVIEW: Patient Vitals for the past 24 hrs: BP Temp Temp src Pulse Resp SpO2 11/28/17 1141 138/88 37.2 ?C (99 ?F) Oral 82 16 97 % 11/28/17 0741 118/82 36.6 ?C (97.9 ?F) Oral 83 16 99 % 11/28/17 0400 126/84 36.6 ?C (97.9 ?F) Temporal Art 78 16 99 % 11/28/17 0005 122/76 36.5 ?C (97.7 ?F) Temporal Art 77 16 98 % 11/27/17 2330 125/74 - - - - - 11/27/17 2305 148/82 - - - - - 11/27/17 2245 182/89 37.9 ?C (100.2 ?F) Oral 82 16 97 % 11/27/17 2000 165/86 36.3 ?C (97.4 ?F) Oral 89 16 98 % 11/27/17 1557 141/87 - - - - - LABS: CBC, Coags, BMP, Mg, Phos Recent Labs 11/28/17 1519 11/27/17 0638 11/26/17 0616 WBC 15.94* 17.72* 18.48* HB 12.7* 11.8* 11.7* HCT 35.9* 35.6* 35.1* PLT 410* 372 383 NA -- -- 141 K -- -- 3.0* CHLOR -- -- 99 CO2 -- -- 30 BUN -- -- 14 CREAT -- -- 0.43* GLUC -- -- 92 CA -- -- 8.2* DATA: Diagnostic tests reviewed for today's visit: Most recent labs and imaging results. Assessment/Plan Active Problems: SAH (subarachnoid hemorrhage) ([facility]) POA: Yes Assessment AND Plan: Repeat CT done Resulted as: No significant change noted of moderate sized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 Moderate Assistance Lower Body Bathing with: Maximal Assistance Lower Body Dressing with: Maximal Assistance Toilet Hygiene with: Maximal Assistance Chair Transfer with: Maximal Assistance Toilet Transfer with: Maximal Assistance Tolerate (minutes of functional activity): 30 Functional Activity with: Maximal Assistance Increased Awareness of Cognitive Impairments as Related to ADL's/IADL's: Demonstrated Rehab Potential: Fair PLAN: Treatment Frequency (times per week): 1 Current admission Treatment Interventions: Education;Self Care / Home Management;Energy Conservation Training;Joint Mobility;Strengthening;Functional Mobility Training;Balance Training;Cognitive Training Plan of Care developed with: Patient TREATMENT INTERVENTIONS: Therapy Diagnosis: Reduced mobility-other;Decreased activities of daily living (ADL);Muscle Weakness (generalized);Signs and Symptoms Involving Cognitive Functions and Awareness;Lack of coordination-other;Unsteadiness on feet Interventions Provided: Evaluation;Self Penitentiary Management (56202) $ Evaluation-Moderate (92238) Billed Units: 1 unit Self Penitentiary Management (90353) Treatment Minutes: 8 1 unit Skilled Intervention(s): Provided cuing for hand hygiene . Pt requires max assist for hand hygiene (dried blood on hands) to wash bilateral UEs using wash cloth with set up. Pt requires max verbal cues for performance and thoroughness. Cues for sequencing in hygiene tasks . Pt requires max verbal/tactile cues for washing his face following emesis at end of session. Pt requires max verbal/tactile cues for safety and thoroughness. Pt also requires assist with holding emesis basin. RN notified and aware. Pt requires max verbal/tactile cues for command following and safety during session. Total assist required for transfers at this time with max cues for safety and technique. Vitals monitored and remaining stable throughout session. Bed alarm re-engaged. Total Timed Code Treatment Minutes: 8 Total Treatment Time (minutes): 25 FUNCTIONAL G CODE: OT 6 Clicks Score: 10 (11/26/17 1115) Self Care Current Status (G8987): CL (11/26/17 1115) Self Care Goal Status (G8988): CL (11/26/17 1115) Based on clinical assessment and the score on the 6 Clicks Functional Assessment Tool, the G code and corresponding severity modifiers are documented above. 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 Limited verbalizations this date; pt poor historian. Home Environment Patient Lives With: Family (mother; hx obtained from chart) Assistance Available: circulation tender (mother works machined parts metal sprayer per chart) Entry To Home: Stairs;With Rail Number Of Stairs Into Home: 3 Number Of Stairs To Bed/Bath: 13 to bed in basement; bath on first floor Stairs to Bed/Bath with: Unilateral Rail Tub/Shower Type: tub shower Laundry: basement Equipment Owned: Cane;Wheeled Walker Prior Functional Level: Required Assistance Assistance Required With: Cleaning;Laundry;Meals;Medication Management;Shopping;Transportation Prior Functional Level Comments: per chart, pt was able to perform ADLS w/ supervision, required assist w/ all IADLs OBJECTIVE: Communication Deficits: Expressive Deficits Orientation Deficits: Not oriented to Person;Not oriented to Place;Not oriented to Time;Confused (difficulty to assess 2* expressive deficits) Responsiveness: Awake Follows Commands: 1-step Commands;Cueing Needed (intermittent) Cueing to Follow Commands: Maximum Attention Deficits: Divided Memory Deficits: Short Term;Senior Living Executive Function Deficits: Safety Awareness;Sequencing;Problem Solving Sequencing Deficit: Maximum impairment Safety Awareness Deficit: Maximum impairment Problem Solving Deficit: Maximum impairment CURRENT FUNCTIONAL STATUS: Current Activities of Daily Living Assist Level Feeding (n/a) Grooming Maximal Assistance Bathing Upper Body Maximal Assistance Bathing Lower Body Maximal Assistance Dressing Upper Body Maximal Assistance Dressing Lower Body Total Assistance Toileting Total Assistance Instrumental Activities of Daily Living Assist Level Meal/Beverage Prep Light Cleaning Laundry Medication Management with Strategies Functional Mobility Assist Level Rolling Supine to Sit Total Assistance (x2) Sit to Supine Scooting Total Assistance Sit to Stand Total Assistance Stand to Sit Total Assistance Bed to Chair Toilet/Commode Functional Mobility Balance: Static Sitting;Dynamic Sitting Static Sitting Balance: Contact Guard Assistance Dynamic Sitting Balance: Minimal Assistance Please see discipline specific clinical documentation flowsheet for complete details for this therapy evaluation/treatment. SIGNATURE: SOFY Lance/Tim PATIENT NAME: Jaylene Ram DATE: November 26, 2017 TIME: 2:58 PM PAGER: [phone] THERAPY NT Observed: 11/26/2017 Status: COMPLETED Source: [place] 2:52 PM [facility] REPOSIT[facility] HNO ID: [id number] Author: Ammy (Auto Body Repair Teacher) MANSI Collier/MATERIALS MANAGEMENT MANAGER Service: Speech/Swallow Author Type: Speech Language Pathologist Type: Therapy (PT/OT/Speech/Resp) Filed: 11/26/2017 4:13 PM Note Text: Speech Therapy Clinical Swallow Evaluation SERVICE DATE: 11/26/2017 SERVICE TIME: 1354 to 1432 ROOM: [id number] Nursing Recommendations: Reinforce use of swallowing strategies;Simplify commands to 1 step;Reinforce use of white board in room Diet Recommendations: Dysphagia Level 1 (Pureed);Thin liquids Swallowing Precautions Recommendations: ? Feed / Eat at a slow rate; ? Limit Distractions; ? Maintain an upright position 20-30 minutes following all oral intake; ? Medications whole in puree; ? Oral Care before and after meals; ? Sit upright 90 degrees for all PO; ? Small Bite/Sip; ? Supervision/Assistance for meals.; ? Check oral cavity for remaining food; ? Pulmonary monitoring; ? Supplemental nutrition may be needed for adequate oral intake Results and Recommendations Discussed With: Patient;Nurse Recommended Discharge Disposition: Subacute/SNF (Pending tolerance to diet) Justification For Post Acute Needs: Community discharge potential unknown;Functional status improvement unknown;Living the community premorbidly;May not tolerate higher intensity programing IMPRESSION: Patient demonstrates clinical indications of possible pharyngeal dysphagia which is negatively impacting his/her ability to effectively maintain adequate nutrition and hydration and/or airway safety. Patient was unable to successfully complete 3 oz water assessment as noted by incompletion of the full volume and immediate cough post swallow. Patient tolerated additional trials of puree as well small single sips of thin liquid without overt signs and symptoms of dysphagia. However, when presented with a solid (mable cracker), patient began to masticate, but spit food out noting that's disgusting. When offered a variety of solid food options, patient refused all items yet accepted puree consistencies each time they were offered. Patient would at times perseverate the physical action of eating without having food items in hand. Of note, patient required frequent repositioning throughout assessment in order to remain upright when receiving PO intake. On one ocasion patient produced small emesis following repositioning. Due to severity of patient's cognitive deficits, assessment was limited. Based on today's assessment, patient may be at risk for aspiration. Recommend close supervision to help ensure strict adherence to swallowing precautions, diet modification, and on going monitoring of swallow function in order to determine if a modified barium swallow study may be necessary in order to further assess swallow function. Rehabilitation Precautions: Modified Diet;Aspiration Precautions;Cognitive Linguistics Deficits Precaution/Activity Restriction Comments: reg diet; mobilize pt; c-spine cleared ASSESSMENT: Tolerance Limited By Cooperation Goals for Plan of Care: Swallow Goals: --Patient will tolerate Dysphagia Level 1 (Pureed), Thin Liquids diet consistency while utilizing compensatory/swallowing strategies given rare, minimal cues in 90% of trials so that the patient will minimize the signs/symptoms of dysphagia. --Patient, Family will demonstrate adequate return of knowledge of all compensatory strategies/instruction to effectively assist the patient in immediate safety with oral intake and swallowing. Patient /Caregiver Goals: (unable to state) Rehab Potential: Fair PLAN: Treatment Frequency (times per week): 2 Current admission Treatment Interventions: Dysphagia Management Plan of Care Developed with: Patient;Caregiver (RN) TREATMENT INTERVENTIONS: Therapy Diagnosis: Dysphagia, unspecified Interventions Provided: Clinical Swallow Evaluation (47779) $ Clinical Swallow Evaluation (74628) Billed Units: 1 unit Total Treatment Time (minutes): 38 FUNCTIONAL G CODE: G Code Functional Limitations: Swallowing (11/26/17 1354) Swallow Current Status (G8996): CK - At least 40 percent but less than 60 percent impaired, limited or restricted (11/26/17 1354) Swallow Goal Status (G8997): CJ - At least 20 percent but less than 40 percent impaired, limited or restricted (11/26/17 1354) Based on clinical assessment and the score on the Functional Communication Measure (FCM), the G code and corresponding severity modifiers are documented above. SUBJECTIVE: Current Hospital Course: Chart reviewed; 47 year old male presented to the hospital after falling out of bed with diagnosis of subarachnoid hemorrhage. Reason for Speech Therapy Consult: Assess risk for aspiration Relevant Past Medical History: TBI/Right Brain Injury, MRDD, Chronic Subdural Hematoma, Obstructive Hydrocephalus, Atrial Fibrilation, Patient Report: Due to to severity of patient's cognitive deficits, patient served as a poor historian for medical information. Patient appeared frustrated and agitated noting I want to get out of bed. Home Environment Prior Functional Level: Required Assistance Assistance Required With: (Unable to Determine) Assistance Available: Unable to determine at this time Prior Swallowing Function/Diet Textures: Regular Consistency;Thin liquids Please see discipline specific clinical documentation flowsheet for complete details for this therapy evaluation/treatment. SIGNATURE: Trice Colin MATERIALS MANAGEMENT MANAGER-Graduate Clinician PATIENT NAME: Jaylene Ram DATE: November 26, 2017 TIME: 2:53 PM PAGER: [phone] I reviewed and agree with the documentation corresponding to this therapy visit. SIGNATURE: Ammy Collier MA, CCC-MATERIALS MANAGEMENT MANAGER, BCS-S DATE: November 26, 2017 TIME: 4:12 PM NUTRITION Observed: 11/26/2017 Status: COMPLETED Source: [place] 2:39 PM [facility] REPOSITORY [facility] ID: [id number] Author: Daphne Paz Service: Nutrition Therapy Author Type: Registered Dietitian Type: Nutrition Filed: 11/26/2017 2:53 PM Note Text: NUTRITION THERAPY INITIAL ASSESSMENT SERVICE DATE: 11/26/2017 SERVICE TIME: 2:39 PM RECOMMENDED MALNUTRITION DIAGNOSIS: SEVERE PROTEIN-CALORIE MALNUTRITION In the context of Chronic Illness or Injury based on: Unintentional Weight Loss: >10% in 6 months Subcutaneous Fat Loss: Severe Loss Muscle Loss Severe Loss NUTRITION CARE PLAN: Problem, Etiology and Signs/Symptoms: Increased nutrient needs calorie/protein related to malnutrition as evidenced by subcutaneous fat and muscle severely depleted Intervention: Ensure Enlive TID Monitor and Evaluation: Goal: Meet >75% of estimated needs Monitor fluid/electrolyte balance Monitor labs, I/Os, vital signs, weight Discharge Nutrition Recommendations: To be determined Per HPI: 47 year old male with hx of MRDD s/p fall on the morning of 11/24 who presented as a Trauma 2 from [facility] with known SAH. Present Diet Order: Regular Enteral Access: NONE Nutritional Intake Prior to Admission: Unable to determine - pt is a poor historian and mother not available GI symptoms: unable to determine at this time Abdominal Exam: abdomen is soft and bowel sounds are normal Is the patient having any pain that is interfering with oral/enteral intake? No ANTHROPOMETRICS Height: 167.6 cm (5' 5.98) Admission Weight: 44.9 kg (98 lb 15.8 oz) Current Weight: 44.9 kg (98 lb 15.8 oz) Body mass index is 15.98 kg/m?. underweight Weight has decreased by 5 kg over 5 months representing 10 % weight change. Last Wt 11/25/17 : 44.9 kg (98 lb 15.8 oz) 07/16/17 : 49.9 kg (110 lb) 04/10/17 : 49.9 kg (110 lb) 10/08/16 : 46.9 kg (103 lb 6.4 oz) 09/27/16 : 46.6 kg (102 lb 11.2 oz) 09/21/16 : 49.9 kg (110 lb) 09/15/16 : 50.5 kg (111 lb 5.3 oz) 09/15/16 : 49.9 kg (110 lb) 08/29/16 : 49.9 kg (110 lb) 04/09/16 : 51.1 kg (112 lb 9.6 oz) 11/25/15 : 53.1 kg (117 lb) 09/30/15 : 54 kg (119 lb) 09/30/15 : 48.5 kg (107 lb) 06/07/15 : 49.9 kg (110 lb) 05/05/15 : 48.5 kg (107 lb) 04/14/15 : 48.8 kg (107 lb 9.6 oz) 03/16/15 : 46.1 kg (101 lb 9.6 oz) 05/28/14 : 49.9 kg (110 lb) 04/28/14 : 44.5 kg (98 lb) 04/23/14 : 44.7 kg (98 lb 9.6 oz) Dosing Weight: 45 kg Resting Metabolic Rate: 1259 Estimated kilocalorie needs: 9789-7279 kilocalories determined by 35-40 kcal/kg Estimated protein needs: 58-77 grams determined by 1.3-1.7 g/kg Dosing weight Estimated fluid needs: 2809-6777 milliliters based on 1 mL per kcal NUTRITION FOCUSED PHYSICAL EXAM: Subcutaneous Fat Loss Orbital Severe Triceps Severe Mid-axillary at the iliac crest Unable to determine at this time Muscle Loss Locations: Temporalis Severe Pectoralis Severe Deltoids Severe Interosseous Severe Latissimus dorsi, trapezius Severe Quadriceps Severe Gastrocnemius Severe Potential micronutrient deficiency revealed in: Skin - poor turgor Edema: No Ascites: No Assessment of Functional Status: Unable to determine at this time Temperature Max in 24 hours: Temp (24hrs), Av.8 ?C (98.2 ?F), Min:36.5 ?C (97.7 ?F), Max:37.1 ?C (98.8 ?F) BP 172/98 Pulse 89 Temp 36.5 ?C (97.7 ?F) (Oral) Resp 17 Ht 167.6 cm (5' 5.98) Wt 44.9 kg (98 lb 15.8 oz) SpO2 97% BMI 15.98 kg/m? Recent Labs 11/26/17 0616 11/25/17 1239 GLUC 92 -- 110* BUN 14 -- 10 CREAT 0.43* < > 0.44* NA 141 -- 139 K 3.0* -- 2.7* CHLOR 99 -- 92* CO2 30 -- 33* ALB -- -- 3.9 HB 11.7* -- 14.1 HCT 35.1* -- 41.1 WBC 18.48* -- 18.29* MG -- -- 1.8 < > = values in this interval not displayed. Potential Signs of Inflammation: leukocytosis ALLERGIES No Known Allergies Current Facility-Administered Medications: NaCl 0.9% IV bolus 1,000 mL 1,000 mL INTRAVENOUS ONCE metoprolol tartrate (short acting) 25 mg tab(s) (LOPRESSOR) 25 mg ORAL q 8 H phenytoin ER (DILANTIN) cap(s) 130 mg 130 mg ORAL DAILY (8 AM) phenytoin ER 200 mg cap(s) (DILANTIN) 200 mg ORAL AT BEDTIME PARoxetine 40 mg tab(s) (PAXIL) 40 mg ORAL DAILY docusate sodium 100 mg cap(s) (COLACE) 100 mg ORAL BID NaCl 0.9% with 20 mEq/L KCl iv infusion 75 mL/hr INTRAVENOUS CONTINUOUS labetalol 5 mg injection (NORMODYNE) 5 mg INTRAVENOUS q 2 H PRN Intake/Output 11/24/17 07 - 11/25/17 0659 11/25/17 07 - 11/26/17 0659 11/26/17 07 - 11/27/17 0659 Intake (ml) -- 2072 0 Output (ml) 0 235 575 Net (ml) 0 1837 -575 MNT Billing Type: Initial Assess/15 min 4 units SIGNATURE: Daphne Paz RD, LD PATIENT NAME: Jaylene Ram DATE: November 26, 2017 TIME: 2:39 PM PAGER: [phone] For further assistance and weekends please page the Group Pager [phone] THERAPY NT Observed: 11/26/2017 Status: COMPLETED Source: [place] 1:45 PM [facility] REPOSITORY HNO ID: [id number] Author: Dov Moreno (Pt) Vito Service: Physical Therapy Author Type: Physical Therapist Type: Therapy (PT/OT/Speech/Resp) Filed: 11/26/2017 4:49 PM Note Text: Physical Therapy Evaluation SERVICE DATE: 11/26/2017 SERVICE TIME: 1115 to 1140 ROOM: [place] [address] Recommended Discharge Disposition: Subacute/SNF Justification For Post Acute Needs: Anticipate that patient will require daily (5x/wk) skilled therapy in a post-acute facility setting at the time of acute hospital discharge;May not tolerate higher intensity programing;Willing to participate;Medically complex;Living the community premorbidly;Good family support Anticipated Discharge Needs: Physical Assist at Home;Supervision at Home;Equipment Physical Assist at Home for: Transfers;Ambulation;Cleaning;Laundry;Meals;Medication Management;Stairs;Safety;Self Care;Shopping;Transportation;Finances Supervision at Home due to: Decreased safety awareness;Impaired cognition Recommended Discharge Equipment: To Be Determined PT Recommendations to Nursing: Sit at edge of bed;With assist of 2 people PT 6 Clicks Score: 6 Precautions/Activity Restrictions: Fall Risk;Lines/Tubes/Drains;Bed/Chair Alarm;Seizure Precaution/Activity Restriction Comments: reg diet; mobilize pt; c-spine cleared ASSESSMENT : 47 y/o male patient admitted to hospital following a fall with diagnosis of L frontal subarachnoid hemorrhage and subacute SDH. Pt presents with impaired functional mobility, balance, safety, self-care, cognition, decreased strength, ROM, and activity tolerance. Pt required total assist for all bed mobility and transfers. Limited mobility due to nausea and emesis. RN notified. Pt was a poor historian and was unable to communicate any social hx. Per chart, pt lives with his mother at home, who assists him with all IADLs and some ADL's. Pt requires continued assessment on hx and mobility. Based on the patient's functional mobility, I would recommend a SNF to progressively improve overall mobility, independence, and return to PLOF. Patient Disposition at Start of Session: Supine in Bed Patient Disposition at End of Session: Supine in Bed;Call Mcnair in Reach Tolerance Limited By Other: See Comment (acuity of illness and impaired cognition) Physical Therapy Problem List: Cognitive Deficit;Education Deficit;Safety Deficits;Impaired Self Care;Decreased Activity Tolerance;Decreased Range Of Motion;Decreased Strength;Functional Mobility Impairment;Balance Impaired Patient /Caregiver Goals: Other: See Comment (continue to assess) Goals for Plan of Care: Able to perform HEP with: Minimal Assistance Rolling with: Moderate Assistance Transfer supine to/from sit with: Moderate Assistance Transfer sit to/from stand with: Moderate Assistance Ambulate with: Moderate Assistance Distance: 10 Device: Wheeled Walker;Other: See Comment (LRAD) Rehab Potential: Fair PLAN: Treatment Frequency (times per week): 1;2 Current admission Treatment Interventions: Education;Self Care / Home Management;Energy Conservation Training;Joint Mobility;Strengthening;Functional Mobility Training;Balance Training Plan of Care developed with: Patient TREATMENT INTERVENTIONS: Therapy Diagnosis: Reduced mobility-other;Decreased activities of daily living (ADL);Muscle Weakness (generalized);Unsteadiness on feet Interventions Provided: Evaluation;Therapeutic Activity (55322) $ Evaluation-High (16131) Billed Units: 1 unit Therapeutic Activity (38598) Treatment Minutes: 8 1 unit Skilled Intervention(s): Instructed patient in supine to sit pushing with upper extremities to sit up Instructed patient in sit to supine using safe, effective technique Instruction in sit to stand technique with proper hand placement and body positioning at edge of bed/chair Instruction in stand to sit technique with lower extremities touching chair/bed and reaching back for surface Pt stood for 2 minutes with total assist for strengthening, functional mobility, and activity tolerance. Pt positioned for comfort in bed with call mcnair in reach. Managed patient's lines throughout session. Total Timed Code Treatment Minutes: 8 Total Treatment Time (minutes): 25 FUNCTIONAL G CODE: PT 6 Clicks Score: 6 (11/26/17 1115) Mobility: Walking and Moving Around Current Status (G8978): CN (11/26/17 1115) Mobility: Walking and Moving Around Goal Status (G8979): CM (11/26/17 1115) Based on clinical assessment and the score on the 6 Clicks Functional Assessment Tool, the G code and corresponding severity modifiers are documented above. SUBJECTIVE: Current Hospital Course: Chart reviewed; Pt admitted to hospital following a fall out of bed Reason for Physical Therapy Consult : mobility assessment Relevant Past Medical History: atrial fibrillation, MRDD, obstructive hydrocephalus status post HOME VISITOR HOME BASE HEAD START shunt, HTN, seizure disorder, TBI, subdural hematoma, L total hip replacement, see chart for full PMH Patient Report: Pt agreeable to participate in therapy session. Home Environment Patient Lives With: Family (mother; hx obtained from chart) Assistance Available: circulation tender (mother works machined parts metal sprayer per chart) Entry To Home: Stairs;With Rail Number Of Stairs Into Home: 3 Number Of Stairs To Bed/Bath: 13 to bed in basement; bath on first floor Stairs to Bed/Bath with: Unilateral Rail Tub/Shower Type: tub shower Laundry: basement Equipment Owned: Cane;Wheeled Walker Prior Functional Level: Required Assistance Assistance Required With: Cleaning;Laundry;Meals;Medication Management;Shopping;Transportation Prior Functional Level Comments: per chart (06/2017 CM note), pt was able to perform ADLS w/ supervision, required assist w/ all IADLs OBJECTIVE: CURRENT FUNCTIONAL STATUS: Current Functional Mobility Assist Level Additional Information Rolling Supine to Sit Total Assistance (total x2) Sit to Supine Total Assistance (total x2) Scooting Total Assistance (total x2) Sit to Stand Total Assistance (total x2) Stand to Sit Total Assistance (total x2) Bed to Chair Toilet/Commode Gait (unable to take steps) Stairs Curb Step Car Transfer Balance: Static Sitting;Dynamic Sitting;Static Standing Static Sitting Balance: Total Assistance Dynamic Sitting Balance: Total Assistance Static Standing Balance: Total Assistance Activity Tolerance: Standing Activity Standing Activity: Pt stood for 2 minutes with total assist x2 for strengthening, functional mobility, and activity tolerance. Pt required verbal cueing to weightbear evenly through both legs and licensed practical nurse instructor midline, but was unable to perform . Pt stood with increased hip adduction, unsteady Standing Activity Tolerance (in minutes): 2 Please see discipline specific clinical documentation flowsheet for complete details for this therapy evaluation/treatment. I reviewed and agree with the assessment as documented above. SIGNATURE: Dov Padron PT DATE: November 26, 2017 TIME: 4:47 PM SIGNATURE: LA Gallego PATIENT NAME: Jaylene Ram DATE: November 26, 2017 TIME: 1:45 PM PAGER/CONTACT #: [phone] CONSULT Observed: 11/26/2017 Status: COMPLETED Source: [facility] 12:15 PM [facility]IN[facility] OTHER CAMPUS REPOSITORY HNO ID: [id number] Author: Braden Phillips Service: Neurosurgery Author Type: Physician Candy Catcher Type: Consults Filed: 11/28/2017 10:24 AM Note Text: Attestation signed by Holly Smith at 11/29/2017 8:08 AM Holly Smith MD PROGRESS NOTE NEUROSURGERY SERVICE DATE: 11/26/2017 SERVICE TIME: 1530 Subjective Current hospital medications: NaCl 0.9% IV bolus 1,000 mL 1,000 mL INTRAVENOUS ONCE phenytoin ER (DILANTIN) cap(s) 130 mg 130 mg ORAL DAILY (8 AM) phenytoin ER 200 mg cap(s) (DILANTIN) 200 mg ORAL AT BEDTIME PARoxetine 40 mg tab(s) (PAXIL) 40 mg ORAL DAILY docusate sodium 100 mg cap(s) (COLACE) 100 mg ORAL BID NaCl 0.9% with 20 mEq/L KCl iv infusion 75 mL/hr INTRAVENOUS CONTINUOUS labetalol 5 mg injection (NORMODYNE) 5 mg INTRAVENOUS q 2 H PRN Objective VITAL SIGNS 24 HOUR REVIEW: Patient Vitals for the past 24 hrs: BP Temp Temp src Pulse Resp SpO2 Height Weight 11/26/17 1200 181/97 - - 87 14 96 % - - 11/26/17 1100 159/88 - - 86 14 95 % - - 11/26/17 1000 167/89 - - 84 16 97 % - - 11/26/17 0900 139/86 - - 79 19 96 % - - 11/26/17 0800 148/84 36.8 ?C (98.2 ?F) Axillary 78 19 91 % - - 11/26/17 0600 136/83 - - 74 19 94 % - - 11/26/17 0500 135/99 - - 83 30 96 % - - 11/26/17 0400 134/79 36.8 ?C (98.2 ?F) Axillary 77 19 92 % - - 11/26/17 0300 153/89 - - 86 17 93 % - - 11/26/17 0200 157/87 - - 81 17 94 % - - 11/26/17 0100 133/76 - - 79 19 96 % - - 11/26/17 0000 115/76 36.5 ?C (97.7 ?F) Axillary 76 18 94 % - - 11/25/17 2300 156/89 - - 83 15 94 % - - 11/25/17 2200 151/83 - - 83 14 96 % - - 11/25/17 2100 154/92 - - 85 12 97 % - - 11/25/17 2000 171/89 36.7 ?C (98.1 ?F) Axillary 89 14 96 % - - 11/25/17 1900 144/87 - - 81 20 96 % - - 11/25/17 1830 - - - 77 17 98 % - - 11/25/17 1815 139/85 - - 76 18 97 % - - 11/25/17 1800 163/90 - - 81 18 98 % - - 11/25/17 1745 187/98 - - 86 17 98 % - - 11/25/17 1730 163/92 - - 82 19 96 % - - 11/25/17 1715 - - - 82 18 95 % - - 11/25/17 1700 145/83 - - 82 19 95 % - - 11/25/17 1645 135/85 - - 79 17 96 % - - 11/25/17 1630 148/92 - - 83 15 95 % - - 11/25/17 1615 153/95 37.1 ?C (98.8 ?F) Oral 84 17 96 % - - 11/25/17 1600 164/102 37.1 ?C (98.8 ?F) Oral 91 15 96 % 167.6 cm (5' 5.98) 44.9 kg (98 lb 15.8 oz) 11/25/17 1403 147/92 - - 84 18 98 % - - 11/25/17 1304 167/97 - - (!) 96 16 96 % - - 11/25/17 1259 180/106 - - (!) 95 16 98 % - - 11/25/17 1245 147/82 - - (!) 96 16 95 % - - 11/25/17 1234 122/88 (!) 37.8 ?C (100 ?F) Oral (!) 98 16 95 % - - LABS: CBC, Coags, BMP, Mg, Phos Recent Labs 11/26/17 0616 11/25/17 1243 11/25/17 1239 WBC 18.48* -- 18.29* HB 11.7* -- 14.1 HCT 35.1* -- 41.1 PLT 383 -- 418* INR -- -- 1.1 APTT -- -- 25.7 NA 141 -- 139 K 3.0* -- 2.7* CHLOR 99 -- 92* CO2 30 -- 33* BUN 14 -- 10 CREAT 0.43* 0.50* 0.44* GLUC 92 -- 110* CA 8.2* -- 9.1 MG -- -- 1.8 DATA: Diagnostic tests reviewed for today's visit: Most recent labs and imaging results. Assessment/Plan Active Problems: SAH acute, chronic SDH Pt seen and examined with Dr. Smith. All recommendations discussed with and initiated by Dr. Smith. Small SAH No acute surgical recommendations. Will repeat CT in a day or two. Resolved Problems: * No resolved hospital problems. * Medication and Non-Pharmacologic VTE Prophylaxis/Anticoagulants 11/26/17 1030 activity - mobilize patient ([place], [place]) 11/25/17 1600 vte pharmacologic prophylaxis contraindicated (vt,md) 11/25/17 1600 pneumatic compression stockings ([place], [place]) 11/25/17 1600 activity - mobilize patient ([place], [place]) VTE Prophylaxis: VTE prophylaxis appropriate SIGNATURE: Braden Phillips PA-C PATIENT NAME: Jaylene Ram DATE: November 26, 2017 TIME: 12:18 PM PAGER/CONTACT #: [phone] Observed: 11/26/2017 Status: F Source: [facility] BLOOD CULTURE 12:02 PM [facility] REPOSITORY Culture Result - No growth 5 days Performed By: #### BLCUL #### [facility] [address] [place], [place] [address] Observed: 11/26/2017 Status: F Source: [facility] BLOOD CULTURE 12:02 PM [facility] REPOSITORY Culture Result - No growth 5 days Performed By: #### BLCUL #### [facility] [address] [place], [place] [address] PROGRESS Observed: 11/26/2017 Status: COMPLETED Source: [facility] 9:50 AM CLINIC OTHER CAMPUS REPOSITORY HNO ID: [id number] Author: Roxane Curiel Service: Critical Care Author Type: Anesthesiologist Type: Progress Notes Filed: 11/26/2017 10:41 PM Note Text: SURGICAL INTENSIVE CARE UNIT PROGRESS NOTE SERVICE DATE: November 26, 2017 SERVICE TIME: 0950 Subjective MAJOR ISSUES: No acute events overnight Objective VITAL SIGNS Temp: 36.4 ?C (97.5 ?F) Pulse: 83 BP: 163/88 MAP Non Invasive (Mean Arterial Pressure): 108 Resp: 17 SpO2: 97 % Not applicable Current Facility-Administered Medications: [MAR Hold due to Transfer] metoprolol tartrate (short acting) 25 mg tab(s) (LOPRESSOR) 25 mg ORAL q 8 H [MAR Hold due to Transfer] labetalol 5-10 mg injection (NORMODYNE) 5-10 mg INTRAVENOUS q 2 H PRN [JUL Hold due to Transfer] potassium chloride 40 mEq CUP 40 mEq ORAL BID phenytoin ER (DILANTIN) cap(s) 130 mg 130 mg ORAL DAILY (8 AM) phenytoin ER 200 mg cap(s) (DILANTIN) 200 mg ORAL AT BEDTIME PARoxetine 40 mg tab(s) (PAXIL) 40 mg ORAL DAILY docusate sodium 100 mg cap(s) (COLACE) 100 mg ORAL BID Neuro: Awake; unwilling to participate in clinical exam Pulmonary: Clear to auscultation. Breath Sounds Equal: Yes Cardiovascular: Regular rhythm Abdomen: Soft and Nontender Extremities: Edema- No Peripheral pulses- Present all extremities Wounds/Drsgs- No Presence of Pressure Ulcer No Intake/Output Summary (Last 24 hours) at 11/26/17 1853 Last data filed at 11/26/17 1500 Gross per 24 hour Intake 2072 ml Output 950 ml Net 1122 ml Current Weight: Weight: 46 kg (101 lb 6.6 oz) Admission Weight: Weight: 44.9 kg (98 lb 15.8 oz) Diagnostic tests reviewed for today's visit: Most recent labs and imaging results. Assessment/Plan 47 year old male with hx of MRDD s/p fall on the morning of 11/24 who presented as a Trauma 2 from [facility] with known SAH. Neuro -Analgesia: Nil -Sedation: Nil -Neuro checks q2h -Stable SAH on repeat CT this AM - Home Dilantin and paroxetine Cardiovascular - Hemodynamics: Appropriate with good systemic perfusion - Labetalol PRN for SBP >140 ? Respiratory -Stable on RA ? FEN/GI Nutrtion: Regular diet Electrolytes: Replace as needed; Multiple electrolyte derangements on admission D/c fluids ? Renal Adequate UOP with dalton in place Dalton ? Heme Hgb stable no indication for transfusion Holding VTE ppx in the setting of SAH ? ID No systemic signs of infxn Abx: Received 1 dose of rocephin ? Endocrine No hx of hyperglycemia ? PPX: Stress ulcer prophylaxis:Not indicated VTE prophylaxis:Contraindicated ? Lines: Lines, Drains, and Airways Line Peripheral 11/25/17 1303 Admission to Hospital Short Left Antecubital 20 Gauge 1 day ? Dispo - To floor today ? PATIENT CHECKLIST ? Deep vein thrombosis prophylaxis administered? No. Contraindicated.. ? Stress ulcer prophylaxis? No, not indicated.. ? HOB elevated 45 degrees? No. ? Central line or arterial line present? No ? Pain addressed? Yes. ? Plan reviewed with assigned RN? Yes. ? Nutrition:PO ? Family updated within last 24 hours? Yes. ? Discharge needs assessed? Yes. SIGNATURE: Blu Solano MD, PGY-2 PATIENT NAME: Jaylene Ram DATE: November 26, 2017 TIME: 6:53 PM PAGER/CONTACT #: [phone] [facility] STAFF PHYSICIAN SUPERVISING RESIDENT I have reviewed the progress note obtained and documented by the resident. I have discussed the case and the plan and management of the patient's care with the resident and the bedside nurse. The following comments revise or confirm relevant rebollar components of the note: Noted as above Neuro status improves. Ok to be transferred to [facility] once neuro surgery reviews scan Roxane Curiel MD November 26, 2017 10:35 PM PROGRESS Observed: 11/26/2017 Status: COMPLETED Source: [facility] 9:32 AM [facility] OTHER CAMPUS REPOSITORY HNO ID: [id number] Author: Otoniel Ramirez (Pa) Service: Trauma Author Type: Physician Candy Catcher Type: Progress Notes Filed: 11/26/2017 11:08 AM Note Text: TRAUMA TERTIARY SURVEY SERVICE DATE: 11/26/2017 SERVICE TIME: 9:34 AM TERTIARY SURVEY SUBJECTIVE: pt is 47 yo male with past med hx significant for MRDD with shunt placements, (recent removal) known to [facility] de[facility]. who fell out of bed this am. Pt reported by family to have had very poor appetitie lately. Pt originally went to [facility] and had CT scan which revealed known clif hygromas and a amll Left sided SAH. Pt was a transfer to ED as a trauma 2.alert. Upon review of imaging pt found to appear to have elevation WBC and abnormal, K . Went [place] [facility] [place] (Dr. Smith) to inspect out side CT scan.He is familiar with this patient. no need for neurosurgical intervention. will plan for admission to SICU with medicine on consult to manage many electrolyte issues. Getting sepsis workup. dalton placed at bedside iN ED. 2:51 PM upon revisiting pt in ED , pt has become more somnelent , opens eyes and follows commands.Now GCS score of 10 . appears sleepy, and not vocalizing as he was on arrival. Will plan to assess in ICU setting overnight 11/26/17 Pt seen this am sleeping in bed. He was very difficult to arouse and nurse said he was the same this earlier this am. When he was woken up he did not have any complaints. DEBBYGY is on board to see him. reapeat CT scan show stable intracranial hemorrhage. Transfer To [facility] Once cleared by [facility] BP 136/83 Pulse 74 Temp (Src) 98.2 (Axillary) Resp 19 Ht 5' 5.984 (1.68m) Wt 98 lb 15.8 oz (44.9kg) SpO2 94% BMI 15.98 kg/(m2). GCS: 10 NEURO: Unable to obtain due to mental status or language barrier HEENT: Unable to obtain due to mental status or language barrier NECK: Unable to obtain due to mental status or language barrier RESPIRATORY: Unable to obtain due to mental status or language barrier CARDIOVASCULAR: Unable to obtain due to mental status or language barrier ABDOMEN: Unable to obtain due to mental status or language barrier PELVIC/PERINEAL: Unable to obtain due to mental status or language barrier BACK/SPINE: Unable to obtain due to mental status or language barrier EXTREMITIES: Unable to obtain due to mental status or language barrier MEDICATIONS: Current hospital medications: phenytoin ER (DILANTIN) cap(s) 130 mg 130 mg ORAL DAILY (8 AM) phenytoin ER 200 mg cap(s) (DILANTIN) 200 mg ORAL AT BEDTIME PARoxetine 40 mg tab(s) (PAXIL) 40 mg ORAL DAILY docusate sodium 100 mg cap(s) (COLACE) 100 mg ORAL BID NaCl 0.9% with 20 mEq/L KCl iv infusion 75 mL/hr INTRAVENOUS CONTINUOUS labetalol 5 mg injection (NORMODYNE) 5 mg INTRAVENOUS q 2 H PRN PHYSICAL EXAM: BP 97/57 Pulse 71 Resp 15 Ht 167.6 cm (5' 6) Wt 70.8 kg (156 lb) SpO2 (!) 94% BMI 25.18 kg/m2 Genl: Appears age appropriate. No acute distress. Resting comfortably. Head/Face: Normocephalic. Atraumatic. Post cranial surgery scars Eyes: PERRLA. EOMI. Sclera not icteric ENMT: TMs clear. External auditory canals clear. Oropharynx is clear. Nasopharynx is clear. Neck: No mid-line masses. No bruits. No LAD. C-spine non-tender. Back: T AND L Spine non-tender, no step-offs noted. No flank tenderness. Resp: Lungs clear bilat. No wheezes. No rales. Breathing is non-labored. CVS: RRR. No murmur, rub, gallop. 2+ pulses at RA, DP, PT bilat. GI: Abdomen is soft, non-tender, not distended. Bowel sounds normal. No peritonitis. : Genitalia normal for age. No lesions noted. MSK: Extremities without clubbing, cyanosis, edema. Normal ROM x 4. Skin: Warm and dry. No lesions of concern. Not jaundiced. No abrasions/contusions. Neuro: AANDOx3. Baseline RUE deficit. No cerebellar signs. GCS10 Psych: Somnolent, difficult to arouse. LABS/IMAGING (pertinent to today's evaulation): CBC, Coags, BMP, Mg, Phos Recent Labs 11/26/17 0616 11/25/17 1243 11/25/17 1239 WBC 18.48* -- 18.29* HB 11.7* -- 14.1 HCT 35.1* -- 41.1 PLT 383 -- 418* INR -- -- 1.1 APTT -- -- 25.7 NA 141 -- 139 K 3.0* -- 2.7* CHLOR 99 -- 92* CO2 30 -- 33* BUN 14 -- 10 CREAT 0.43* 0.50* 0.44* GLUC 92 -- 110* CA 8.2* -- 9.1 MG -- -- 1.8 Liver Function, Amylase, AND Lipase Recent Labs 11/25/17 1239 TPROT 6.7 ALB 3.9 ALT 16 AST 22 ALKPHOS 202* TBILI 0.4 AMYLASE 46 LIPASE 8* Cardiac Enzymes Recent Labs 11/25/17 1239 TROPT <0.010 A/P right temporal contusion right shoulder abrasion small left SAH Neurosurgery consult Transfer to [facility] once cleared by NSGY repeat brain CT- showed stable SAH medicine on consult for optimization Pt, ot, Case management ? SIGNATURE: PATY Quintero PATIENT NAME: Jaylene Ram DATE: November 26, 2017 TIME: 9:34 AM PAGER/CONTACT #: [phone] Collected: 11/26/2017 Status: F Source: [facility] 6:16 AM [facility] OTHER CAMPUS REPOSITORY TYPE CODE TESTS RESULT OUT OF REFERENCE UNITS RANGE LAB PTN 10.0-20.0 ug/mL High Phenytoin 26.1 Result Comment: Reference ranges and high/low indicator flags are provided as general guidelines only. The treating physician must determine appropriate target levels/dosing based on the specific clinical situation. Performed By: #### PHT #### [place] [address] CBC Collected: 11/26/2017 Status: F Source: [facility] 6:16 AM [facility] OTHER [place] REPOSITORY TYPE CODE TESTS RESULT OUT OF REFERENCE UNITS RANGE LAB WBC 3.70-11.00 k/uL WBC High 18.48 LAB RBC 4.20-6.00 m/uL Low RBC 3.75 LAB HGB 13.0-17.0 g/dL Low Hemoglobin 11.7 LAB HCT 39.0-51.0 % Low Hematocrit 35.1 LAB MCV 80.0-100.0 fL MCV 93.6 LAB MCH 26.0-34.0 pG MCH 31.2 LAB MCHC 30.5-36.0 g/dL MCHC 33.3 LAB RDWCV 11.5-15.0 % RDW-CV 13.0 LAB PLTCT 150-400 k/uL Platelet Count 383 LAB MPV 9.0-12.7 fL MPV 9.3 Performed By: #### CBC, BMP #### [facility] [address] [place] [address] BASIC METABOLIC PANL Collected: 11/26/2017 Status: F Source: [facility] 6:16 AM [facility] REPOSITORY TYPE CODE TESTS RESULT OUT OF REFERENCE UNITS RANGE LAB GLU 65-100 mg/dL Glucose 92 LAB BUN 10-25 mg/dL BUN 14 LAB CRET 0.70-1.40 mg/dL Low Creatinine 0.43 LAB NA 135-146 mmol/L Sodium 141 LAB K 3.5-5.0 mmol/L Low Potassium 3.0 LAB CL 98-110 mmol/L Chloride 99 Result Comment: Reviewed LAB CO2 23-32 mmol/L CO2 30 LAB AGAP 9-18 mmol/L Anion Gap 12 LAB CA 8.5-10.5 mg/dL Low Calcium, Total 8.2 LAB GFRAA >60 eGFR- Amer. >60 LAB GFRNAA >60 . eGFR-All Other Races >60 Performed By: #### CBC, BMP #### [place] [address] CT BRAIN WO IVCON Observed: 11/26/2017 Status: F Source: [facility] 5:50 AM [facility] REPOSITORY * * *Final Report* * * DATE OF EXAM: Nov 26 2017 5:50AM [facility] 0504 - CT BRAIN WO IVCON / PROCEDURE REASON: Intracranial hemorrhage * * * * Physician Interpretation * * * * EXAMINATION: CT BRAIN WO IVCON CLINICAL HISTORY: Intracranial hemorrhage TECHNIQUE: Serial axial images without IV contrast were obtained from the vertex to the foramen magnum. MQ: [id number] CT Dose-Length Product (DLP): 753 mGy*cm CT Dose Reduction Employed: No dose reduction techniques were required COMPARISON: CT 07/16/2017 RESULT: Post-operative change: Remote bilateral parietal craniotomies again noted. Remote right frontal rafi hole for shunt. No current ventriculostomy. Acute change: No evidence of an acute infarct or other acute parenchymal process. Hemorrhage: Again seen are chronic bifrontal subdural collections. Since the prior study, there is hyperdensity within the bifrontal fluid collections. The hyperdensity extends posteriorly overlying the left parietal lobe superiorly. The extra-axial fluid collections measure up to 1.2 cm in maximal thickness. Mass Lesion / Mass Effect: Mild underlying mass effect upon the brain parenchyma with minimal local effacement of sulci. Chronic change: Again seen are findings consistent with known history of severe traumatic brain injury with volume loss and disproportionate at the extensive white matter. Parenchyma: There is moderate generalized volume loss. The brain parenchyma is otherwise within normal limits for age. Ventricles: Diffuse ventriculomegaly unchanged. Paranasal sinuses and skull base: The visualized paranasal sinuses are grossly clear. The skull base and imaged soft tissues are unremarkable. IMPRESSION: Interval development of acute hemorrhage within the bilateral extra-axial fluid collections as detailed above consistent with known intracranial hemorrhage Stable appearance of the brain parenchymal volume loss and extensive hydrocephalus, stable sequelae of remote severe traumatic brain injury. Remote postsurgical changes. Filler Room Attendant: DANITZA Transcribe Date/Time: Nov 26 2017 5:52A Dictated by : LIT HOPKINS MD This examination was interpreted and the report reviewed and electronically signed by: LIT HOPKINS MD on Nov 26 2017 5:59AM EST [id number] CONSULT Observed: 11/26/2017 Status: COMPLETED Source: [facility] 3:00 AM CLINIC OTHER CAMPUS REPOSITORY HNO ID: [id number] Author: Jorge Avalos Service: Neurosurgery Author Type: Physician Type: Consults Filed: 11/27/2017 12:40 PM Note Text: CONSULT: NEUROSURGERY SERVICE SERVICE DATE: 11/26/2017 SERVICE TIME: 3:00 AM REASON FOR CONSULT: SAH REQUESTING PHYSICIAN: Dr. Sarah PRIMARY CARE PHYSICIAN: Arti Acosta DO STAFF: seen and examined new acute component of extra-axial fluid collections will repeat CT Jorge Avalos MD Subjective Mr. Ram is a 47 year old MRDD male who presents as a transfer from [facility] after patient reportedly fell out of bed this morning and was found down by his mother. Imaging performed at OSH was notable for bilateral frontoparietal hygromas (known, chronic) and small left SAH. He was transferred to ED for trauma evaluation. Patient offers little history at current due to altered mental status. At current, he is arousable to verbal stimuli, responds to his name but will not state his name or current setting/situation, intelligible words, follows limited simple commands, agitated when awoken --- GCS 12. History is obtained via chart review. He has a history of TBI/SDH requiring bilateral posterior parietal craniotomies, has residual RUE weakness. Had a HOME VISITOR HOME BASE HEAD START shunt placed for hydrocephalus in 2010, was removed 09/[address] Grewal for exposed hardware and catheter malfunction. Possibly seizure disorder, on Dilantin. FUNCTIONAL STATUS: Totally dependent - lives at home with his mother 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ASE HEAD START shunt 04/2011 - Seizure disorder (HCC) questionable, on phenytoin, none since 04/2011 - Subdural hematoma, acute (HCC) resolved from TBI - TBI (traumatic brain injury) (HCC) 03/2011 rt sided weakness, hx subarachnoid bleed PAST SURGICAL HISTORY Procedure Laterality Date - DXA BONE DENSITY, AXIAL 03/01/14 Osteopenia - FOOT SURGERY HX 11/25/15 - PAST SURGICAL HISTORY OF 04/2011 HOME VISITOR HOME BASE HEAD START shunt - PAST SURGICAL HISTORY OF prior trach and peg - PAST SURGICAL HISTORY OF correction of PEG complications - TOTAL HIP REPLACEMENT left FAMILY HISTORY Problem Relation Age of Onset - Breast Cancer Paternal Grandmother - Cataract Mother Social History Substance Use Topics - Smoking status: Current Every Day Smoker Packs/day: 0.50 Years: 20.00 Types: Cigarettes - Smokeless tobacco: Never Used Comment: 6 cigarettes daily. - Alcohol use No Comment: sober 5 months Prescriptions Prior to Admission: B-complex with vitamin C (ALLBEE WITH C) tablet TAKE 1 TABLET BY MOUTH EVERY DAY Disp: 90 tablet Rfl: 1 11/24/2017 at Unknown time PARoxetine (PAXIL) 40 mg tablet Take 1 tablet by mouth once daily. Disp: 90 tablet Rfl: 3 11/24/2017 at Unknown time aspirin, enteric coated (ADULT LOW DOSE ASPIRIN) 81 mg EC tablet Take 1 tablet by mouth once daily. Disp: Rfl: 0 11/24/2017 at Unknown time ASCORBIC ACID (VITAMIN C ORAL) Take by mouth. Disp: Rfl: 11/24/2017 at Unknown time CALCIUM PHOSPHATE DIBAS/VIT D3 (VITAMIN D, WITH CALCIUM, ORAL) Take by mouth. Disp: Rfl: 11/24/2017 at Unknown time phenytoin ER (DILANTIN) 30 mg ER capsule Take 130 MG in the morning. Disp: Rfl: 11/24/2017 at Unknown time phenytoin SR (DILANTIN EXTENDED) 100 mg ER capsule Take 2 capsules by mouth daily at bedtime. Disp: Rfl: 11/24/2017 at Unknown time Ascorbate Calcium 500 mg tab Take 1 tablet by mouth twice daily. Disp: Rfl: 0 11/24/2017 at Unknown time Current hospital medications: phenytoin ER (DILANTIN) cap(s) 130 mg 130 mg ORAL DAILY (8 AM) phenytoin ER 200 mg cap(s) (DILANTIN) 200 mg ORAL AT BEDTIME PARoxetine 40 mg tab(s) (PAXIL) 40 mg ORAL DAILY docusate sodium 100 mg cap(s) (COLACE) 100 mg ORAL BID NaCl 0.9% with 20 mEq/L KCl iv infusion 75 mL/hr INTRAVENOUS CONTINUOUS labetalol 5 mg injection (NORMODYNE) 5 mg INTRAVENOUS q 2 H PRN Allergies As of Date: 11/25/2017 (No Known Allergies) Fully Assessed 11/25/2017 COMPLETE REVIEW OF SYSTEMS: Formal ROS unable to be performed due to patient's current mental status. Objective PHYSICAL EXAM: Physical Exam Performed: GENERAL: Drowsy (awakens to call though agitated with awakening), no distress, follows limited simple commands SKIN: Skin color, texture, turgor normal HEAD/SINUSES: Abrasion to right temporal region EYES: Anicteric sclerae OROPHARYNX: MMM NECK: Supple BACK: Back symmetric, Normal curvature, No CVAT LUNGS: Unlabored breathing, no accessory muscle use ABDOMEN: Abdomen soft, non-tender, BS normal, No peritoneal signs EXTREMITIES: Warmly perfused distally, no edema NEURO: Cranial nerves intact. NAGA. A/Ox1. GCS 12. No cerebellar signs of injury. Cannot/will not participate in coordinated testing. PERRL, tracks throughout visual field. No focal neuro deficits identified. PULSES: 2+ radial, bilaterally BP 134/79 Pulse 77 Temp (Src) 98.2 (Axillary) Resp 19 Ht 5' 5.984 (1.68m) Wt 98 lb 15.8 oz (44.9kg) SpO2 92% BMI 15.98 kg/(m2). DATA: Diagnostic tests reviewed for today's visit: Most recent labs and imaging results. OSH CTH images reviewed. Impression/Recommendations Active Problems: SAH (subarachnoid hemorrhage) (HCC) POA: Yes Assessment AND Plan: Mr. Ram is a 47 year old MRDD male with a history of TBI/SDH requiring bilateral posterior parietal craniotomies, has residual RUE weakness. Had a HOME VISITOR HOME BASE HEAD START shunt placed for hydrocephalus in 2010, was removed 09/[address] Grewal for exposed hardware and catheter malfunction. Presents to ED as a transfer from OSH for evaluation of small left SAH after sustaining an unwitnessed fall from this bed overnight. In the trauma bay, was noted to have increased lethargy which was a change from initial assessment, he was admitted to the ICU for frequent neurologic evaluation. At current, no focal neuro deficits were identified but thorough exam not possible due to his current mental state. - No acute surgical intervention at this time - Monitor in ICU overnight w/ neurochecks every 1 hour - If significant neurological change STAT CTH, otherwise repeat in AM - Maintain MAP >65, SBP <140-160 - NPO except medications if passes RN swallow screen - Bedrest, HOB >30; fall precautions, seizure precautions (has history of epilepsy, on Dilantin --- check serum level) - IS, CANDDB Q1H - PT/OT consults once stable - Hold all AC - Final recommendations to be given per Dr. Smith pending his evaluation Resolved Problems: * No resolved hospital problems. * SIGNATURE: Shaun Fofana APRN.CNP PATIENT NAME: Jaylene Ram DATE: November 26, 2017 TIME: 4:28 AM PAGER: NURSING PROG Observed: 11/25/2017 Status: COMPLETED Source: [facility] 11:45 PM [facility] OTHER [facility] REPOSITORY HNO ID: [id number] Author: Ugo (Rn) DERIC Perez Service: Nursing Author Type: Registered Nurse Type: Nursing Progress Note Filed: 11/26/2017 6:29 AM Note Text: Nursing Progress Note Patient Name: Jaylene Ram Patient Location: [place] [address]- Daily Note: 193: assumed care of pt, NIH assessment attempted with reporting RN but was unsuccessful as pt was refusing to participate in care, will attempt again shortly 1999: pt assessed, VSS, neurologically [id number] but can follow simple commands, NIH attempted again but pt is not fully participating in care, see NIH documentation. Bolus infusing for Low urine output 5mg Labetolol given for Bp 170sys 0000: pt reassessed, no significant changes noted see documentation flow sheet 0130: SICU team rounding on pt, orders in 0400: Pt reassessed, no significant changes noted see documentation flowsheet 0415: Mendoza GARCIA, in assessing pt. 0500: Resident notified about low urine output. Monitoring for now 0530: Pt down to CT 0550: pt back from CT This note was completed by: Ugo Perez RN CONSULT Observed: 11/25/2017 Status: COMPLETED Source: [facility] 7:34 PM CLINIC OTHER CAMPUS REPOSITORY O ID: [id number] Author: Roxane Curiel Service: Critical Care Author Type: Anesthesiologist Type: Consults Filed: 11/25/2017 8:49 PM Note Text: SICU HANDP NOTE SERVICE DATE: 11/25/2017 SERVICE TIME: 7:35 PM Subjective HPI: This is a 47 year old male who presents with hx of MRDD s/p shunt placement which was recently removed who fell this morning while walking from his bed to the stairs. He has had a poor appetite recently. Earlier today, he went to the [facility] and had a CT scan showing a small left sided SAH. He has been seen by Trauma and Neurosurgery who are requesting an ICU bed for neuro monitoring. 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ASE HEAD START shunt 04/2011 - Seizure disorder (HCC) questionable, on phenytoin, none since 04/2011 - Subdural hematoma, acute (HCC) resolved from TBI - TBI (traumatic brain injury) (HCC) 03/2011 rt sided weakness, hx subarachnoid bleed PAST SURGICAL HISTORY Procedure Laterality Date - DXA BONE DENSITY, AXIAL 03/01/14 Osteopenia - FOOT SURGERY HX 11/25/15 - PAST SURGICAL HISTORY OF 04/2011 HOME VISITOR HOME BASE HEAD START shunt - PAST SURGICAL HISTORY OF prior trach and peg - PAST SURGICAL HISTORY OF correction of PEG complications - TOTAL HIP REPLACEMENT left FAMILY HISTORY Problem Relation Age of Onset - Breast Cancer Paternal Grandmother - Cataract Mother Social History Substance Use Topics - Smoking status: Current Every Day Smoker Packs/day: 0.50 Years: 20.00 Types: Cigarettes - Smokeless tobacco: Never Used Comment: 6 cigarettes daily. - Alcohol use No Comment: sober 5 months PRIOR TO ADMISSION MEDICATIONS Prescriptions Prior to Admission: B-complex with vitamin C (ALLBEE WITH C) tablet TAKE 1 TABLET BY MOUTH EVERY DAY Disp: 90 tablet Rfl: 1 11/24/2017 at Unknown time PARoxetine (PAXIL) 40 mg tablet Take 1 tablet by mouth once daily. Disp: 90 tablet Rfl: 3 11/24/2017 at Unknown time aspirin, enteric coated (ADULT LOW DOSE ASPIRIN) 81 mg EC tablet Take 1 tablet by mouth once daily. Disp: Rfl: 0 11/24/2017 at Unknown time ASCORBIC ACID (VITAMIN C ORAL) Take by mouth. Disp: Rfl: 11/24/2017 at Unknown time CALCIUM PHOSPHATE DIBAS/VIT D3 (VITAMIN D, WITH CALCIUM, ORAL) Take by mouth. Disp: Rfl: 11/24/2017 at Unknown time phenytoin ER (DILANTIN) 30 mg ER capsule Take 130 MG in the morning. Disp: Rfl: 11/24/2017 at Unknown time phenytoin SR (DILANTIN EXTENDED) 100 mg ER capsule Take 2 capsules by mouth daily at bedtime. Disp: Rfl: 11/24/2017 at Unknown time Ascorbate Calcium 500 mg tab Take 1 tablet by mouth twice daily. Disp: Rfl: 0 11/24/2017 at Unknown time ALLERGIES No Known Allergies Admission Weight: Weight: 44.9 kg (98 lb 15.8 oz) Objective VITAL SIGNS Temp: 37.1 ?C (98.8 ?F) Pulse: 77 BP: 139/85 MAP Non Invasive (Mean Arterial Pressure): 101 Resp: 17 SpO2: 98 % [place] Tamiko Readings: Not applicable PHYSICAL EXAM Neuro: Awake; unwilling to participate in clinical exam Pulmonary: Clear to auscultation. Breath Sounds Equal: Yes Cardiovascular: Regular rhythm Abdomen: Soft and Nontender Extremities: Edema- No Peripheral pulses- Present all extremities Wounds/Drsgs- No Presence of Pressure Ulcer No CXR Findings: CXR personally viewed and interpreted by ICU Nurse Practitioner. Unremarkable chest x-ray Infusions: None Current Facility-Administered Medications: phenytoin ER 200 mg cap(s) (DILANTIN) 200 mg ORAL AT BEDTIME PARoxetine 40 mg tab(s) (PAXIL) 40 mg ORAL DAILY docusate sodium 100 mg cap(s) (COLACE) 100 mg ORAL BID NaCl 0.9% with 20 mEq/L KCl iv infusion 75 mL/hr INTRAVENOUS CONTINUOUS labetalol 5 mg injection (NORMODYNE) 5 mg INTRAVENOUS q 2 H PRN NaCl 0.9% IV bolus 1,000 mL 1,000 mL INTRAVENOUS ONCE Patient Lines Assessed: None RECENT LABS Recent Labs 11/25/17 1243 11/25/17 1239 MG -- 1.8 CA -- 9.1 NA -- 139 K -- 2.7* CHLOR -- 92* CO2 -- 33* BUN -- 10 CREAT 0.50* 0.44* GLUC -- 110* TPROT -- 6.7 ALB -- 3.9 AST -- 22 ALT -- 16 ALKPHOS -- 202* TBILI -- 0.4 WBC -- 18.29* RBC -- 4.42 HB -- 14.1 HCT -- 41.1 PLT -- 418* INR -- 1.1 APTT -- 25.7 DATA: Diagnostic tests reviewed for today's visit: Most recent labs and imaging results. Assessment/Plan 47 year old male with hx of MRDD s/p fall on the morning of 11/24 who presented as a Trauma 2 from [facility] with known SAH. REASON FOR ICU ADMISSION: Neurologic Monitoring Neuro -Analgesia: Nil -Sedation: Nil -Neuro checks q2h -Small SAH -Plan for repeat CTH in AM - Home Dilantin and paroxetine Cardiovascular - Hemodynamics: Appropriate with good systemic perfusion - Labetalol PRN for SBP >140 Respiratory -Stable on RA Recent Labs 11/25/17 1239 CO2 33* FEN/GI Nutrtion: Regular diet Electrolytes: Replace as needed; Multiple electrolyte derangements on admission Fluids: NS @ 75 cc/hr ? Renal Creatinine Date Value Ref Range Status 11/25/2017 0.44 (L) 0.70 - 1.40 mg/dL Final Creatinine (POCT) Date Value Ref Range Status 11/25/2017 0.50 (A) 0.7 - 1.4 mg/dL Final Adequate UOP with dalton in place Likely dalton out tomorrow Heme Hgb stable no indication for transfusion Holding VTE ppx in the setting of SAH ID New leukocytosis of 18.29K; afebrile Abx: Received 1 dose of rocephin Endocrine No hx of hyperglycemia ? PPX: Stress ulcer prophylaxis:Not indicated VTE prophylaxis:Contraindicated ? Lines: Lines, Drains, and Airways Line Peripheral 11/25/17 1303 Admission to Hospital Short Left Antecubital 20 Gauge less than 1 day Drain Indwelling Urinary Catheter 11/25/17 1307 Coude 18 Fr less than 1 day ? Dispo - Remain in SICU overnight for neuro monitoring ? SIGNATURE: Blu Solano MD PATIENT NAME: Jaylene Ram DATE: November 25, 2017 TIME: 7:35 PM PAGER/CONTACT #: [phone] [facility] STAFF PHYSICIAN SUPERVISING RESIDENT I have reviewed the progress note obtained and documented by the resident. I have discussed the case and the plan and management of the patient's care with the resident and the bedside nurse. The following comments revise or confirm relevant rebollar components of the note: Noted as above Reason for ICU Admission: Neuro monitoring CURRENT IMPRESSION AND PLAN: 47 year old male is admitted to SICU for neuro exam due to SAH and SDH resulted from fall NEURO: SAH/SDH Neuro surgery consulted Control SBP<140mmHg Hold AC History of Seizure disorder Resume dilantin CV: Hypertensive, secondary to SDH/SAH Start as needed labetalol to keep SBP<140mmHg RESP: On room air GI: on regular diet RENAL: Oligouria, alkalosis, hypochloremic. Due to hypovolemia I treat it with normal saline bolus Start MIVF Hypokalemia: I treat it with potassium supplement ID: Leukocytosis, but afebrile, no tachycardia. Sample appears to be concentrate. UA Is negative No antibiotics for now Continue to monitor Brief HPI / PMH / PSH: 47 yea renata male is admitted to SICU for small SAH after he fell out of bed on 11/24 He initially presented at [facility] ER: CT head showed left frontal SAH and subacute subdural hematoma. [facility] PMHx: MRDD and seizure disorder level II Roxane Curiel MD November 25, 2017 8:48 PM NURSING PROG Observed: 11/25/2017 Status: COMPLETED Source: [facility] 4:02 PM [facility] REPOSITORY HNO ID: [id number] Author: Otoniel (Rn) DERIC Mullins Service: Nursing Author Type: Registered Nurse Type: Nursing Progress Note Filed: 11/25/2017 6:34 PM Note Text: Nursing Progress Note Patient Name: Jaylene Ram Patient Location: [place] [address] [address] Daily Note: 1545. Patient arrived on unit. Connected to monitoring. MD made aware patient is here. Neuro check attempted. Patient not cooperating. Did not state name, location, or year. Pupils 4 equal, brisk. Potassium 20K running in peripheral IV. 1600. Reassessment complete; see documentation. VSS. Will continue to monitor. 1700. Maintenance fluid ordered. Awaiting from pharmacy. Dr. Curiel does not want magnesium ordered, 1800. Dr. Curiel aware of low UO. 1900. Report given to rn shift mgr RN. This note was completed by: Otoniel Mullins RN ED PROV NOTE Observed: 11/25/2017 Status: COMPLETED Source: [facility] 3:08 PM [facility] REPOSITORY HNO ID: [id number] Author: Ghulam Linares MD Service: Emergency Medicine Author Type: Physician Type: ED Provider Notes Filed: 11/25/2017 3:27 PM Note Text: ED Provider Note Patient Name: Jaylene Ram SERVICE DATE: 11/25/17 History Patient presents with: Fall: SAH Trauma tx. from [facility] a 47-year-old male past medical history of atrial fibrillation, previous right brain injury and chronic subdural hematoma, obstructive hydrocephalus status post HOME VISITOR HOME BASE HEAD START shunt presents today via [facility]. Patient reportedly fell out of bed this morning and was found down by his mother. Outside hospital imaging was notable for a possible subdural hemorrhage of unclear chronicity and a acute subarachnoid hemorrhage. Patient was transferred here via trauma activation for further management via neurosurgery. 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ASE HEAD START shunt 04/2011 - Seizure disorder (HCC) questionable, on phenytoin, none since 04/2011 - Subdural hematoma, acute (HCC) resolved from TBI - TBI (traumatic brain injury) (HCC) 03/2011 rt sided weakness, hx subarachnoid bleed PAST SURGICAL HISTORY Procedure Laterality Date - DXA BONE DENSITY, AXIAL 03/01/14 Osteopenia - FOOT SURGERY HX 11/25/15 - PAST SURGICAL HISTORY OF 04/2011 HOME VISITOR HOME BASE HEAD START shunt - PAST SURGICAL HISTORY OF prior trach and peg - PAST SURGICAL HISTORY OF correction of PEG complications - TOTAL HIP REPLACEMENT left FAMILY HISTORY Problem Relation Age of Onset - Breast Cancer Paternal Grandmother - Cataract Mother Social History Social History Main Topics - Smoking status: Current Every Day Smoker Packs/day: 0.50 Years: 20.00 Types: Cigarettes - Smokeless tobacco: Never Used Comment: 6 cigarettes daily. - Alcohol use No Comment: sober 5 months - Drug use: No - Sexual activity: Not on file ALLERGIES No Known Allergies Review of Systems Unable to perform ROS: Patient nonverbal Physical Exam BP 147/92 Pulse 84 Temp (Src) 100 (Oral) Resp 18 SpO2 98% Physical Exam Constitutional: He appears well-nourished. No distress. Cachectic HENT: Head: Normocephalic and atraumatic. Surgical scars to cranium, well-healed Eyes: EOM are normal. Pupils are equal, round, and reactive to light. Neck: Normal range of motion. Neck supple. Cardiovascular: Normal rate and normal heart sounds. Pulmonary/Chest: No respiratory distress. Abdominal: He exhibits no distension. There is no tenderness. Musculoskeletal: Normal range of motion. Neurological: No cranial nerve deficit. Contractures to bilateral upper extremities, chronic per family Skin: Skin is warm. He is not diaphoretic. Psychiatric: Nonverbal baseline Diagnostic Testing ED Labs Ordered and Reviewed CREATININE, BLOOD (POC) - Abnormal; Notable for the following: Result Value Ref Range Creatinine (POCT) 0.50 (*) 0.7 - 1.4 mg/dL All other components within normal limits Narrative: Meter ID:[id number] Location:ED [facility], [address] [place] [address], [facility] CBC + AUTO DIFF (AK,AV,EU,FV,HL,CRISTIAN,MM,SP) - Abnormal; Notable for the following: WBC 18.29 (*) 3.70 - 11.00 k/uL Platelet Count 418 (*) 150 - 400 k/uL Abs Neut (ANC) 15.20 (*) 1.45 - 7.50 k/uL Abs [place] 1.49 (*) <0.87 k/uL All other components within normal limits LIPASE BLOOD (AK,AV,EU,FV,HL,CRISTIAN,MM,SP) - Abnormal; Notable for the following: Lipase 8 (*) 12 - 70 U/L All other components within normal limits COMPREHENSIVE METABOLIC PANEL (AK,AV,EU,FV,HL,CRISTIAN,MM,SP) - Abnormal; Notable for the following: Alkaline Phosphatase 202 (*) 40 - 150 U/L Glucose 110 (*) 65 - 100 mg/dL Creatinine 0.44 (*) 0.70 - 1.40 mg/dL Potassium 2.7 (*) 3.5 - 5.0 mmol/L Chloride 92 (*) 98 - 110 mmol/L CO2 33 (*) 23 - 32 mmol/L All other components within normal limits URINE DRUG SCREEN (AK,AV,EU,FV,HL,CRISTIAN,MM,SP) - Abnormal; Notable for the following: Barbiturates Urine Preliminary positive. (*) Negative All other components within normal limits URINALYSIS WITH MICROSCOPIC (AK,AV,EU,FV,HL,CRISTIAN,MM,SP) - Abnormal; Notable for the following: Color Stephany (*) Yellow Clarity Cloudy (*) Clear Bilirubin, Urine Positive (*) Negative Hemoglobin/Blood,Ur Small (*) Negative Protein, Urine 100 (*) Negative mg/dL Urobilinogen 4 (*) <2.0 WBC, Urine 5-10 (*) Negative /HPF RBC, Urine 10-25 (*) Negative /HPF Cast SEE COMMENT (*) 0 /LPF All other components within normal limits ALCOHOL / ETHANOL BLOOD (AK,AV,EU,FV,HL,CRISTIAN,MM,SP) PROTHROMBIN TIME / PT (AK,AV,EU,FV,HL,CRISTIAN,MM,SP) ACTIVATED PTT (AK,AV,EU,FV,HL,CRISTIAN,MM,SP) AMYLASE BLOOD (AK,AV,EU,FV,HL,CRISTIAN,MM,SP) TROPONIN T (AV,EU,FV,HL,CRISTIAN,MM,SP) MAGNESIUM BLOOD (AK,AV,EU,FV,HL,CRISTIAN,MM,SP) TYPE + SCREEN (AK,AV,EU,FV,HL,CRISTIAN,MM,SP) Procedures Medical Decision Making MDM Patient emergently evaluate upon arrival here in the ER. Initial exam shows nonverbal status. Cranial nerves are grossly intact. -Trauma reviewed from Head CT from [facility] with Dr. Smith trauma surgery evaluated at bedside. Recommending surgical ICU for frequent neuro checks -Confirmed plan with Dr. Curiel of SICU -Noted to be profoundly hypokalemic. Repleted with IV potassium and oral potassium here in the ER -Patient with low-grade fever and leukocytosis. Not septic. Urine equivocal treated empirically with Rocephin and cultures were sent. ID plced on consult. Critical Care I spent a total of 45 minutes of critical care time in the evaluation and management of this patient. This was necessary to treat or prevent deterioration of the following condition(s): BOARD ATTENDANT impairment and Multiple trauma, which the patient had and/or has a high probability of suddenly developing. The patient received Consultation by Trauma, NSGY during the time that critical care was provided. Critical care time excludes separately billed procedures. Ghulam Linares MD ED Course / Clinical Impression Clinical Impressions as of Nov 25 1526 SAH (subarachnoid hemorrhage) (HCC) Plan SIGNATURE: MD Ghulam TRAN MD 11/25/171526 ED NOTE Observed: 11/25/2017 Status: COMPLETED Source: [facility] 3:05 PM [facility] REPOSITORY HNO ID: [id number] Author: Augusta (Deric) DERIC Contreras Service: Nursing Author Type: Registered Nurse Type: ED Notes Filed: 11/25/2017 3:13 PM Note Text: Report to sang SOUSA EKG (AK,AV,EU,FV,HL,RCISTIAN,MM,SP) Observed: Status: F Source: [facility] 11/25/2017 1:28 PM [facility] OTHER [facility] REPOSITORY NAME : JAYLENE RAM PID : [id number] : 1970 Gender : Male Race : ORD : [id number] Procedure Date : Nov 25 2017 13:28:49 Edit Date : Nov 25 2017 23:18:48 Diagnosis:Sinus rhythm Biatrial enlargement Left ventricular hypertrophy Abnormal T, consider ischemia, anterior leads Prolonged QT interval Abnormal ECG Confirmed by MD LINARES JEFFREY ([id number]), visual effects editor VALERIE BARNHART ([id number]) on 11/25/2017 11:18:45 PM Ventricular Rate : 93 BPM Atrial Rate : 95 BPM P-R Interval : 135 ms QRS Duration : 97 ms Q-T Interval : 450 ms QTC Calculation(Bezet) : 560 ms P Stanley : 79 degrees R Stanley : 79 degrees T Stanley : -48 degrees Test Reason : OPEN Location : 402 : FVED SF Overread By : MD LINARES JEFFREY Edited By : VALERIE BARNHART Referred By : , Acquired by : PARTHA MULLER ED NOTE Observed: 11/25/2017 Status: COMPLETED Source: [facility] 1:23 PM [facility] OTHER CAMP[facility] REPOSITORY HNO ID: [id number] Author: Augusta (Rn) DERIC Contreras Service: Nursing Author Type: Registered Nurse Type: ED Notes Filed: 11/25/2017 1:23 PM Note Text: Assumed care of trauma 2 patient at this time urine sent and blood cultures set 2 sent to lab. URINALYSIS WITH Collected: 11/25/2017 Status: F Source: [facility] MICROSCOPIC 1:00 PM CLINIC OTHER CAMPUS REPOSITORY TYPE CODE TESTS RESULT OUT OF RANGE REFERENCE UNITS LAB UCOL Yellow Abnormal Color Stephany Alert LAB [facility] Clear Abnormal Clarity Cloudy Alert LAB UGLUC Negative mg/dL Glucose, Negative Urine LAB UBIL Negative Abnormal Bilirubin, Positive Alert Urine Result Comment: Suggest correlation with clinical findings and serum bilirubin if clinically indicated. LAB UKET Negative Ketones, Urine Negative LAB USPG 1.005-1.030 Specific Breaks, Ur 1.025 LAB UHGB Negative Abnormal Alert Hemoglobin/Blood,U Small r LAB UPH 5.0-8.0 pH 5.0 LAB UPROT Negative mg/dL Abnormal Protein, Urine Alert 100 LAB UUROB <2.0 High Urobilinogen 4 LAB UNITR Negative Nitrites Negative LAB ULKEST Negative Leukest Negative LAB UCOM Comments SEE COMMENT Result Comment: Microscopic Examination Performed LAB UWBC Negative /HPF Abnormal Alert WBC 5-10 LAB URBC Negative /HPF Abnormal Alert RBC 10-25 LAB UCAST 0 /LPF Abnormal Alert Cast SEE COMMENT Result Comment: Many Hyaline Cast LAB MUCSI Present Mucus Performed By: #### UAWMIC, UTOX2 #### [place] [address] TOXICOLOGY SCREEN,UR Collected: 11/25/2017 Status: F Source: [facility] 1:00 PM [facility] REPOSITORY TYPE CODE TESTS RESULT OUT OF REFERENCE UNITS RANGE LAB UPCP2 Negative Negative Phencyclidin e, Urine Result Comment: Cutoff threshold at 25 ng/mL. LAB UBENZ2 Negative Benzodiazepines, Ur Negative Result Comment: Cutoff threshold at 200 ng/mL. LAB UCOC2 Negative Cocaine, Negative Urine Result Comment: Cutoff threshold at 300 ng/mL. LAB UAMPH2 Negative Amphetamines, Urine Negative Result Comment: Cutoff threshold at 1000 ng/mL. LAB UTHC2 Negative Cannabinoids, Urine Negative Result Comment: Cutoff threshold at 50 ng/mL. LAB UOPI2 Negative Opiates, Negative Urine Result Comment: Cutoff threshold at 300 ng/mL. LAB UBARB2 Negative Barbiturates, Abnormal Urine Preliminary Alert positive. Result Comment: Cutoff threshold at 200 ng/mL. LAB UETOH <11 mg/dL <11 Ethanol, Urine LAB UOXYC Negative Oxycodone, Negative Urine Result Comment: Cutoff threshold at 100 ng/mL. Comment: Immunoassay screen only. Cross reactivity with other substances can occur with immunoassay screening. Detection of any drug(s) in this urine toxicology panel is presumptive only. These tests are for med ical purposes only and should not be used for compliance monitoring, legal, or forensic use. Samples should be within normal physiological conditions (e.g. pH). This assay does not include adulteration/specimen validity testing. In clinical settings, confirmatory testing is at the practitioner's discretion [1]. If clinically indicated, confirmation by high specificity, quantitative methodology, which includes adulteration/spec imen validity testing, may be requested on the same specimen through Client Services ([phone]) if contacted within 48 hours of initial testing. [1]Substance Abuse and Mental Health Services Administration (2012). Clinical Drug Testing in Primary Care Technical Assistance Publication Series 32. Department of Health and Human Services, [place], p.10. Performed By: #### UAWMIC, UTOX2 #### [place] [address] ED NOTE Observed: 11/25/2017 Status: COMPLETED Source: [facility] 12:59 PM [facility] [place] REPOSITORY HNO ID: [id number] Author: Cecelia Peterson (Pharmacist) Service: Pharmacy Author Type: Pharmacist Type: ED Notes Filed: 11/25/2017 1:00 PM Note Text: Pharmacy Trauma PATIENT NAME: Jaylene Ram SERVICE DATE: 11/25/2017 SERVICE TIME: 1:00 PM Pharmacy attended a trauma on 11/25/2017 at 1235. The physician receiving the trauma was Dr. Linares. Allergies: ALLERGIES No Known Allergies The following medications were ordered in the Emergency Department during the initial trauma assessment: - None No additional comments at this time. Please call with any further issues or questions. Electronic Signature: Dipesh Toussaint Pager/Extension: [phone] ALLIED HEALTH Observed: 11/25/2017 Status: COMPLETED Source: [place] 12:51 PM [facility] HNO ID: [id number] Author: Luna De La TorreRt) Gisele Romano Service: Radiology Author Type: Sequins Winder Type: Allied Health Filed: 11/25/2017 12:52 PM Note Text: Radiology Service Progress Note PATIENT NAME: Jaylene Ram DATE OF SERVICE: November 25, 2017 TIME: 12:51 PM PATIENT IDENTITY VERIFICATION COMPLETED USING TWO (2) METHODS: Patient confirmed name verbally and ID band matches.. PATIENT GENDER DATA: Female. status: : No status: NO. PATIENT RELEVANT IMPLANT DATA REVIEWED: Not Applicable RADIOLOGY DEPARTMENT: General X-ray: Exam(s) Completed: Chest X-Ray PERIPHERAL IV DATA: Not applicable SIGNED BY: RT Franchesca November 25, 2017 12:51 PM XR CHEST 1V FRONTAL Observed: 11/25/2017 Status: F Source: [facility] 12:50 PM [facility] REPOSITORY * * *Final Report* * * DATE OF EXAM: Nov 25 2017 12:50PM FVX [id number] - XR CHEST 1V FRONTAL PORT / PROCEDURE REASON: Chest trauma, blunt * * * * Physician Interpretation * * * * EXAMINATION: CHEST RADIOGRAPH (PORTABLE SINGLE VIEW AP) Exam Date/Time: 11/25/2017 12:50 PM Clinical History: Chest trauma, blunt MQ: [id number] Comparison: 07/16/2017 RESULT: Lines, tubes, and devices: None. Lungs and pleura: The lungs are free of airspace opacities. No pleural effusion or pneumothorax is seen. Cardiomediastinal silhouette: Stable cardiomediastinal silhouette. Other: . IMPRESSION: No acute process seen Filler Room Attendant: DANITZA Transcribe Date/Time: Nov 25 2017 12:53P Dictated by : BABAK LORA MD This examination was interpreted and the report reviewed and electronically signed by: BABAK LORA MD on Nov 25 2017 12:53PM EST [id number] HISTORY PHYSICAL Observed: 11/25/2017 Status: COMPLETED Source: [place] 12:47 PM [facility] REPOSITORY HNO ID: [id number] Author: Everardo Little) Tyrel Service: Trauma Author Type: Physician Type: HANDP Filed: 11/25/2017 4:48 PM Note Text: TRAUMA HANDP [facility] ARRIVAL DATE: November 25, 2017 ARRIVAL TIME: 1240 CATEGORY: Level 2 INJURY DATE: November 25, 2017 INJURY TIME: 0830 am Subjective This is a 47 year old White male. GCS at Scene was unknown. HPI/CHIEF COMPLAINT: pt is 47 yo male with past med hx significant for MRDD with shunt placements, (recent removal) known to [facility] de[facility] who fell out of bed this am. Pt reported by family to have had very poor appetitie lately. Pt originally went to [facility] and had CT scan which revealed known clif hygromas and a amll Left sided SAH. Pt was a transfer to ED as a trauma 2.alert. Upon review of imaging pt found to appear to have elevation WBC and abnormal, K . Went to N[place] in [place] (Dr. Smith) to inspect out side CT scan.He is familiar with this patient. no need for neurosurgical intervention. will plan for admission to SICU with medicine on consult to manage many electrolyte issues. Getting sepsis workup. dalton placed at bedside iN ED. 2:51 PM upon revisiting pt in ED , pt has become more somnelent , opens eyes and follows commands.Now GCS score of 10 . appears sleepy, and not vocalizing as he was on arrival. Will plan to assess in ICU setting overnight BRIEF DESCRIPTION OF INJURIES: right temporal contusion right shoulder abrasion small left SAH LAST FLUIDS/MEAL: unknown ALLERGIES No Known Allergies (Not in a hospital admission) DATE OF LAST TETANUS: Unknown Immunization History Administered Date(s) Administered Influenza Seasonal Inj Age 3+ 02/17/2014 03/16/2015 Influenza Seasonal Inj Quadrivalent Age 3+ 04/09/2016 04/10/2017 Influenza Vaccine, Split-Non Spec 04/22/2012 Pneumovax 12/22/2012 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 START shunt 04/2011 - Seizure disorder (HCC) questionable, on phenytoin, none since 04/2011 - Subdural hematoma, acute (HCC) resolved from TBI - TBI (traumatic brain injury) (HCC) 03/2011 rt sided weakness, hx subarachnoid bleed PAST SURGICAL HISTORY Procedure Laterality Date - DXA BONE DENSITY, AXIAL 03/01/14 Osteopenia - FOOT SURGERY HX 11/25/15 - PAST SURGICAL HISTORY OF 04/2011 [employer] HEAD START shunt - PAST SURGICAL HISTORY OF prior trach and peg - PAST SURGICAL HISTORY OF correction of PEG complications - TOTAL HIP REPLACEMENT left Social History Marital status: Single Spouse name: Years of education: Number of children: Social History Main Topics Smoking status: Current Every Day Smoker Packs/day: 0.50 Years: 20.00 Types: Cigarettes Smokeless tobacco: Never Used Comment: 6 cigarettes daily. Alcohol use: No Comment: sober 5 months Drug use: No ROS: Is the patient having any pain? No 0 on a scale of 0 to 10 Constitutional: Negative Eye/Ear/Nose: Negative Respiratory: Negative Cardiovascular: Negative GI/Liver/Biliary: Negative Genitourinary: see HPi Psychiatric: see HPI Neurologic: see HPI Musculoskeletal: Negative Integument: Negative Endocrine: Negative Heme/Lymph: Negative Objective PRIMARY SURVEY AIRWAY: Patent BREATHING: Breath sounds equal CIRCULATION: PT/DP +2, Radials +2 DISABILITY: Eye: 4=Spontaneous Verbal: 3=Inappropriate Words Motor: 5=Purposeful Movements Total GCS: 11=3 Resp Rate: 10 to 29=4 Syst BP: > than 89=4 REVISED TRAUMA SCORE: 11 EXPOSE / ENVIRONMENT: Warm Blankets PROCEDURES: N/A SECONDARY SURVEY VITALS: BP 147/92 Pulse 84 Temp (!) 37.8 ?C (100 ?F) (Oral) Resp 18 SpO2 98% NEURO: Alert AND Oriented x 0, GCS 11, Cranial Nerves II-XII Intact, Moves All Extremities, Strength Symmetrical, No Sensory Deficits HEENT: Head: No lacerations pos right temporal abrasions, no bony step offs,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 SIGNATURE: Brandee Gleason MD PATIENT NAME: Jaylene Ram DATE: July 17, 2017 TIME: 10:29 AM PAGER/CONTACT #: [id number] Resident's history reviewed. Patient interviewed and examined. Briefly, agree with history as previously documented by residentl Examination of patient was repeated by me. 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 Eye exam +optic nerve atrophy chronic. This can be due to hx of hydrocephalus or can be due to vitamin deficiencies, autoimmune process, etc. Will do additional labs. The labs can be followed outpatient. No evidence of stroke on MRI. Assessment and plan reviewed with resident. 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 Discharge planning per IM team and neurosurgery. For care plan see orders. See resident's note for further details. This was a 80 minute consultation and more than 50% of the visit was spend counseling and coordinating care regarding diagnosis, diagnostic testing, treatment and prognosis. CONSULT Observed: 07/17/2017 Status: COMPLETED Source: [facility] 12:00 AM CLINIC OTHER CAMPUS REPOSITORY HNO ID: [id number] Author: Papi Nunez Service: Ophthalmology Author Type: Physician Type: Consults Filed: 08/06/2017 11:30 AM Note Text: [facility] - Consultation JAYLENE RAM : 1970 AGE: 47 SEX: M ACCTNUM: [id number] [facility]: [facility] [place] LOCATION: [facility] ATTENDING PHYSICIAN: Valerie Orellana M.D. DATE OF CONSULTATION: 07/17/2017 CONSULTING PHYSICIAN: Papi Nunez M.D. HISTORY: The patient is a 47-year-old white male who has a history of increased cerebral pressure and had several shunts. 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 He says he does not read and is somewhat incapacitating for some of the parts of the exam. Visual field shows a normal right eye. Left eye shows a right hemianopsia going to the midline by finger count. Pupils are equal, round, reactive to light. Lid, lashes, and adnexa were normal. Conjunctivae were white. Corneas were clear. Angles looked deep. The lenses were clear. Posterior pole showed a normal disk and vessels in the right eye. The left side showed disk pallor about +1 to 2. 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 The pallor looks old. We would suggest making sure that his cerebral pressure was normal. Papi Nunez M.D. Ophthalmology [id number] /[id number] CONSULT Observed: 07/16/2017 Status: COMPLETED Source: [facility] 11:52 PM CLINIC OTHER CAMPUS REPOSITORY O ID: [id number] Author: Darline Little) Mariano Service: Neurosurgery Author Type: Physician Type: Consults Filed: 07/17/2017 2:55 PM Note Text: CONSULT: NEUROSURGERY SERVICE SERVICE DATE: 07/16/2017 SERVICE TIME: 2351 REASON FOR CONSULT: vision changes, h/o hydrocephalus REQUESTING PHYSICIAN: Dr. 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 Grewal for exposed miniplate AND migrated catheter Pt is a poor historian, AND only AANDO to self All information obtained from available medical records Pt reportedly c/o blurred vision in his L eye for several days Pt reportedly called his mother to ask if he still had his L eye in place Pt was brought by his mother to [facility] ED for eval Pt denies loss of vision, but admits to blurred vision MRI Brain w/wo IVCON dated 07/16/2017: Per radiologist, RESULT: MR BRAIN: Acute Change: ? There is no evidence of restricted diffusion to suggest an acute infarct. Hemorrhage: ? ?No evidence of prior parenchymal hemorrhage on the gradient echo images. Mass Effect / Mass Lesion: There is prominent thickening of dura overlying both hemispheres with associated enhancement, likely the sequela of chronic shunting. ? In addition, there is dural thickening along the tentorial margins. ?This shows maximal diameter at the midline overlying the frontal region of 1.5 cm thickness. ?This corresponds with the areas of chronic soft tissue abnormality in extra-axial spaces of prior CT. Chronic Change: Again appreciated are multiple areas of periventricular white matter FLAIR change at the bodies of the lateral ventricles with associated volume loss. There are chronic changes of prior bilateral parietal craniotomies and right frontal rafi hole. Area of encephalomalacia seen involving the right temporal pole with ex vacuo dilatation of right temporal horn. Parenchyma there is mild cortical volume loss, relative to age. ?There is extreme thinning of the corpus callosum. ?Prominence of the ventricles results in caudal displacement of the cerebellar hemispheres, some mass effect on the midbrain, resulting in obscuration of the aqueduct of Sylvius. Ventricles: See above. ?There is marked enlargement of the lateral and third ventricles. ?Fourth ventricle is normal in size. ?Skull Base: ? ?Hypothalamic and pituitary region are grossly normal. ? Craniocervical junction is normal. No significant marrow replacement process. Vasculature: ? ?Major intracranial arterial structures, and dural venous sinuses show typical flow void, suggesting patency by spin echo criteria. Other: ?The visualized paranasal sinuses and mastoid air cells are clear. ?The orbits and extracranial soft tissues are unremarkable. IMPRESSION: No acute intracranial process. 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 Cortical volume loss, relative to age. CT Brain w/o IVCON dated 07/16/2017: Per radiologist, RESULT: BRAIN: Postoperative change: Bilateral old parietal craniotomies. ?Old right frontal rafi hole for shunt. ?No ventriculostomy on the current exam. Acute change: ? No evidence of an acute infarct or other acute parenchymal process. ? ASPECT Score = 10 Hemorrhage: ? ?Chronic bifrontal subdural collections are present. ?Tiny area of postprocedural pneumocephalus visible on the comparison study has resolved. ?ECASS hemorrhagic transformation score = Not Applicable Mass Lesion / Mass Effect: ? ?No evidence for focal parenchymal mass lesion. Chronic change: ? There is severe generalized brain volume loss, central predominance and severe superimposed communicating hydrocephalus. ?Findings consistent with known history of prior severe traumatic brain injury, with the volume loss and disproportionately at the expense of the white matter. ?Atherosclerotic calcifications are visible involving the V4 segments of the vertebral arteries, cavernous and clinoid segments of both ICAs. Parenchyma: ?There is severe generalized volume loss for age. Ventricles: ? ? Diffuse ventriculomegaly. ?Similar appearance to prior exams. Other: ?Paranasal sinus chambers, mastoid air cells, and middle ear cavities are clear. IMPRESSION: Stable appearing severe brain parenchymal volume loss and extensive hydrocephalus, stable sequela of remote severe traumatic brain injury. ?Old postprocedural changes as noted. CTA Head/Neck w/ IVCON dated 07/16/2017: Per radiologist, NECK: Soft tissues: ? Patient appears cachectic. ?No pathologic adenopathy. Spine: ? Alignment is normal. ?Multilevel cervical bony degenerative change. ?No high-grade central canal stenosis. ?Multilevel foraminal stenosis. Lung apices: ? Airway is patent. ?Lung apices are clear. ?Large apical blebs, but no evidence for apical pneumothorax. CT ARTERIOGRAM: Extracranial Circulation: Aortic Arch: Bovine origin left common carotid artery. ?There is no significant stenosis in the proximal brachiocephalic vessels. ?Vertebral arteries originate normally from the respective subclavian arteries. Carotid Stenosis: Right Common: ?No significant stenosis. Right Internal Carotid ?Plaque: ?Circumferential low-density plaque at the level of the bulb. Right Internal Carotid Stenosis (% by NASCET Criteria): ?60 Left Common: ?No significant stenosis. Left Internal Carotid Plaque: ?Minimal calcified plaque at the bulb. Left Internal Carotid Stenosis (% by NASCET Criteria): ?0 Cervical Vertebral Arteries: Patency: ?Bilateral Dominance: ?Right Intracranial Circulation: Spot Sign Presence: Not Applicable Spot Sign Number: Not Applicable Anterior Circulation: ?Distal internal carotid arteries are normally patent to the carotid terminus. ?Anterior circulation branch vessels are patent. ?No focal high-grade intracranial stenosis, vessel cutoff, filling defect, vascular malformation, or aneurysm. Vertebrobasilar Circulation: ? Small caliber distal vertebral arteries and basilar artery. ?toddler guide are patent. ?Partial origin on the left. Major deep and cortical draining veins and dural venous sinuses show typical contrast enhancement pattern. ?No focal narrowing or abnormal intraluminal filling defect. IMPRESSION: Short segment 60% proximal right ICA stenosis. No carotid stenosis on the left. Vertebral arteries are patent in the neck. Intracranial arterial and venous vasculature is patent. ?No evidence for proximal large vessel occlusion. Neuro exam: Unable to complete exam d/t pt having received 3 mg IV Ativan AANDO times 1-2 stating he'd come to the hospital for his friend Pupils - 3 mm AND PERRL Appears to have clouding of BL lenses of eyes No focal motor weakness identified beyond baseline RUE weakness No focal sensory deficits identified Pt falling asleep during eye exam, but appears he has more difficulty seeing in his L eye Afebrile/VSS Plan: Neurochecks every 4 hours Fall precautions Await Opthalmology eval to see if this primarily an eye issue Further recommendations TBD after eval in AM by Neurosurgeon Subjective Mr. Ram is a 47 year old male who presents for C/O loss of vision in L eye. Pt s/p TBI/SDH requiring BL posterior parietal craniotomies (Resdiual RUE weakness). 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 Shunt removed 09/26/[address] Grewal for exposed miniplate AND migrated catheter. Pt is a poor historian, AND only AANDO to self. All information obtained from available medical records. Pt reportedly c/o blurred vision in his L eye for several days. Pt reportedly called his mother to ask if he still had his L eye in place. Pt was brought by his mother to ED for eval. Pt denies loss of vision, but admits to blurred vision. 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[employer] HEAD START shunt 04/2011 - Seizure disorder (HCC) questionable, on phenytoin, none since 04/2011 - Subdural hematoma, acute (HCC) resolved from TBI - TBI (traumatic brain injury) (HCC) 03/2011 rt sided weakness, hx subarachnoid bleed PAST SURGICAL HISTORY Procedure Laterality Date - DXA BONE DENSITY, AXIAL 03/01/14 Osteopenia - FOOT SURGERY HX 11/25/15 - PAST SURGICAL HISTORY OF 04/2011 HOME VISITOR HOME BASE HEAD START shunt - PAST SURGICAL HISTORY OF prior trach and peg - PAST SURGICAL HISTORY OF correction of PEG complications - TOTAL HIP REPLACEMENT left FAMILY HISTORY Problem Relation Age of Onset - Breast Cancer Paternal Grandmother Social History Substance Use Topics - Smoking status: Current Every Day Smoker Packs/day: 0.50 Years: 20.00 Types: Cigarettes - Smokeless tobacco: Never Used Comment: 6 cigarettes daily. 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 Disp: Rfl: 0 07/16/2017 at 1600 PARoxetine (PAXIL) 40 mg tablet Take 1 tablet by mouth once daily. Disp: 90 tablet Rfl: 3 Unknown at Unknown time B-complex with vitamin C (ALLBEE WITH C) tablet TAKE 1 TABLET BY MOUTH EVERY DAY Disp: 90 tablet Rfl: 3 Unknown at Unknown time ASCORBIC ACID (VITAMIN C ORAL) Take by mouth. Disp: Rfl: Unknown at Unknown time CALCIUM PHOSPHATE DIBAS/VIT D3 (VITAMIN D, WITH CALCIUM, ORAL) Take by mouth. Disp: Rfl: Unknown at Unknown time phenytoin ER (DILANTIN) 30 mg ER capsule Take 130 MG in the morning. Disp: Rfl: Unknown at Unknown time phenytoin SR (DILANTIN EXTENDED) 100 mg ER capsule Take 2 capsules by mouth daily at bedtime. Disp: Rfl: Unknown at Unknown time Ascorbate Calcium 500 mg tab Take 1 tablet by mouth twice daily. Disp: Rfl: 0 Unknown at Unknown time Current hospital medications: iv contrast (radiology procedure) INTRAVENOUS DIRECTED PRN nicotine 14 mg/24 hr 1 Patch (NICODERM) 1 Patch TRANSDERMAL DAILY [START ON 07/17/2017] nicotine -- REMOVE patch OTHER DAILY [START ON 07/17/2017] nicotine - verify patch OTHER q 8 H iv contrast (radiology procedure) INTRAVENOUS DIRECTED PRN NaCl 0.9% iv infusion 75 mL/hr INTRAVENOUS CONTINUOUS acetaminophen 650 mg tab(s) (TYLENOL) 650 mg ORAL q 6 H PRN heparin 5,000 Units injection 5,000 Units SUBCUTANEOUS q 12 H [START ON 07/17/2017] aspirin 81 mg chewable tab(s) 81 mg ORAL DAILY Allergies As of Date: 07/16/2017 (No Known Allergies) Fully Assessed 07/16/2017 COMPLETE REVIEW OF SYSTEMS: Unable to obtain d/t pt mental status Objective PHYSICAL EXAM: Physical Exam Performed: GENERAL: Cooperative, falls asleep quickly LUNGS: Breathing unlabored CARDIAC: Normal S1 and S2 ABDOMEN: Abdomen soft, non-tender EXTREMITIES: No ulcers NEURO: Unable to complete exam d/t pt having received 3 mg IV Ativan AANDO times 1-2 stating he'd come to the hospital for his friend Pupils - 3 mm AND PERRL Appears to have clouding of BL lenses of eyes No focal motor weakness identified beyond baseline RUE weakness No focal sensory deficits identified Pt falling asleep during eye exam, but appears he has more difficulty seeing in his L eye PULSES: 2+ radial, 2+ carotid Remainder of the exam is negative on a 10 point system review unless mentioned in assessment/plan. BP 134/86 Pulse 86 Temp (Src) 98.8 (Oral) Resp 18 Ht 5' 6 (1.68m) Wt 110 lb (49.9kg) SpO2 97% BMI 17.76 kg/(m2). DATA: Diagnostic tests reviewed for today's visit: Most recent labs and imaging results. SIGNATURE: Zane Calderon CNP PATIENT NAME: Jaylene Ram DATE: July 16, 2017 TIME: 11:52 PM PAGER: Staff addendum is a pleasant 46 years old male admitted with history of left eye visual dysfunction. Poor historian. History of TBI with SDH and bilateral posterior parietal craniotomies (with residual RUE weakness) in the past as well as a shunt placement in 2010. Malfunctioned shunt was removed in 2016. ? CT /CTA brain showed stable appearing severe brain parenchymal volume loss and hydrocephalus. Short segment 60% proximal right ICA stenosis. No carotid stenosis on the left. Awaiting opthalmology opinion No acute neuro surgical intervention Darline Grewal MD Staff, Neurosurgery NURSING PROG Observed: 07/16/2017 Status: COMPLETED Source: [facility] 11:10 PM CLINIC OTHER CAMPUS REPOSITORY HNO ID: [id number] Author: Lilibeth (Rn) DERIC Carter Service: Nursing Author Type: Registered Nurse Type: Nursing Progress Note Filed: 07/17/2017 12:24 AM Note Text: Nursing Progress Note Patient Name: Jaylene Ram Patient Location: [place] [id number] [address] Transfer Note: Patient transferred into room/unit TC- in stable condition. Actions taken: Oriented pt to room/call light/nurse call light. Pt drowsy from getting 3mg Ativan in ED. Denies pain, VSS. Pt is on room air. Pt oriented to self. PERRLA. Pt was incontinent of urine in his own clothes, Changed patient into clean clothes, and washed him up. Will continue to monitor. Fall and safety precautions in place. This note was completed by: Lilibeth Carter RN MRI BRAIN WO/W Observed: 07/16/2017 Status: F Source: SHE[facility] IVCON 10:06 PM CLINIC OTHER CAMPUS REPOSITORY * * *Final Report* * * DATE OF EXAM: Jul 16 2017 10:06PM [facility] [id number] - MRI BRAIN WO/W IVCON / PROCEDURE REASON: Loss of vision * * * * Physician Interpretation * * * * MRI BRAIN WO/W IVCON HISTORY: Loss of vision, myomatous hemianopsia. History of remote traumatic brain injury 2007 COMPARISON: CT 07/16/2017 MR Contrast: Dotarem Contrast Dose: 10CC Route of Administration: IV RESULT: MR BRAIN: Acute Change: There is no evidence of restricted diffusion to suggest an acute infarct. Hemorrhage: No evidence of prior parenchymal hemorrhage on the gradient echo images. Mass Effect / Mass Lesion: There is prominent thickening of dura overlying both hemispheres with associated enhancement, likely the sequela of chronic shunting. In addition, there is dural thickening along the tentorial margins. This shows maximal diameter at the midline overlying the frontal region of 1.5 cm thickness. This corresponds with the areas of chronic soft tissue abnormality in extra-axial spaces of prior CT. Chronic Change: Again appreciated are multiple areas of periventricular white matter FLAIR change at the bodies of the lateral ventricles with associated volume loss. There are chronic changes of prior bilateral parietal craniotomies and right frontal rafi hole. Area of encephalomalacia seen involving the right temporal pole with ex vacuo dilatation of right temporal horn. Parenchyma there is mild cortical volume loss, relative to age. There is extreme thinning of the corpus callosum. Prominence of the ventricles results in caudal displacement of the cerebellar hemispheres, some mass effect on the midbrain, resulting in obscuration of the aqueduct of Sylvius. Ventricles: See above. There is marked enlargement of the lateral and third ventricles. Fourth ventricle is normal in size. Skull Base: Hypothalamic and pituitary region are grossly normal. Craniocervical junction is normal. No significant marrow replacement process. Vasculature: Major intracranial arterial structures, and dural venous sinuses show typical flow void, suggesting patency by spin echo criteria. Other: The visualized paranasal sinuses and mastoid air cells are clear. The orbits and extracranial soft tissues are unremarkable. IMPRESSION: No acute intracranial process. 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 Sequela of chronic shunting with mass effect and pachymeningitis. Cortical volume loss, relative to age. Filler Room Attendant: PSCB Transcribe Date/Time: Jul 16 2017 10:36P Dictated by : CATHERINE BREWER MD This examination was interpreted and the report reviewed and electronically signed by: CTAHERINE BREWER MD on Jul 16 2017 10:45PM EST [id number] ED NOTE Observed: 07/16/2017 Status: COMPLETED Source: [place] 9:58 PM [facility] REPOSITORY HNO ID: [id number] Author: Renan De La TorreRn) DERIC Woods Service: (none) Author Type: Registered Nurse Type: ED Notes Filed: 07/16/2017 9:58 PM Note Text: Report called to DERIC Mcelroy. ED NOTE Observed: 07/16/2017 Status: COMPLETED Source: [place] 9:54 PM [facility] REPOSITORY HNO ID: [id number] Author: Renan Luna) DERIC Woods Service: (none) Author Type: Registered Nurse Type: ED Notes Filed: 07/16/2017 9:59 PM Note Text: Pt to MRI again at this time. Mother at bedside. HISTORY PHYSICAL Observed: 07/16/2017 Status: COMPLETED Source: [place] 9:05 PM [facility] [place] REPOSITORY HNO ID: [id number] Author: Keyon Ortega Service: Hospital Medicine Author Type: Physician Type: HANDP Filed: 07/16/2017 9:39 PM Note Text: DEPARTMENT OF HOSPITAL MEDICINE HISTORY AND PHYSICAL EXAM SERVICE DATE: 07/16/2017 SERVICE TIME: 9:05 PM Primary Care Physician: Arti Acosta DO NIGHT AND WEEKEND COVERAGE: Please page me at [phone] with any question between 5 pm-8 am. Afterwards, page the assigned team. Subjective CHIEF COMPLAINT: Blurry vision HPI: This is a 47 year old male with Hx of TBI, SDH, hydrocephalus s/p shunt and short memory loss who presents with blurry vision/vision loss. He has been having blurry vision in his left eyes for few days. He called his mother this morning to ask her if he still has his left eye in place. His mother decided to bring him to the hospital for further evaluation. Patient is poor historian and history collected from mother. Mother denies any other complains. No weakness, facial droop, tingling, or numbness. Patient has some residual in his right side from previous TBI. Patient can walk with limb using a walker. No injury to the eye or the head reported recently. On my questions after patient came back from MRI, denies any vision problem. REVIEW OF SYSTEM: Review of Systems Constitutional: Negative for chills, diaphoresis and fever. HENT: Negative for congestion and sore throat. Eyes: Positive for blurred vision. Negative for photophobia and redness. Respiratory: Negative for cough, sputum production and shortness of breath. Cardiovascular: Negative for chest pain, palpitations, orthopnea and PND. Gastrointestinal: Negative for abdominal pain, nausea and vomiting. Genitourinary: Negative for dysuria and urgency. Musculoskeletal: Negative for falls and myalgias. Neurological: Negative for dizziness, loss of consciousness and headaches. Psychiatric/Behavioral: Negative for depression and hallucinations. 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ASE HEAD START shunt 04/2011 - Seizure disorder (HCC) questionable, on phenytoin, none since 04/2011 - Subdural hematoma, acute (HCC) resolved from TBI - TBI (traumatic brain injury) (HCC) 03/2011 rt sided weakness, hx subarachnoid bleed PAST SURGICAL HISTORY Procedure Laterality Date - DXA BONE DENSITY, AXIAL 03/01/14 Osteopenia - FOOT SURGERY HX 11/25/15 - PAST SURGICAL HISTORY OF 04/2011 HOME [employer]IS[employer] HOME BASE HEAD START shunt - PAST SURGICAL HISTORY OF prior trach and peg - PAST SURGICAL HISTORY OF correction of PEG complications - TOTAL HIP REPLACEMENT left FAMILY HISTORY Problem Relation Age of Onset - Breast Cancer Paternal Grandmother Social History Substance Use Topics - Smoking status: Current Every Day Smoker Packs/day: 0.50 Years: 20.00 Types: Cigarettes - Smokeless tobacco: Never Used Comment: 6 cigarettes daily. 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 HENT: Dry oral mucosa Eyes: Pupils are equal, round, and reactive to light. Right eye exhibits no discharge. Neck: Normal range of motion. Neck supple. Cardiovascular: Normal rate and regular rhythm. No murmur heard. Pulmonary/Chest: Effort normal and breath sounds normal. No respiratory distress. He has no wheezes. He has no rales. Abdominal: Soft. He exhibits no distension. There is no tenderness. Musculoskeletal: Right leg is shorter than left (born defect) Lymphadenopathy: He has no cervical adenopathy. Neurological: He is alert. Oriented x 2. Does not follow commands. He got almost all the numbers that I showed him on my fingers wrong. So it difficult to assess any eye problem. No new motor weakness (has some residual right motor weakness). Cranial nerves grossly intact. DATA: Diagnostic tests reviewed for today's visit: Most recent labs and imaging results. Assessment/Plan Blurry vision, left eye Vision loss Eye and neurological exam is difficult to perform sec to patient's mental status. After he denies any vision problem after coming back from MRI. Neuro conulted in the ED and recommended MRI. Ophthalmo consulted and they will see him tomorrow. Supportive care in the mean while Follow neuro and ophthalmology for any recommendations. Seizure disorder Continue home meds Subdural hematoma TBI (traumatic brain injury) Hydrocephalus s/p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 Abdominal: Soft. Bowel sounds are normal. He exhibits no distension. There is no tenderness. Musculoskeletal: Normal range of motion. He exhibits no edema or tenderness. Neurological: He is alert and oriented to person, place, and time. He has normal strength. No cranial nerve deficit or sensory deficit. GCS eye subscore is 4. GCS verbal subscore is 5. GCS motor subscore is 6. AANDO x2 (at baseline). No cranial nerve deficits. Sensation/motor intact in upper and lower extremities. No dysmetria or ataxia. R leg is shorter than other extremity ( defect) so pt limps with ambulation. Skin: Skin is warm and dry. No rash noted. He is not diaphoretic. Psychiatric: His behavior is normal. Thought content normal. Nursing note and vitals reviewed. Diagnostic Testing ED Labs Ordered and Reviewed CBC + AUTO DIFF (AK,AV,EU,FV,HL,CRISTIAN,MM,SP) - Abnormal; Notable for the following: Result Value Ref Range MPV 8.8 (*) 9.0 - 12.7 fL All other components within normal limits COMPREHENSIVE METABOLIC PANEL (AK,AV,EU,FV,HL,CRISTIAN,MM,SP) - Abnormal; Notable for the following: Alkaline Phosphatase 184 (*) 40 - 150 U/L BUN 6 (*) 10 - 25 mg/dL Creatinine 0.52 (*) 0.70 - 1.40 mg/dL Potassium 3.4 (*) 3.5 - 5.0 mmol/L All other components within normal limits ACTIVATED PTT (AK,AV,EU,FV,HL,CRISTIAN,MM,SP) PROTHROMBIN TIME / PT (AK,AV,EU,FV,HL,CRISTIAN,MM,SP) TROPONIN T (AV,EU,FV,HL,CRISTIAN,MM,SP) Procedures Medical Decision Making / ED Course ED Course Others' Documentation Comment By Time EKG normal sinus rhythm rate [address] segment changes normal intervals Bailey Garcia MD 07/16 0861 Course: Vital signs were reviewed. Triage records were reviewed. Medical records were reviewed. Nursing notes were reviewed and incorporated. ? Labs reviewed and interpreted as CBC - No evidence of significant anemia, infection, or thrombocytopenia. CMP - No ANETA or metabolic disturbances. No transaminitis. Cardiac enzymes negative. ? Radiographs were reviewed CT Brain: IMPRESSION: Stable appearing severe brain parenchymal volume loss and extensive hydrocephalus, stable sequela of remote severe traumatic brain injury. ? Old postprocedural changes as noted. Short segment 60% proximal right ICA stenosis. No carotid stenosis on the left. Vertebral arteries are patent in the neck. Intracranial arterial and venous vasculature is patent. ?No evidence for proximal large vessel occlusion. CTA Head/Neck: IMPRESSION: Stable appearing severe brain parenchymal volume loss and extensive hydrocephalus, stable sequela of remote severe traumatic brain injury. ? Old postprocedural changes as noted. Short segment 60% proximal right ICA stenosis. No carotid stenosis on the left. Vertebral arteries are patent in the neck. Intracranial arterial and venous vasculature is patent. ?No evidence for proximal large vessel occlusion. 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 Pt is a poor historian and history provided by mother at bedside. HPI as noted above. Exam as noted. Patient is in NAD, hemodynamically stable and non-toxic in appearance in the ED. On exam, patient has questionable loss of vision in L medial and R temporal visual field deficits concerning for right homonymous hemianopsia, however, exam was limited due to patient's cognitive deficits and short-term memory loss. No other focal neurological deficits noted. Labs are unremarkable. CT Brain demonstrates stable extensive hydrocephalus and brain parenchymal volume loss. CTA Brain/Neck does not demonstrate any acute changes concerning for aneurysm or dissection. The case was discussed with neurology who recommended MRI to evaluate for CVA. I discussed the findings and concerns with the patient and mother and patient states I am leaving. I want to go home. The risks of leaving AMA was discussed with the patient including worsening of symptoms/condition and and asked if the patient could verbalize the risks that we discussed but he could not and states i don't know. I want to go home. I do not feel that the patient has the capacity to make his own medical decisions. I discussed the case with the hospitalist who is asking that we consult opthalmology. The case was discussed with Dr. Nunez who will see the patient tomorrow on the floor and the hospitalist is aware. The patient will be admitted to neuro floor for further evaluation and management with neurology and opthalmology consult. 2003: Pt was given 1mg of Ativan prior to MRI but unable to obtain scan since patient is combative and won't cooperate. 2199: Pt was given 2 mg of Ativan prior to MRI and was able to obtain the imaging study. 2255: Upon reevaluation, patient is attempting to put on his shoes and states I am leaving. Pt is becoming verbally aggressive and is currently yelling at his mother. Pt attempting to get up out of bed. Pt was given haldol 5 mg. Pt now resting comfortably in bed and is no longer aggressive. Pt resting comfortably during transfer to the floor. Pending MRI. Encounter Diagnosis ICD-10-CM 1. Right homonymous hemianopsia H53.461 2. Blurry vision, left eye H53.8 3. Seizure disorder (HCC) G40.909 4. Subdural hematoma (HCC) I62.00 5. Vision loss H54.7 Plan The Patient was ADMITTED TO: Regular nursing floor. 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 My rebollar findings include: Difficult case, pt with hx of brain inj, poor short term memory, difficult exam. However reports vision changes for 2-3 days. On both my exam and PA exam, while limited, found right homonymous hemianopsia. Work up for stroke as above. Admit. Pt has limited capacity to make his own decisions, doesn't understand risk/benefits clearly. Signature: Bailey Garcia MD Date: 07/18/17 Time: 9:53 AM Bailey Garcia MD 07/18/17 0954 CBC AND DIFFERENTIAL Collected: 07/16/2017 Status: F Source: [facility] 2:45 PM CLINIC OTHER CAMPUS REPOSITORY TYPE CODE TESTS RESULT OUT OF REFERENCE UNITS RANGE LAB WBC 3.70-11.00 k/uL WBC 8.55 LAB RBC 4.20-6.00 m/uL RBC 4.27 LAB HGB 13.0-17.0 g/dL Hemoglobin 13.5 LAB HCT 39.0-51.0 % Hematocrit 39.3 LAB MCV 80.0-100.0 fL MCV 92.0 LAB MCH 26.0-34.0 pG MCH 31.6 LAB MCHC 30.5-36.0 g/dL MCHC 34.4 LAB RDWCV 11.5-15.0 % RDW-CV 13.5 LAB PLTCT 150-400 k/uL Platelet Count 382 LAB MPV 9.0-12.7 fL Low MPV 8.8 LAB NEUTS % Neut% 61.2 LAB AANEUT 1.45-7.50 k/uL Abs Neut 5.23 LAB LYMPHS % Lymph% 29.7 LAB AALYMP 1.00-4.00 k/uL Abs Lymph 2.54 LAB MONOS % [place]% 7.1 LAB AAMONO <0.87 k/uL Abs [place] 0.61 LAB EOS % Eosin% 1.6 LAB AAEOS <0.46 k/uL Abs Eosin 0.14 LAB BASOS % Baso% 0.4 LAB AABASO <0.11 k/uL Abs Baso 0.03 LAB DTYP DTYPE Auto Diff Performed By: #### CBCDIF, CMP, PT, PTT #### [facility] [address] [place] [address] COMP METABOLIC PANEL Collected: 07/16/2017 Status: F Source: [facility] 2:45 PM CLINIC OTHER CAMPUS REPOSITORY TYPE CODE TESTS RESULT OUT OF REFERENCE UNITS RANGE LAB TP 6.0-8.4 g/dL Protein, Total 6.5 LAB ALB 3.5-5.0 g/dL Albumin 4.0 LAB CA 8.5-10.5 mg/dL Calcium, Total 8.8 LAB TBIL 0.0-1.5 mg/dL Bilirubin, Total <0.2 LAB ALKP 40-150 U/L Alkaline High Phosphatase 184 LAB AST 7-40 U/L AST 14 LAB GLU 65-100 mg/dL Glucose 88 LAB BUN 10-25 mg/dL BUN Low 6 LAB CRET 0.70-1.40 mg/dL Creatinine Low 0.52 LAB NA 135-146 mmol/L Sodium 138 LAB K 3.5-5.0 mmol/L Potassium Low 3.4 LAB CL 98-110 mmol/L Chloride 98 LAB CO2 23-32 mmol/L CO2 31 LAB AGAP 9-18 mmol/L Anion Gap 9 LAB ALT 5-50 U/L ALT 11 LAB GFRAA >60 eGFR- >60 Amer. LAB GFRNAA >60 . eGFR-All Other Races >60 Performed By: #### CBCDIF, CMP, PT, PTT #### [place] [id number] [place] [id number] PROTIME Collected: 07/16/2017 Status: F Source: [facility] 2:45 PM CLINIC OTHER CAMPUS REPOSITORY TYPE CODE TESTS RESULT OUT OF RANGE REFERENCE UNITS LAB PSEC 9.7-13.0 sec PT Sec 10.4 LAB INR 0.9-1.3 PT INR 1.0 Result Comment: Vitamin K Antagonist (VKA) Therapeutic Range: INR 2 to 3 (Target INR of 2.5) Note: For patients treated with VKA drugs, such as warfarin, the [place] [employer] 2012 Guideline recommends a therapeutic INR range of 2 to 3 (target INR of 2.5). This recommendation includes high-risk patients with antiphospholipid syndrome with previous arterial or venous thromboembolism, current-generation mechanical or bioprosthetic aortic heart valve replacement. Note: Patients with mechanical aortic valve replacement and additional risk factors for thromboembolic events (atrial fibrillation, previous thromboembolism, LV dysfunction, hypercoagulable conditions) or an older generation mechanical AVR (i.e., ball in-Cage) or any mechanical MVR should have a INR therapeutic range of 2.5 to 3.5 (target INR of 3). Demarcus GH, et al. Chest 2012, 141:7S-47S Cathy BRYANT et al. [facility] 2017, 70: 252-289 Performed By: #### CBCDIF, CMP, PT, PTT #### [place] [id number] [place] [id number] APTT Collected: 07/16/2017 Status: F Source: [facility] 2:45 PM [facility] OTHER [place] REPOSITORY TYPE CODE TESTS RESULT OUT OF RANGE REFERENCE UNITS LAB APTT 23.0-32.4 sec APTT 25.2 Result Comment: Unfractionated Heparin Therapeutic Ranges: Standard Heparin Nomogram: 53 to 78 seconds (anti-Xa level of 0.3 to 0.7 U/ml) Low Dose/ACS Nomogram: 49 to 67 seconds (anti-Xa level of 0.2 to 0.5 U/ml) Stroke Treatment Nomogram: 49 to 67 seconds (anti-Xa level of 0.2 to 0.5 U/ml) Note: The APTT therapeutic range has been determined for the current lot of laboratory APTT reagent in use throughout the [facility]. Performed By: #### CBCDIF, CMP, PT, PTT #### [place] [address] TROPONIN T Collected: 07/16/2017 Status: F Source: [facility] 2:45 PM CLINIC [facility] REPOSITORY TYPE CODE TESTS RESULT OUT OF REFERENCE UNITS RANGE LAB TROPT 0.000-0.029 ng/mL Troponin T <0.010 Performed By: #### ANANDA #### [place] [address] ED NOTE Observed: 07/16/2017 Status: COMPLETED Source: [place] 2:29 PM [facility] REPOSITORY HNO ID: [id number] Author: Zehra (Rn) DERIC Leavitt Service: (none) Author Type: Registered Nurse Type: ED Notes Filed: 07/16/2017 2:33 PM Note Text: Patient presents to the ED for complaints of loss of vision in his left ear this morning. A shunt has been removed in September but a piece is still remaining. Vision is blurry. Sensation intact. ALLERGIES ALLERGIES DATE TYPE / CODE NAME / CODE REACTION SEVERITY SOURCE 05/11/2018 Drug No Known Unknown [facility] Allergy/416 Allergies/H40689 [facility] 837978(SNOM 0388(RXNORM) Repository ED CT) Drug NO KNOWN [facility] Class/47101 ALLERGIES Other [place] 1003(SNOMED Repository CT) ENCOUNTERS ENCOUNTERS ADMIT/DISCHARGE ACCOUNT NUMBER ADMITTING ENCOUNTER LOCATION SOURCE CLASS 05/11/2018/05/13/20 [id number] [place], Ambulatory [facility] Hospital ing:PCURoom: Repository NOK010Zny: 1 05/11/2018 [id number] [place], Ambulatory BMSBuilding:Ava Patterson MS.[facility] Repository 05/11/2018 [id number] [place], Ambulatory BMSBuilding:Ava Patterson MS.[facility] Repository 05/11/2018 [id number] [place], Ambulatory BMSBuilding:Ava Patterson MS.[facility] Repository 04/29/2018 [id number] Ambulatory 7 [facility] Healthcare Repository 03/28/2018/03/28/20 [id number] Ambulatory [address] Repository 01/04/2018/01/05/20 [id number] Emergency [address] ing:ED Repository 12/26/2017 [id number] Ambulatory [address] [place] [address] Repository 12/25/2017 [id number] Ambulatory [address] [place] [address] Repository 12/24/2017/12/28/[id number] Repository nSRoom: 922Bed: 922-01 12/19/2017 [id number] Ambulatory [address] [place] [address] Repository 12/19/2017 [id number] Ambulatory [address] [place] [address] Repository 12/14/2017 [id number] Ambulatory [address] [place] [address] Repository 12/12/2017/12/18/19 [id number] Emergency [address] Repository ng:EERRoom: MH59Dkv: ER22-C 12/12/2017 [id number] Ambulatory [address] [place] [address] Repository 11/25/2017/12/04/19 [id number] [place] [address] EVERARDO LITTLE) [facility] Repository 11/25/2017/11/26/19 [id number] Emergency [address] Repository ng:EERRoom: NH61Tph: ER03-A 11/25/2017 [id number] Ambulatory [address] [place] [address] Repository 10/14/2017/10/19/19 [id number] Ambulatory [address] Repository 09/07/2017 [id number] Ambulatory [facility] Repository 08/06/2017 [id number] Ambulatory [address] [place] [address] Healthcare Repository 08/06/2017 [id number] Ambulatory [address] [place] [address] Repository 07/17/2017/07/17/[id number] Repository PAYERS PAYERS ENCOUNTER GUARANTOR PAYER SUBSCRIBER SOURCE 05/11/2018 JAYLENE Barber Primary JAYLENE RAMCOUNTRY Insurance:MYCARE WARNERDOB: Community [place] [id number] *[place] [id number] Repository [place] [address]Lti: 330 [id number] [phone] () Date:7560-43-92LG [address] [place] [address] 98418LT: 05/11/2018 Secondary NOT GIVENUNK Kaylyn Insurance:SELF PAY [facility]: Effective Repository Date:2018-05-11 05/11/2018 JAYLENE H Primary JAYLENE H [place] WARNERCOUNTRY Insurance:MYCARE WARNERDOB: Community [place] [id number] *[place] [id number] [facility]: Repository [place] [address]Htw: 330 [id number] [phone] () Date:2000-18-23BB [address] [place] [address] 28115FL: 05/11/2018 Secondary NOT GIVENUNK [place] Insurance:SELF PAY [facility]: Effective Repository Date:2018-05-11 05/11/2018 JAYLENE H Primary JAYLENE H [place] WARNERCOUNTRY Insurance:MYCARE WARNERDOB: Community [place] [id number] *[place] [id number] [facility], [facility]: Repository [place] [address]Rsf: 330 [id number] [phone] () Date:8508-19-21CA [address] [place] [address] 46245SG: 05/11/2018 Secondary NOT GIVENUNK [place] Insurance:SELF PAY [facility] Number: Effective Repository Date:2018-05-11 05/11/2018 JAYLENE H Primary JAYLENE H [place] WARNERCOUNTRY Insurance:MYCARE WARNERDOB: Community [place] [id number] *[place] [id number] Health, [facility] Hospital[facility] Number: Repository [place] [id number]: 330 [id number] [phone] (HP) Date:0382-53-11PA [address] [place] [address] 34171RH: 05/11/2018 Secondary NOT GIVENUNK [place] Insurance:SELF PAY [facility] Number: Effective Repository Date:2018-05-11 04/29/2018 JAYLENE L LEANNADOB: Primary JAYLENE L [facility] Insurance:MEDICAL WARNERDOB: [place] [facility] [id number] [place] [address]Wah: (440) [place]^L^247^^^[id number]^X 1 [place] [phone] (HP) XPolicy Number: [place] [id number] [address]Oqx: (440) Date:Plan [id number] (HP) Name:[facility] [address], [place] [address]FF: 01/04/2018 JAYLENE Primary JAYLENE [place] WARNERCOUNTRY Insurance:MCLAREN FLINTB: [facility] [id number] *[place] [id number] Hospital Number: Repository [place] [address]Cjr: 330 [id number] [phone] (HP) Date:4921-37-37MX [address] [place] [address] 77752MJ: 01/04/2018 Secondary NOT GIVENUNK [place] Insurance:SELF PAY [facility] Number: Effective Repository Date:2018-01-04 12/26/2017 JAYLENE WARNERDOB: Primary [facility] [id number] Insurance:Daysi RAMDOB: [facility] KALEN, [facility] [id number] Repository [place] [address]Nmi: 440) Number: [phone] [phone] (HP) [id number] [facility] Date:Plan Name:Health [address]Ikk: (HP) 12/25/2017 JAYLENE RIVERAB: Primary [facility] Insurance:Daysi RAMDOB: [facility] [id number] Repository [place] [address]Cra: (440) Number: [address] [phone] (HP) [id number] [place] Date:Plan Name:Health [address]Ylg: (HP) 12/24/2017 JAYLENE RIVERAB: Primary [facility] Insurance:DAYSI MCCALLTRUPTIB: Repository [facility] [id number] [place] [address]Yxy: (440) HEALTH^L^229^^^[id number] [address] [phone] (HP) ^XXPolicy Number: [place] [id number]: (440) Date:Plan [phone] (HP) Name:[address] [id number]: 12/19/2017 JAYLENE MCCALLTRUPTIB: Primary [facility] Insurance:Daysi RAMB: [facility] [id number] Repository [place] [address]Nlz: (440) Number: [address] [phone] (HP) [id number] [place] Date:Plan Name:Health [id number]: (HP) 12/19/[address] [facility] Insurance:Jerome WARCLARISSEDOB: [facility] [id number] Repository SecondaryPolicy [address] Number: [place] [id number]: (440) Date:Plan Name:Health [phone] (HP) 12/19/2017 JAYLENE WARTRUPTIB: Primary [facility] LEANNADOB: [facility] Number: [id number] Repository [place] [address]Aur: [phone] [address] [phone] (HP) Date:Plan Name:[place], [place] [address]Kjr: (HP) 12/14/2017 JAYLENE Barber NICOLEB: Primary [facility] Insurance:Daysi MCCALLTRUPTIB: [facility] [id number] Repository [place] [address]Qqy: (440) Number: [address] [phone] () [id number] [place] Date:Plan Name:Health [address]Czq: (HP) 12/14/[address] [facility] Insurance:Jerome WARCLARISSEB: [facility] [id number] Repository Number: [address] [id number] [place] Date:Plan Name:Health [address]Wpf: (HP) 12/14/[address] [facility] Insurance:Daysi RAMDOB: [facility] [id number] Repository SecondaryPolicy [address] Number: [place] [id number]: (440) Date:Plan Name:Health [phone] () 12/14/[address] [facility] Insurance:Daysi RAMDOB: [facility] [id number] Repository SecondaryPolicy [address] Number: [place] [id number] [address]Suv: (440) Date:Plan Name:Health [phone] () 12/12/2017 JAYLENE H NICOLEB: [facility] Insurance:DAYSI NICOLEB: Repository [facility] [id number] [place] [address]Xus: (440) HEALTH^L^229^^^[id number] [address] [phone] (HP) ^XXPolicy Number: [place] [id number] [address]Nzo: (440) Date:Plan [phone] (HP) Name:[address] [id number]: 12/12/2017 JAYLENE NICOLEB: Primary [facility] Insurance:Jerome CALCLARISSEDOB: [facility] [id number] Repository [place] [address]Tfu: (440) Number: [address] [phone] () [id number] [place] Date:Plan Name:[facility] [address]Pul: () 12/12/2017 Secondary [facility] Insurance:Jerome [facility]: [facility] [id number] Repository Number: [address] [id number] [place] Date:Plan Name:[facility] [address]Cht: () 12/12/2017 [facility]ly [facility] Insurance:Jerome [facility]: [facility] [id number] Repository SecondaryPolicy [address] Number: [place] [id number] [address]Kzf: (440) Date:Plan Name:[facility] [phone] () 12/12/2017 [facility]ly [facility] Insurance:Jerome WARNERDOB: [facility] [id number] Repository SecondaryPolicy [address] Number: [place] [id number]: (440) Date:Plan Name:Health [phone] () 11/25/2017 JAYLENE RIVERAB: [facility] Insurance:BUCKEYE LEANNADOB: [facility] [address] [facility] [id number] [place] [address]Vca: (440) HEALTH^L^229^^^[id number] [address] [phone] (HP) ^XXPolicy Number: [place] [id number] [address]Ugg: (440) Date:Plan (HP) Name:[place] [address]toineNOKOMIS [place] [id number]: 11/25/2017 JAYLENE NICOLEB: Primary [facility] Insurance:Jerome CALTRUPTIB: [facility] [id number] Repository [place] [address]Iyf: (440) Number: [address] [phone] () [id number] [facility] [place] Date:Plan Name:[facility] [address]Int: () 11/25/2017 [facility] Insurance:Daysi RIVERAB: [facility] [id number] Repository SecondaryPolicy [address] Number: [place] [id number] [address]Rai: (440) Date:Plan Name:Health [phone] () 09/07/2017 JAYLENE H NICOLEB: [facility] Insurance:DAYSI MCCALLTRUPTIB: Repository [facility] [id number] [place] [address]Rsk: (440) HEALTH^L^229^^^[id number] [address] [phone] (HP) ^XXPolicy Number: [place] [id number]: (440) Date:Plan (HP) Name:[facility] GOGO DOTSON [id number]: 08/06/2017 JAYLENE RIVERAB: [facility] Insurance:[facility]: Repository [facility] [id number] [place] [address]Vas: (440) [place]^L^247^^^[id number]^X 1 [place] [phone] (HP) XPolicy Number: [place] [id number]: (440) Date:Plan [phone] (HP) Name:[facility] [address] [place] [address] [id number]: 08/06/2017 CROSS TIM[place]ERS NICOLE: [facility] Insurance:[facility]: [facility] [id number] Repository [place] [address]Eto: (440) Number: [address] [place] [address] [phone] () [id number] [place] Date:Plan Name:Health [address]Bug: ()
== END 2018-05-13 10:28 | disposition home or self-care (01) ==
LOC: ED 23:42 → PCU 05-12 00:09
PROVIDERS: Admitting Provider Hospitalist; Emergency Provider Emergency Medicine; Family Provider Family Medicine; PCP Family Medicine; Visit Provider Internal Medicine
DX: R53.83 Other fatigue (principal); T42.0X5A Adverse effect of hydantoin derivatives, initial encounter; G40.909 Epilepsy, unspecified, not intractable, without status epilepticus; I10 Essential (primary) hypertension; Z79.899 Other long term (current) drug therapy; Z79.82 Long term (current) use of aspirin; E87.6 Hypokalemia; E16.2 Hypoglycemia, unspecified; E86.0 Dehydration; F32.9 Major depressive disorder, single episode, unspecified; R74.8 Abnormal levels of other serum enzymes; I69.051 Hemiplegia and hemiparesis following nontraumatic subarachnoid hemorrhage affecting right dominant side; I73.9 Peripheral vascular disease, unspecified; I48.91 Unspecified atrial fibrillation; F17.210 Nicotine dependence, cigarettes, uncomplicated
CPT/HCPCS: 71046; 80053; 80185; 81001; 82962; 85025; 96360; 96361; 96372; 97802; 99218; 99285; 99406; J7030; P9612; A4216; G0378; J7799

== ENCOUNTER 2018-08-03 10:12 | Emergency (ER) | payer MEDICARE, SELFPAY ==
[2018-05-12 00:27] VITALS: BMI 19.5
[2018-08-03 10:16] VITALS: BP 138/79; PULSE 73; RESP 18; TEMP 36.7; O2SAT 97; BMI 22.6
--- NOTE | 2018-08-03 10:35 | CT_ITS ---
STUDY: CT ORBITS WITHOUT CONTRAST REASON FOR EXAM: Male, 48 years old. Left eye swelling since last night RADIATION DOSAGE (If Supplied By Facility): CTDIvol = ( 29.38 ) mGy, DLP = ( 363.81 ) mGycm TECHNIQUE: The patient was scanned in a multi detector CT scanner. Transaxial imaging was performed without the administration of intravenous contrast material. Sagittal and coronal images were reconstructed. Individualized dose optimization techniques were used for this CT. COMPARISON: None. FINDINGS: Normal globes. There is intraorbital air. Normal optic nerve sheath complex. Normal bilateral extraocular muscles. Normal lacrimal glands. There is extensive subcutaneous emphysema of the left periorbital, malar and deep left neck soft tissues extending to the retropharyngeal space. Mildly displaced fractures of the lateral left maxillary sinus wall, left lateral orbital wall identified. There is mild displacement of the anterior left maxillary sinus wall fractures. There is inward buckling of the left zygomatic arch. There are mildly comminuted fractures of the left orbital floor without significant inferior displacement. The inferior rectus muscle is normally positioned. There is no obvious herniation of intraorbital fat into the maxillary sinus. There is an air-fluid level in the left maxillary sinus. The pterygoid plates are intact. The temporomandibular joints are symmetric, other than air adjacent to the left temporomandibular joint. There is dilation of the third and lateral ventricles, partially visualized. A right bronson bullosa is noted. CT/Orb Sella Post Fossa Ear w/o IMPRESSION: 1. Left lateral and orbital floor fractures. No obvious herniation of the infraorbital nerve/entrapment on CT. 2. Left lateral and anterior maxillary sinus fractures. 3. Buckling of the left zygomatic arch, age indeterminate. 4. Extensive left facial and intraorbital air extending to the retropharyngeal space. Electronically Signed: Joce Kidd MD at 11:21 EDT , Service support ,
--- NOTE | 2018-08-03 11:51 | ED.VISSUMM ---
- ER Visit Summary Date of Service: 08/03/18 Chief Complaint: Eye injury History of Present Illness: The patient is a 48 M who presents with left eye injury. Unknown mechanism the healthcare worker noticed that he had swelling around his left eye but unknown exactly what happened. Patient has traumatic brain injury and cannot give me a good history of what happened. There is does not appear to be any other fractures. Physical Examination MRDD features Moist mucous membranes, there is periorbital edema, there is tenderness over the zygomatic arch. When I open his I cannot move it laterally but he can move it mediately. I could not get a good eye exam he would not cooperate with exam No C-spine tenderness supple neck. Regular rate and rhythm without any obvious murmurs Clear lungs bilaterally speaking in full sentences without any obvious respiratory distress Abdomen soft and nontender no guarding or rebound He moves all extremities without signs of trauma but he does have some lower extremity contractures. Skin does not show any other signs of trauma other than the face He is not cooperative but has no gross focal deficit. Emergency Department Course and Treatment: CT showed multiple orbital floor fractures, zygomatic fractures and quite a bit of air, because there is still the possibility of entrapment I transfer the patient to trauma center. I called [facility] who accepted the patient Transfer in stable condition Impression: Little for fracture Zygomatic fracture This note was generated with [employer] dictation software. It may contain incorrect words, spelling, and punctuation that were not noted in review of the chart prior to signing ED Disposition - Plan for ED Patient: Referrals: [facility] Doctor,Out of [Primary Care Provider] -
--- NOTE | 2018-08-03 11:54 | ED.DCSUM_ITS ---
- ER Visit Summary Date of Service: 08/03/18 Chief Complaint: Eye injury History of Present Illness: The patient is a 48 M who presents with left eye injury. Unknown mechanism the healthcare worker noticed that he had swelling around his left eye but unknown exactly what happened. Patient has traumatic br ain injury and cannot give me a good history of what happened. There is does not appear to be any other fractures. Physical Examination MRDD features Moist mucous membranes, there is periorbital edema, there is tenderness over the zygomatic arch. When I open his I cannot move it laterally but he can move it mediately. I could not get a good eye exam he would not cooperate with exam No C-spine tenderness supple neck. Regular rate and rhythm without any obvious murmurs Clear lungs bilaterally speaking in full sentences without any obvious respiratory distress Abdomen soft and nontender no guarding or rebound He moves all extremities without signs of trauma but he does have some lower extremity contractures. Skin does not show any other signs of trauma other than the face He is not cooperative but has no gross focal deficit. Emergency Department Course and Treatment: CT showed multiple orbital floor fractures, zygomatic fractures and quite a bit of air, because there is still the possibility of entrapment I transfer the patient to trauma center. I called [facility] who accepted the patient Transfer in stable condition Impression: Little for fracture Zygomatic fracture This note was generated with [employer] dictation software. It may contain incorrect words, spelling, and punctuation that were not noted in review of the chart prior to signing ED Disposition - Plan for ED Patient: Referrals: [facility] Doctor,Out of [Primary Care Provider] -
[2018-08-03] MEDS: Haloperidol Lactate 5 MG/ML Vial IM (13:02)
[2018-08-03 13:05] VITALS: BP 144/81; PULSE 82; RESP 16; O2SAT 98
[2018-08-03 13:07] VITALS: BP 144/81; PULSE 82; RESP 16; TEMP 37.1; O2SAT 98
--- NOTE | 2018-08-03 13:26 | NURSING ---
CALLED [facility] FOR TRANSPORT
--- NOTE | 2018-08-03 13:32 | ED.RN ---
CÉSAR Foley : advised of the questionable situation of how the injury occured.
--- NOTE | 2018-08-03 13:43 | CM.ED ---
Social Work Note Updated by bedside RN that pt has fractures around his eye that do not have explanation and staff does not believe are consistent with a fall. Per staff pt is not alert and oriented. Placed call to pt's mother, Dot, who is his HCPOA. Explain that based on the presenting concerns this specifications writer is going to be contacting an budsman to investigate the situation and they will likely be contacting her this upcoming week. Understanding expressed. Dot becomes tearful and emotional support provided. Placed call to [facility] Elder Rights Unit and left requesting a return call during business hours to discuss concerns. Pt being transferred to [facility]. Left vm with [facility]. Placed call to [facility] Case Management Department to update as well via vm. SW to continue to follow and assist as needed. PLAN: Transfer to tertiary care center for further evaluation. Edith Coleman, EXPORT FREIGHT CLERK, ASSEMBLER UNIT
--- NOTE | 2018-08-04 14:03 | CM.ED ---
Social Work Note [facility] Returned call and spoke with Bianka. Bianka to reach out to pt's HCPOA and f/u with whether she would want to pursue further action. Recommends this video game script writer contact the [facility] Department of [facility] as well. Left vm with [facility] at . RIANA Davidson, GUCCI
== END 2018-08-03 14:00 | disposition short-term general hospital (02) ==
LOC: ED 12:14
PROVIDERS: Emergency Provider Emergency Medicine; Family Provider Family Medicine
DX: S02.40FA Zygomatic fracture, left side, initial encounter for closed fracture (principal); S02.32XA Fracture of orbital floor, left side, initial encounter for closed fracture; X58.XXXA Exposure to other specified factors, initial encounter; Y93.9 Activity, unspecified; Y92.9 Unspecified place or not applicable; Y99.9 Unspecified external cause status; G40.909 Epilepsy, unspecified, not intractable, without status epilepticus; J44.9 Chronic obstructive pulmonary disease, unspecified; F63.9 Impulse disorder, unspecified; Z87.820 Personal history of traumatic brain injury; Z79.82 Long term (current) use of aspirin; Z79.899 Other long term (current) drug therapy
CPT/HCPCS: 70480; 96372; 99285